=== PATIENT | male | born 1950 | race African-American/Black ===

== ENCOUNTER 2019-08-16 14:42 | Inpatient (IN) | payer OTHER ==
--- NOTE | 2019-08-16 14:55 | PDOC ---
History of Present Illness - General Stated Complaint: Syncope Time Seen by Provider: 08/16/19 14:55 History Source: Patient Exam Limitations: No Limitations - History of Present Illness Initial Comments: 08/18/19 23:35 HPI: 69M PMH HTN, CHF, s/p PPM, ?CKD, colon ca (active) BIBEMS after being found sitting up unresponsive at a restaurant. Daughter at bedside states she was shaking the pt and put ice on his face and he did not respond. Pt came to after EMS arrived. Pt states he has been struggling with insomnia and often sleeps during the day; states he felt sleepy before immediately before the episode. Endorses recent loose stool; currently on IV abx via PICC line at rehab (dc from [facility] for sepsis). Denies f/c, cp/palpitations/sob, n/v/ abdpain, dysuria/frequency. Pt is not linked into his medical hx; believes PPM is [employer]. No headstrike or fall - Not found on ground. Past History - Past Medical History Allergies/Adverse Reactions: Allergies Allergy/AdvReac Type Severity Reaction Status Date / Time LÁZARO Inhibitors Allergy Verified 08/16/19 15:32 Home Medications: Ambulatory Orders Aspirin [Adult Aspirin Regimen] 81 mg PO DAILY 08/16/19 Carvedilol [Coreg -] 25 mg PO BID 08/16/19 Clonidine HCl 0.2 mg PO [id number] 08/16/19 Clopidogrel Bisulfate [Plavix] 75 mg PO DAILY 08/16/19 Folic Acid 1 mg PO DAILY 08/16/19 Hydralazine HCl 25 mg PO TID 08/16/19 Isosorbide Mononitrate [Isosorbide Mononitrate ER] 60 mg PO DAILY 08/16/19 Nafcillin in Dextrose,Iso-Osm [Nafcillin 2 gm/ 100 ml Inj] 2 gm IV Q4H 08/16/19 Nifedipine ER [Procardia Xl -] 60 mg PO BID 08/16/19 Spironolactone 25 mg PO DAILY 08/16/19 Thiamine HCl [B-1] 100 mg PO DAILY 08/16/19 metroNIDAZOLE [Flagyl -] 500 mg PO TID 08/16/19 Review of Systems - Review of Systems Able to Perform ROS?: Yes Comments:: 08/18/19 23:35 ROS: CONSTITUTIONAL: Denies F / C HEENT: Denies headache, lightheadedness, dizziness. RESP: Denies SOB CARD: Denies chest pain, palpitations GI: Endorses diarrhea/loose stool. Denies N / V, abdominal pain, bloody stool, inability to tolerate PO : Denies dysuria, frequency SKIN: Denies rashes NEURO: Denies numbness, tingling, weakness Is the patient limited [place] proficient: No *Physical Exam - Physical Exam Comments: 08/18/19 23:35 PE: GEN: Well appearing, NAD, comfortable. AAOx3 HEENT: NC/AT, EOMI, PERRLA. No facial asymmetry. Moist mucous membranes. Normal voice. Supple neck w/ FROM. CV: S1/S2, RRR, no m/r/g LUNG: CTAB, no wheezes, crackles, rales, rhonchi. GI: soft, ndnt, +BS, no guarding, no rebound. No masses. EXTREMITIES: None/trace LE edema. No obvious deformities of all extremities. SKIN: warm, dry, normal turgor PSYCH: normal mood and affect NEURO: Moving all extremities well. ED Treatment Course - LABORATORY CBC & Chemistry Diagram: 08/17/19 06:00 08/17/19 06:00 Medical Decision Making - Medical Decision Making 08/16/19 15:45 MDM: 69M BIBEMS for unresponsive vs syncopal episode. DDx - dysrhythmia, dehydration, vasovagal, infection - cbc, cmp, cardiac, bnp - cxr - ekg 08/16/19 16:32 admit labs reviewed //ADMITTED Discharge - Discharge Information Problems reviewed: Yes Clinical Impression/Diagnosis: Loss of consciousness - Admission Yes - Follow up/Referral - Patient Discharge Instructions - Post Discharge Activity
[2019-08-16 16:01] LABS: BASO % 0.9 % (0-2.0); EOS % 12.6 % (0-4.5); HEMATOCRIT 21.9 % (35.4-49); HEMOGLOBIN 7.2 GM/dL (11.7-16.9); LYMPH % 11.4 % (8-40); MCH 29.2 pg (25.7-33.7); MCHC 32.7 g/dl (32.0-35.9); MEAN CELL VOLUME 89.4 fl (80-96); MEAN PLT VOLUME 6.5 fl (7.5-11.1); MONO % 7.2 % (3.8-10.2); NEUT % 67.9 % (42.8-82.8); PLATELET COUNT 458 K/MM3 (134-434); RBC 2.45 M/mm3 (4.00-5.60); RDW 16.9 % (11.9-15.9); WHITE BLOOD COUNT 7.9 K/mm3 (4.0-10.0)
[2019-08-16 16:13] LABS: INR 1.32 (0.83-1.09); PROTHROMBIN TIME (PATIENT) 15.6 SEC (9.7-13.0)
[2019-08-16 16:28] LABS: ALBUMIN 1.3 g/dl (3.4-5.0); ALK PHOS 57 U/L (45-117); ANION GAP 11 MMOL/L (8-16); BILIRUBIN,TOTAL 0.6 mg/dL (0.2-1); BLOOD UREA NITROGEN 39.7 mg/dL (7-18); CALCIUM 7.1 mg/dL (8.5-10.1); CHLORIDE 114 mmol/L (98-107); CO2 20 mmol/L (21-32); CREATININE 5.4 mg/dL (0.55-1.3); GLUCOSE,RANDOM 144 mg/dL (74-106); POTASSIUM 3.6 mmol/L (3.5-5.1); SGOT/AST 7 U/L (15-37); SGPT/ALT < 6 U/L (13-61); SODIUM 144 mmol/L (136-145); TOT PROT 4.6 g/dl (6.4-8.2)
[2019-08-16 16:29] LABS: N-TERMINAL BNP 1939.1 pg/ml (5-125)
--- NOTE | 2019-08-16 16:34 | PDOC ---
Attending Attestation - Resident Resident Name: Josh Crane - ED Attending Attestation I have performed the following: I have examined & evaluated the patient, The case was reviewed & discussed with the resident, I agree w/resident's findings & plan, Exceptions are as noted - HPI HPI: 08/16/19 16:32 69 M with h/o HTN, CHF, CKD, PPM, presenting for syncopal episode. Pt was at a restaurant eating when he slumped over unresponsive. Daughter states that she was unable to wake him for several minutes. Pt was seated the whole time, did not fall or hit his head. Pt has no recollection of the episode. Denies CP/SOB/ palpitations. Denies any preceding lightheadedness. Pt states that he is currently being treated for "sepsis" via picc line. - Physicial Exam PE: 08/16/19 16:33 GENERAL: Awake, alert, and fully oriented, in no acute distress. HEAD: No signs of trauma EYES: PERRLA, EOMI, sclera anicteric, conjunctiva clear ENT: Auricles normal inspection, hearing grossly normal, nares patent, oropharynx clear without exudates. Moist mucosa NECK: Nontender, no stepoffs, Normal ROM, supple, no lymphadenopathy, JVD, or masses LUNGS: Breath sounds equal, clear to auscultation bilaterally. No wheezes, and no crackles HEART: Regular rate and rhythm, normal S1 and S2, no murmurs, rubs or gallops ABDOMEN: Soft, nontender, normoactive bowel sounds. No guarding, no rebound. No masses EXTREMITIES: Normal range of motion, no edema. No clubbing or cyanosis. No cords, erythema, or tenderness NEUROLOGICAL: Cranial nerves II through XII intact. 5/5 strength and sensation in all extremities, Normal speech, normal gait, normal cerebellar function SKIN: Warm, Dry, normal turgor, no rashes or lesions noted. - Medical Decision Making 08/16/19 16:33 69 M with syncopal episode. EKG paced rhythm. - Labs, cardiac enzymes - Interrogate pacer
--- NOTE | 2019-08-16 17:15 | HP ---
<KbheatherEvangelist - Last Filed: 08/18/19 12:28> UPDATE: Called [facility] who provided some further history: Pt was seen for MSSA staph bacteremia without described source. Previously was treated with Vancomycin during that stay. Pt was sent out with PICC line and Naficillin to be completed 08/17/19 with reculture on Monday 08/20 for clearance. Pt also was found to have cirrhosis with significant ascites and received therapeutic paracentesis at that time. Further history provided was edited in original note as below CHIEF COMPLAINT: Syncopal episodes PCP: None Water Manager: None Renal: None HISTORY OF PRESENT ILLNESS: 69M with h/o HTN, CKD IV?, recent sepsis with long-term IV ABX via picc, PPM insertion 11/03 to unknown underlying disease who presents today with suspected syncopal event. Pt and daughter at bedside state that patient was eating at [facility] when he suddenly became unresponsive. His daughter was unable to arouse him even with ice/cold water on his face. Pt remained sitting upright and finally regained consciousness once EMS arrive. Upon regaining consciousness pt was at baseline mentation and did not have any notable urinary or fecal incontinence. Pt only had a few bites of food and did not finish his meal. In addition, pt has been having frequent diarrhea episodes without blood or mucus for the past 3 days. He has had poor appetite and admits not drinking any more frequently. Otherwise pt notes he's had insomnia for the past week and has not been sleeping well. He denies any SOB, CP, palpitations, preceeding lightheadedness/ dizziness, constitutional symptoms. Pt endorses abdominal pain of the lower quadrants intermittently for the past week as well. His abdomen has been increasing in distention and he has previously had a paracentesis about 1-2 months prior. He denies any fevers/ chills at this time. Denies any night sweats, alcohol drinking, previous liver failure, jaundice, pruritius. Pt describes recently being at [facility] where he received a septic workup for bacteremia (does not know source) and was given PICC line and IV Naficillin with frequency. Denies any soft tissue or bone infections. He reports he was bacteremic, but does not know what the source was PAST MEDICAL HISTORY: HTN CKD III Systolic HF (EF 40% at [facility]) PVD Atrial sensed-ventricular paced PPM PAST SURGICAL HISTORY: PPM insertion Prior paracentesis Social History: Smoking: Denies Alcohol: Denies Drugs: Denies [place] the [address] and moving to [place] closer to daughter. Independent in ADLs. Poor follow-up without outpatient physicians. Allergies LÁZARO Inhibitors Allergy (Verified 08/16/19 15:32) HOME MEDICATIONS: Home Medications Medication Instructions Recorded Aspirin [Adult Aspirin Regimen] 81 mg PO DAILY 08/16/19 Carvedilol [Coreg -] 25 mg PO BID 08/16/19 Clonidine HCl 0.2 mg PO [id number] 08/16/19 Clopidogrel Bisulfate [Plavix] 75 mg PO DAILY 08/16/19 Folic Acid 1 mg PO DAILY 08/16/19 Hydralazine HCl 25 mg PO TID 08/16/19 Isosorbide Mononitrate [Isosorbide 60 mg PO DAILY 08/16/19 Mononitrate ER] Nafcillin in Dextrose,Iso-Osm 2 gm IV Q4H 08/16/19 [Nafcillin 2 gm/ 100 ml Inj] Nifedipine ER [Procardia Xl -] 60 mg PO BID 08/16/19 Spironolactone 25 mg PO DAILY 08/16/19 Thiamine HCl [B-1] 100 mg PO DAILY 08/16/19 metroNIDAZOLE [Flagyl -] 500 mg PO TID 08/16/19 REVIEW OF SYSTEMS As per HPI PHYSICAL EXAMINATION Vital Signs - 24 hr 08/16/19 08/16/19 14:57 14:58 Temperature 97.7 F Pulse Rate 62 Respiratory 18 17 Rate Blood Pressure 106/57 L O2 Sat by Pulse 97 97 Oximetry (%) GENERAL: NAD, Awake, alert, and fully oriented HEENT: NC/AT, ALIA, EOMI without nystagmus, sclera anicteric, no conjunctival pallor, MMM NECK: No JVD LUNGS: CTA bilaterally. No wheezes, and no crackles. No accessory muscle use. CHEST: No thoracotomy scars, PPM noted without any overlying erythema HEART: RRR, normal S1 and S2 without murmur ABDOMEN: Soft, tensely distendend, slight TTP in lower quadrants, distant bowel sounds but present, no guarding, no rebound, no caput medusa, no hepatomegaly. EXTREMITIES: PICC line noted in L upper extremity C/D/I, 2+ DP pulses, warm, well-perfused. No calf tenderness. No peripheral edema. NEUROLOGICAL: CN II-XII intact. Strength 5/5 throughout. Sensation intact throughout. Stands without difficulty and mobile. Normal speech. Gait not observed. PSYCHIATRIC: Cooperative. Good eye contact. Appropriate mood and affect. SKIN: Warm, dry, no rashes or lesions noted Laboratory Results - last 24 hr 08/16/19 08/16/19 08/16/19 15:46 15:46 15:47 WBC 7.9 RBC 2.45 L Hgb 7.2 L Hct 21.9 L MCV 89.4 MCH 29.2 MCHC 32.7 RDW 16.9 H Plt Count 458 H MPV 6.5 L Absolute Neuts (auto) 5.3 Neutrophils % 67.9 Lymphocytes % 11.4 Monocytes % 7.2 Eosinophils % 12.6 H Basophils % 0.9 Nucleated RBC % 0 PT with INR INR Sodium 144 Potassium 3.6 Chloride 114 H Carbon Dioxide 20 L Anion Gap 11 BUN 39.7 H Creatinine 5.4 H Est GFR (CKD-EPI)AfAm 11.45 Est GFR (CKD-EPI)NonAf 9.88 POC Glucometer Random Glucose 144 H Calcium 7.1 L Total Bilirubin 0.6 AST 7 L ALT < 6 L Alkaline Phosphatase 57 Creatine Kinase 166 Creatine Kinase Index 1.2 CK-MB (CK-2) 2.0 Troponin I 0.02 B-Natriuretic Peptide 1939.1 H Total Protein 4.6 L Albumin 1.3 L 08/16/19 08/16/19 15:47 15:48 WBC RBC Hgb Hct MCV MCH MCHC RDW Plt Count MPV Absolute Neuts (auto) Neutrophils % Lymphocytes % Monocytes % Eosinophils % Basophils % Nucleated RBC % PT with INR 15.60 H INR 1.32 H Sodium Potassium Chloride Carbon Dioxide Anion Gap BUN Creatinine Est GFR (CKD-EPI)AfAm Est GFR (CKD-EPI)NonAf POC Glucometer 132 Random Glucose Calcium Total Bilirubin AST ALT Alkaline Phosphatase Creatine Kinase Creatine Kinase Index CK-MB (CK-2) Troponin I B-Natriuretic Peptide Total Protein Albumin Active Medications Aspirin (Ecotrin -) 81 mg PO DAILY ERMIAS Last Admin: 08/18/19 09:41 Dose: 81 mg Carvedilol (Coreg -) 25 mg PO BID [facility] Last Admin: 08/18/19 09:41 Dose: 25 mg Clonidine (Catapres -) 0.2 mg PO BID [facility] Last Admin: 08/18/19 09:43 Dose: 0.2 mg Folic Acid (Folic Acid -) 1 mg PO DAILY [facility] Last Admin: 08/18/19 09:41 Dose: 1 mg Hydralazine HCl (Apresoline -) 25 mg PO TID [facility] Last Admin: 08/18/19 06:32 Dose: 25 mg Nafcillin Sodium 2 gm/ (Dextrose) 100 mls @ 200 mls/hr IVPB Q4H-IV [facility] Last Admin: 08/18/19 09:42 Dose: 200 mls/hr Isosorbide Mononitrate (Imdur -) 60 mg PO DAILY [facility] Last Admin: 08/18/19 09:41 Dose: 60 mg Metronidazole (Flagyl -) 500 mg PO TID [facility] Last Admin: 08/18/19 06:32 Dose: 500 mg Nifedipine (Procardia Xl -) 60 mg PO BID [facility] Last Admin: 08/18/19 09:41 Dose: 60 mg Spironolactone (Aldactone -) 25 mg PO DAILY [facility] Last Admin: 08/18/19 09:41 Dose: 25 mg Thiamine HCl (Vitamin B1 -) 100 mg PO DAILY [facility] Last Admin: 08/18/19 09:42 Dose: 100 mg ASSESSMENT/PLAN: Syncopal Event Normocytic anemia Renal failure (CKD III?) Systolic heart failure Cirrhosis with ascites HTN --Syncopal event while sitting down possibly vasovagal from eating, however suspicious for other activity --Interrogate PPM; pt states it is [place], no paperwork available --Echocardiogram if unable to obtain records --Cardiac monitoring --Check orthostatics; if + can hydrate --Monitor for further episodes --Normocytic anemia likely from chronic disease, however pt is unsure of baseline --Ordered reticulocyte count, LDH, iron studies and b-vitamin studies for AM --Would avoid transfusion for now and repeat CBC --No active signs of bleeding; monitor --Pt with known CKD III clinically volume overloaded --No electrolyte abnormalities or any shortness of breath currently; no emergent dialysis need --Consulted nephrology --Pt has refused HD in the past per him; however it was discussed with him on 2 separate occasions --Renal/bladder U/S ordered; urine studies ordered --Will call for past medical history and records from [facility] as pt unsure of what agent and why he was receiving ABX through picc line --Will reconcile medications as well and continue home dose meds for HTN and Heart failure as hemodynamics allow FEN: Fluids: Avoid; fluid overloaded Electrolyte abnormalities: None Nutrition: Renal diet PPX: DVT - SCDs for now as unsure if blood loss is contributing to anemia GI - Not indicated right now Dispo: Admit to telemetry for complex medical problems and syncopal episode Evangelist Mckeon, DO - IM PGY-3 Visit type - Emergency Visit Emergency Visit: Yes ED Registration Date: 08/16/19 Care time: The patient presented to the Emergency Department on the above date and was hospitalized for further evaluation of their emergent condition. - New Patient This patient is new to me today: Yes Date on this admission: 08/16/19 - Critical Care Critical Care patient: No ATTENDING PHYSICIAN STATEMENT I saw and evaluated the patient. I reviewed the resident's note and discussed the case with the resident. I agree with the resident's findings and plan as documented. SUBJECTIVE: OBJECTIVE: ASSESSMENT AND PLAN: <Raji Purvis - Last Filed: 09/02/19 02:08> Seen and examined; please see resident note for further discussion. Agree with findings as documented above aside from as I have supplemented below. Independently verified all PE findings and omalley historical information. Reviewed all imaging, labs, and vitals. Discussed at length with subspecialty consults and resident team. No further complaints VS, labs, imaging reviewed NAD, AAO, resting in bed NC AT EOMI PERRLA Lungs without focal findings, w/ sym exp NT ND +BS CN2-12 wnl, no fnd HOME MEDICATIONS: Home Medications Medication Instructions Recorded Aspirin [Adult Aspirin Regimen] 81 mg PO DAILY 08/16/19 Carvedilol [Coreg -] 25 mg PO BID 08/16/19 Clonidine HCl 0.2 mg PO [id number] 08/16/19 Clopidogrel Bisulfate [Plavix] 75 mg PO DAILY 08/16/19 Folic Acid 1 mg PO DAILY 08/16/19 Hydralazine HCl 25 mg PO TID 08/16/19 Isosorbide Mononitrate [Isosorbide 60 mg PO DAILY 08/16/19 Mononitrate ER] Nafcillin in Dextrose,Iso-Osm 2 gm IV Q4H 08/16/19 [Nafcillin 2 gm/ 100 ml Inj] Nifedipine ER [Procardia Xl -] 60 mg PO BID 08/16/19 Spironolactone 25 mg PO DAILY 08/16/19 Thiamine HCl [B-1] 100 mg PO DAILY 08/16/19 metroNIDAZOLE [Flagyl -] 500 mg PO TID 08/16/19 10 sys ROS done and negative aside from HPI PHYSICAL EXAMINATION Vital Signs - 24 hr 08/16/19 08/16/19 08/16/19 14:57 14:58 17:28 Temperature 97.7 F 98.7 F Pulse Rate 62 Pulse Rate [ 69 Apical] Respiratory 18 17 18 Rate Blood Pressure 106/57 L Blood Pressure 105/65 [Left Arm] O2 Sat by Pulse 97 97 99 Oximetry (%) 08/16/19 08/16/19 08/16/19 18:16 18:30 21:00 Temperature 97.3 F L Pulse Rate 65 Pulse Rate [ Apical] Respiratory 20 20 Rate Blood Pressure 117/70 Blood Pressure [Left Arm] O2 Sat by Pulse 98 98 98 Oximetry (%) 08/16/19 08/17/19 08/17/19 22:00 02:00 06:00 Temperature 98.4 F 97.8 F 98.4 F Pulse Rate 64 68 73 Pulse Rate [ Apical] Respiratory 20 20 20 Rate Blood Pressure 125/77 133/88 138/80 Blood Pressure [Left Arm] O2 Sat by Pulse Oximetry (%) Laboratory Results - last 24 hr 08/16/19 08/16/19 08/16/19 15:46 15:46 15:47 WBC 7.9 RBC 2.45 L Hgb 7.2 L Hct 21.9 L MCV 89.4 MCH 29.2 MCHC 32.7 RDW 16.9 H Plt Count 458 H MPV 6.5 L Absolute Neuts (auto) 5.3 Neutrophils % 67.9 Lymphocytes % 11.4 Monocytes % 7.2 Eosinophils % 12.6 H Basophils % 0.9 Nucleated RBC % 0 ESR PT with INR INR Sodium 144 Potassium 3.6 Chloride 114 H Carbon Dioxide 20 L Anion Gap 11 BUN 39.7 H Creatinine 5.4 H Est GFR (CKD-EPI)AfAm 11.45 Est GFR (CKD-EPI)NonAf 9.88 POC Glucometer Random Glucose 144 H Calcium 7.1 L Total Bilirubin 0.6 AST 7 L ALT < 6 L Alkaline Phosphatase 57 Creatine Kinase 166 Creatine Kinase Index 1.2 CK-MB (CK-2) 2.0 Troponin I 0.02 C-Reactive Protein 2.3 H B-Natriuretic Peptide 1939.1 H Total Protein 4.6 L Albumin 1.3 L 08/16/19 08/16/19 08/16/19 15:47 15:48 17:45 WBC RBC Hgb Hct MCV MCH MCHC RDW Plt Count MPV Absolute Neuts (auto) Neutrophils % Lymphocytes % Monocytes % Eosinophils % Basophils % Nucleated RBC % ESR 53 H PT with INR 15.60 H INR 1.32 H Sodium Potassium Chloride Carbon Dioxide Anion Gap BUN Creatinine Est GFR (CKD-EPI)AfAm Est GFR (CKD-EPI)NonAf POC Glucometer 132 Random Glucose Calcium Total Bilirubin AST ALT Alkaline Phosphatase Creatine Kinase Creatine Kinase Index CK-MB (CK-2) Troponin I C-Reactive Protein B-Natriuretic Peptide Total Protein Albumin ASSESSMENT/PLAN: Agree with problem list and plan Need to Discuss overall goals of care and HD ATTENDING PHYSICIAN STATEMENT I saw and evaluated the patient. I reviewed the resident's note and discussed the case with the resident. I agree with the resident's findings and plan as documented. SUBJECTIVE: OBJECTIVE: ASSESSMENT AND PLAN:
[2019-08-16 18:29] VITALS: BMI 25.8
[2019-08-16] MEDS ORDERED: NAFCILLIN IN DEXTROSE ISO OSM IV SCH (18:30)
[2019-08-16] MEDS ORDERED: [UNRECOGNIZED DRUG - OTHER] IV SCH (18:30)
--- NOTE | 2019-08-16 18:35 | CONSULT ---
Consult Consult Specialty:: Nephrology Reason for Consultation:: CKD - History of Present Illness Chief Complaint: syncope History of Present Illness: Pt is a 69 year old male with pmhx of htn, chf, ckd, ppm, and ascites who presented to the ER after a syncopal episode. He does not remember what happened. He is a very poor historian. He says he does have kidney disease but does not know why. He denies nsaid use. He says that he does not follow with a primary as an outpt. He says that he is being treated for bacteria in the blood via a right arm picc line. He does have ascites on exam and he says that he had a paracentesis a few days ago. He denies dysuria or hematuria. He denies shortness of breath. - History Source History Provided By: Patient, Medical Record - Past Medical History Cardio/Vascular: Yes: CHF, HTN Renal/: Yes: Renal Inusuff Heme/Onc: Yes: Anemia - Alcohol/Substance Use Hx Alcohol Use: No - Smoking History Smoking history: Unknown if ever smoked Have you smoked in the past 12 months: No Home Medications - Allergies Allergies/Adverse Reactions: Allergies Allergy/AdvReac Type Severity Reaction Status Date / Time LÁZARO Inhibitors Allergy Verified 08/16/19 15:32 - Home Medications Home Medications: Ambulatory Orders Aspirin [Adult Aspirin Regimen] 81 mg PO DAILY 08/16/19 Carvedilol [Coreg -] 25 mg PO BID 08/16/19 Clonidine HCl 0.2 mg PO [id number] 08/16/19 Clopidogrel Bisulfate [Plavix] 75 mg PO DAILY 08/16/19 Folic Acid 1 mg PO DAILY 08/16/19 Hydralazine HCl 25 mg PO TID 08/16/19 Isosorbide Mononitrate [Isosorbide Mononitrate ER] 60 mg PO DAILY 08/16/19 Nafcillin in Dextrose,Iso-Osm [Nafcillin 2 gm/ 100 ml Inj] 2 gm IV Q4H 08/16/19 Nifedipine ER [Procardia Xl -] 60 mg PO BID 08/16/19 Spironolactone 25 mg PO DAILY 08/16/19 Thiamine HCl [B-1] 100 mg PO DAILY 08/16/19 metroNIDAZOLE [Flagyl -] 500 mg PO TID 08/16/19 Family Medical History Family History: Denies Review of Systems - Review of Systems Constitutional: reports: Malaise Eyes: reports: No Symptoms HENT: reports: No Symptoms Neck: reports: No Symptoms Cardiovascular: reports: No Symptoms Respiratory: reports: No Symptoms Gastrointestinal: reports: No Symptoms Genitourinary: reports: No Symptoms Musculoskeletal: reports: No Symptoms Neurological: reports: Syncope Endocrine: reports: No Symptoms Hematology/Lymphatic: reports: No Symptoms Psychiatric: reports: No Symptoms Physical Exam Vital Signs: Vital Signs Temperature 98.7 F 08/16/19 17:28 Pulse Rate 69 08/16/19 17:28 Respiratory Rate 18 08/16/19 17:28 Blood Pressure 105/65 08/16/19 17:28 O2 Sat by Pulse Oximetry (%) 99 08/16/19 17:28 Constitutional: Yes: Calm Eyes: Yes: Conjunctiva Clear HENT: Yes: Atraumatic Neck: Yes: Supple Cardiovascular: Yes: S1, S2 Respiratory: Yes: CTA Bilaterally Gastrointestinal: Yes: Ascites Renal/: Yes: WNL Edema: Yes Edema: LLE: 2+, RLE: 2+ Integumentary: Yes: WNL Neurological: Yes: Oriented Psychiatric: Yes: Oriented Labs: CBC, BMP 08/16/19 15:47 08/16/19 15:46 Laboratory Tests 08/16/19 08/16/19 08/16/19 15:46 15:46 15:47 WBC 7.9 Hgb 7.2 L Plt Count 458 H Sodium 144 Potassium 3.6 BUN 39.7 H Creatinine 5.4 H B-Natriuretic Peptide 1939.1 H Imaging - Results Chest X-ray: Report Reviewed Assessment/Plan Current Medications Generic Name Dose Route Start Last Admin Trade Name Freq PRN Reason Stop Dose Admin Aspirin 81 mg 08/17/19 10:00 Ecotrin - PO DAILY [facility] Clopidogrel Bisulfate 75 mg 08/17/19 10:00 Plavix - PO DAILY [facility] Non-Formulary Medication 2 gm 08/16/19 18:30 Nafcillin In Dextrose,Iso-Osm [Nafcillin 2 Gm/ 100 Ml Inj] IV Q4H [facility] Spironolactone 25 mg 08/17/19 10:00 Aldactone - PO DAILY [facility] Thiamine HCl 100 mg 08/17/19 10:00 Vitamin B1 - PO DAILY [facility] Impression 1. CKD 2. CHF 3. ascites 4. bactermia 5. htn Plan - check renal ultrasound - check ua and lytes - repeat labs in am - cont diuretics - avoid nsaids - renal diet
[2019-08-16] MEDS: NAFCILLIN - 2 GM in DEXTROSE 5%-WATER 100 ML IVPB SCH ×2 (20:45→22:38)
[2019-08-17] MEDS: NAFCILLIN - 2 GM in DEXTROSE 5%-WATER 100 ML IVPB SCH ×6 (01:01→22:26)
[2019-08-17 07:38] LABS: EOS % 13.7 % (0-4.5); HEMATOCRIT 23.9 % (35.4-49); LYMPH % 15.5 % (8-40); MCH 29.8 pg (25.7-33.7); MCHC 33.4 g/dl (32.0-35.9); MEAN CELL VOLUME 89.1 fl (80-96); NEUT % 61.8 % (42.8-82.8); PLATELET COUNT 500 K/MM3 (134-434); RBC 2.68 M/mm3 (4.00-5.60); WHITE BLOOD COUNT 6.8 K/mm3 (4.0-10.0)
[2019-08-17 08:29] LABS: BLOOD UREA NITROGEN 40.9 mg/dL (7-18); CALCIUM 7.3 mg/dL (8.5-10.1); CREATININE 5.3 mg/dL (0.55-1.3); POTASSIUM 3.8 mmol/L (3.5-5.1)
[2019-08-17] MEDS ORDERED: PATIENT'S OWN MEDICATION (NON-FORMULARY) (Clonidine Hcl [Clonidine Hcl] 0.2 MG) PO SCH (09:00)
--- NOTE | 2019-08-17 09:02 | PN ---
Physical Exam: SUBJECTIVE: Patient seen and examined patient is c/o swelling in his abd and has no pains he ate well no distress no fever or chills He came out of halfway with daughter due to have lunch with her and he passed out he doent remember what happened. no sob his tele is normal sinus rythem OBJECTIVE: Vital Signs Period Temp Pulse Resp BP Sys/Ibanez Pulse Ox Last 24 Hr 97.3 F-98.7 F 62-73 17-20 105-138/57-88 97-99 GENERAL: The patient is awake, alert, and fully oriented, in no acute distress. HEAD: Normal with no signs of trauma. EYES:paller positive ENT: Ears normal, nares patent, oropharynx clear without exudates, moist mucous membranes. NECK: Trachea midline, full range of motion, supple. LUNGS:henna dull in bases HEART: Regular rate and rhythm, S1, S2 without murmur, rub or gallop. ABDOMEN: distended and has ascites present EXTREMITIES: 2+ pulses, warm, well-perfused, no edema. NEUROLOGICAL: Cranial nerves II through XII grossly intact. Normal speech, gait not observed. Laboratory Results - last 24 hr 08/16/19 08/16/19 08/16/19 15:46 15:46 15:47 WBC 7.9 RBC 2.45 L Hgb 7.2 L Hct 21.9 L MCV 89.4 MCH 29.2 MCHC 32.7 RDW 16.9 H Plt Count 458 H MPV 6.5 L Absolute Neuts (auto) 5.3 Neutrophils % 67.9 Lymphocytes % 11.4 Monocytes % 7.2 Eosinophils % 12.6 H Basophils % 0.9 Nucleated RBC % 0 ESR Retic Count PT with INR INR Sodium 144 Potassium 3.6 Chloride 114 H Carbon Dioxide 20 L Anion Gap 11 BUN 39.7 H Creatinine 5.4 H Est GFR (CKD-EPI)AfAm 11.45 Est GFR (CKD-EPI)NonAf 9.88 POC Glucometer Random Glucose 144 H Calcium 7.1 L Iron TIBC Iron Saturation Unsaturated IBC Ferritin Total Bilirubin 0.6 AST 7 L ALT < 6 L Alkaline Phosphatase 57 LD Total Creatine Kinase 166 Creatine Kinase Index 1.2 CK-MB (CK-2) 2.0 Troponin I 0.02 C-Reactive Protein 2.3 H B-Natriuretic Peptide 1939.1 H Total Protein 4.6 L Albumin 1.3 L Vitamin B12 Serum Folate 08/16/19 08/16/19 08/16/19 15:47 15:48 17:45 WBC RBC Hgb Hct MCV MCH MCHC RDW Plt Count MPV Absolute Neuts (auto) Neutrophils % Lymphocytes % Monocytes % Eosinophils % Basophils % Nucleated RBC % ESR 53 H Retic Count PT with INR 15.60 H INR 1.32 H Sodium Potassium Chloride Carbon Dioxide Anion Gap BUN Creatinine Est GFR (CKD-EPI)AfAm Est GFR (CKD-EPI)NonAf POC Glucometer 132 Random Glucose Calcium Iron TIBC Iron Saturation Unsaturated IBC Ferritin Total Bilirubin AST ALT Alkaline Phosphatase LD Total Creatine Kinase Creatine Kinase Index CK-MB (CK-2) Troponin I C-Reactive Protein B-Natriuretic Peptide Total Protein Albumin Vitamin B12 Serum Folate 08/17/19 08/17/19 08/17/19 06:00 06:00 06:00 WBC 6.8 RBC 2.68 L Hgb 8.0 L Hct 23.9 L MCV 89.1 MCH 29.8 MCHC 33.4 RDW 17.0 H Plt Count 500 H MPV 7.0 L Absolute Neuts (auto) 4.2 Neutrophils % 61.8 Lymphocytes % 15.5 D Monocytes % 8.0 Eosinophils % 13.7 H Basophils % 1.0 Nucleated RBC % 0 ESR Retic Count 1.15 PT with INR INR Sodium 142 Potassium 3.8 Chloride 113 H Carbon Dioxide 21 Anion Gap 8 BUN 40.9 H Creatinine 5.3 H Est GFR (CKD-EPI)AfAm 11.72 Est GFR (CKD-EPI)NonAf 10.11 POC Glucometer Random Glucose 84 Calcium 7.3 L Iron 49 L TIBC 132 L Iron Saturation 37 Unsaturated IBC 83 L Ferritin 231.2 Total Bilirubin AST ALT Alkaline Phosphatase LD Total 110 Creatine Kinase Creatine Kinase Index CK-MB (CK-2) Troponin I C-Reactive Protein B-Natriuretic Peptide Total Protein Albumin Vitamin B12 1022 H Serum Folate 24 H Active Medications Generic Name Dose Route Start Last Admin Trade Name Freq PRN Reason Stop Dose Admin Aspirin 81 mg 08/17/19 10:00 Ecotrin - PO DAILY ERMIAS Carvedilol 25 mg 08/17/19 10:00 Coreg - PO BID ERMIAS Clopidogrel Bisulfate 75 mg 08/17/19 10:00 Plavix - PO DAILY ERMIAS Folic Acid 1 mg 08/17/19 10:00 Folic Acid - PO DAILY ERMIAS Hydralazine HCl 25 mg 08/17/19 14:00 Apresoline - PO TID ERMIAS Nafcillin Sodium 2 gm/ 100 mls @ 200 mls/hr 08/16/19 20:45 08/17/19 06:09 Dextrose IVPB 200 mls/hr Q4H-IV ERMIAS Administration Isosorbide Mononitrate 60 mg 08/17/19 10:00 Imdur - PO DAILY ERMIAS Metronidazole 500 mg 08/17/19 14:00 Flagyl - PO TID ERMIAS Nifedipine 60 mg 08/17/19 10:00 Procardia Xl - PO BID ERMIAS Non-Formulary Medication 0.2 mg 08/17/19 09:00 Clonidine Hcl [Clonidine Hcl] PO [id number] ERMIAS Spironolactone 25 mg 08/17/19 10:00 Aldactone - PO DAILY ERMIAS Thiamine HCl 100 mg 08/17/19 10:00 Vitamin B1 - PO DAILY ERMIAS ASSESSMENT/PLAN: Syncope r/o cause will do serial w/u cardio consult and serial cardiac enzymes Htn jinny start on medications and will watch sepsis He has pic line and spoke to halfway and it was suppose to be removed on Monday pt is taking the iv neficilin and called ID consult Anemia due to anemia fo ch disease will try to get labs form halfway and compare LIver cirhosis with ascites continue diuretics and gi consult awaiting ct scan of abd Visit type - Emergency Visit Emergency Visit: Yes ED Registration Date: 08/16/19 Care time: The patient presented to the Emergency Department on the above date and was hospitalized for further evaluation of their emergent condition. - New Patient This patient is new to me today: Yes Date on this admission: 08/17/19 - Critical Care Critical Care patient: No - Discharge Referral Referred to [facility] Med P.C.: No
--- NOTE | 2019-08-17 09:15 | CON.CARD ---
Consult Consult Specialty:: Cardiology Referred by:: Medicine Reason for Consultation:: Syncope - History of Present Illness Chief Complaint: Syncope History of Present Illness: 69 yo AA male known CKD, HTN and underlying liver disease Current assisted living facility Has known PPM placed 1.5 years ago at [facility] (thinks its medtronic) unclear reasons or indication per patient Has had decreased PO in take Now with witnessed syncopal event while eating yesterday Does not recall events leading up to syncope but denies any recent CV symptoms of dizziness, chest pain/pressure/tightness He does endorse exertional dyspnea Cannot identify longitudinal cardiac care but has had his PPM interrogated at home - History Source History Provided By: Patient Limitations to Obtaining History: Poor Historian - Past Medical History Cardio/Vascular: Yes: CHF, HTN Renal/: Yes: Renal Inusuff - Alcohol/Substance Use Hx Alcohol Use: No - Smoking History Smoking history: Unknown if ever smoked Have you smoked in the past 12 months: No Home Medications - Allergies Allergies/Adverse Reactions: Allergies Allergy/AdvReac Type Severity Reaction Status Date / Time LÁZARO Inhibitors Allergy Verified 08/16/19 15:32 - Home Medications Home Medications: Ambulatory Orders Aspirin [Adult Aspirin Regimen] 81 mg PO DAILY 08/16/19 Carvedilol [Coreg -] 25 mg PO BID 08/16/19 Clonidine HCl 0.2 mg PO [id number] 08/16/19 Clopidogrel Bisulfate [Plavix] 75 mg PO DAILY 08/16/19 Folic Acid 1 mg PO DAILY 08/16/19 Hydralazine HCl 25 mg PO TID 08/16/19 Isosorbide Mononitrate [Isosorbide Mononitrate ER] 60 mg PO DAILY 08/16/19 Nafcillin in Dextrose,Iso-Osm [Nafcillin 2 gm/ 100 ml Inj] 2 gm IV Q4H 08/16/19 Nifedipine ER [Procardia Xl -] 60 mg PO BID 08/16/19 Spironolactone 25 mg PO DAILY 08/16/19 Thiamine HCl [B-1] 100 mg PO DAILY 08/16/19 metroNIDAZOLE [Flagyl -] 500 mg PO TID 08/16/19 Family Medical History Family History: Denies, Unremarkable Review of Systems - Review of Systems Constitutional: reports: Loss of Appetite Respiratory: reports: SOB Vital Signs: Vital Signs Temperature 98.4 F 08/17/19 06:00 Pulse Rate 68 11/16/19 08:55 Respiratory Rate 20 08/17/19 08:55 Blood Pressure 165/97 08/17/19 08:55 O2 Sat by Pulse Oximetry (%) 98 08/17/19 08:55 Constitutional: Yes: No Distress Eyes: Yes: WNL Neck: Yes: WNL Respiratory: Yes: Rales Gastrointestinal: Yes: Distention Cardiovascular: Yes: Regular Rate and Rhythm JVD: Yes Edema: LLE: 1+, RLE: 1+ - Other Data Labs, Other Data: CBC, BMP 08/17/19 06:00 08/17/19 06:00 INR, PTT INR 1.32 (0.83-1.09) H 08/16/19 15:47 Troponin, BNP 08/16/19 08/16/19 15:46 15:46 Troponin I 0.02 B-Natriuretic Peptide 1939.1 H Troponin, BNP 08/16/19 08/16/19 15:46 15:46 Troponin I 0.02 B-Natriuretic Peptide 1939.1 H Imaging - Results Chest X-ray: Image Reviewed (Poor inspiration but no active pulmonary disease) Assessment/Plan 69 yo AA male with CKD, HTN underlying liver disease, known PPM now s/p syncope 1) Syncope -Unlcear etiology -Occurred while sitting down -Non-orthostatic here -Tele shows A-V pacing so far -Will interrogate his Medtronic device to assess for arrythmogenic causes 2) Elevated BNP -Clinically with volume overload on exam -Would obtain echo for LV function assessment. None on record here) -Has advanced CKD and has been informed in the past about possible HD, however he has refused this according to him -Will be very challenging to effectively remove fluid with lasix at this stage, would recommend readdressing possible HD if clinically appropriate. 3) HTN -Would resume outpatient antihypertensive regimen
[2019-08-17 09:59] LABS: EPI CELLS 6.6 /HPF (0-5/HPF); HYALINE CASTS 50 /lpf (0-8); URINE APPEARANCE TURBID; URINE BACTERIA 1.7 /hpf (NEGATIVE); URINE BILIRUBIN NEGATIVE (NEGATIVE); URINE COLOR DK YELLOW; URINE GLUCOSE (UA) NEGATIVE (NEGATIVE); URINE KETONE TRACE (NEGATIVE); URINE LEUK ESTERASE 1+ (NEGATIVE); URINE NITRITE NEGATIVE (NEGATIVE); URINE PROTEIN 3+ (NEGATIVE); URINE RBC 211 /hpf (0-4); URINE UROBILINOGEN 0.2 mg/dL (0.2-1.0); URINE WBC 53 /hpf (0-5)
[2019-08-17] MEDS ORDERED: CLOPIDOGREL BISULFATE 75 MG TABLET (FP) PO SCH (10:00)
[2019-08-17] MEDS: ASPIRIN COATED 81 MG TABLET.EC PO SCH (10:08)
[2019-08-17] MEDS: ISOSORBIDE MONONITRATE 60 MG TAB.SR.24H (FP) PO SCH (10:09)
[2019-08-17] MEDS: SPIRONOLACTONE 25 MG TABLET (FP) PO SCH (10:09)
[2019-08-17] MEDS: CARVEDILOL 25 MG TABLET (FP) PO SCH ×2 (10:09→22:24)
[2019-08-17] MEDS: FOLIC ACID 1 MG TABLET (FP) PO SCH (10:09)
[2019-08-17] MEDS: NIFEdipine E.R 60 MG TABLET (UD) PO SCH ×2 (10:09→22:24)
[2019-08-17] MEDS: THIAMINE HCL 100 MG TABLET (FP) PO SCH (10:10)
--- NOTE | 2019-08-17 10:10 | CON.GI ---
Consult Consult Specialty:: GI Referred by:: Dr Lucia Reason for Consultation:: ascites, h/o cirrhosis - History of Present Illness Chief Complaint: Pt admitted with syncope occurring while in restaurant. No residual neurologic signs. He states he was told of cirrhosis in the past but does not know of any other history of liver disease. He has had paracentesis in the past. His main GI complaints now are a distended abdomen and diarrhea for several weeks. He states he had a colonoscopy last year. He says he also has been told of anemia. As mentioned by others he has been being treated for septicemia. - History Source History Provided By: Patient Limitations to Obtaining History: Poor Historian - Past Medical History Cardio/Vascular: Yes: CHF, HTN, Other (pacemaker) Gastrointestinal: Yes: Ascites Hepatobiliary: Yes: Cirrhosis Renal/: Yes: Renal Inusuff Heme/Onc: Yes: Anemia - Past Surgical History Past Surgical History: Yes: Permanent Pacemaker - Alcohol/Substance Use Hx Alcohol Use: No - Smoking History Smoking history: Unknown if ever smoked Have you smoked in the past 12 months: No - Social History Usual Living Arrangement: Assisted Living Home Medications - Allergies Allergies/Adverse Reactions: Allergies Allergy/AdvReac Type Severity Reaction Status Date / Time LÁZARO Inhibitors Allergy Verified 08/16/19 15:32 - Home Medications Home Medications: Ambulatory Orders Aspirin [Adult Aspirin Regimen] 81 mg PO DAILY 08/16/19 Carvedilol [Coreg -] 25 mg PO BID 08/16/19 Clonidine HCl 0.2 mg PO [id number] 08/16/19 Clopidogrel Bisulfate [Plavix] 75 mg PO DAILY 08/16/19 Folic Acid 1 mg PO DAILY 08/16/19 Hydralazine HCl 25 mg PO TID 08/16/19 Isosorbide Mononitrate [Isosorbide Mononitrate ER] 60 mg PO DAILY 08/16/19 Nafcillin in Dextrose,Iso-Osm [Nafcillin 2 gm/ 100 ml Inj] 2 gm IV Q4H 08/16/19 Nifedipine ER [Procardia Xl -] 60 mg PO BID 08/16/19 Spironolactone 25 mg PO DAILY 08/16/19 Thiamine HCl [B-1] 100 mg PO DAILY 08/16/19 metroNIDAZOLE [Flagyl -] 500 mg PO TID 08/16/19 Physical Exam-GI Vital Signs: Vital Signs Temperature 98.8 F 08/17/19 09:02 Pulse Rate 72 08/17/19 09:02 Respiratory Rate 20 08/17/19 09:02 Blood Pressure 165/97 08/17/19 09:02 O2 Sat by Pulse Oximetry (%) 98 08/17/19 08:55 Gastrointestinal Inspection: Yes: Ascites (Tense ascites extending to scrotum.) , Distention ...Palpate: Yes: Firm/Rigid Labs: CBC, BMP 08/17/19 06:00 08/17/19 06:00 INR, PTT INR 1.32 (0.83-1.09) H 08/16/19 15:47 CMP Sodium 142 mmol/L (136-145) 08/17/19 06:00 Potassium 3.8 mmol/L (3.5-5.1) 08/17/19 06:00 Chloride 113 mmol/L (98-107) H 08/17/19 06:00 Carbon Dioxide 21 mmol/L (21-32) 08/17/19 06:00 Anion Gap 8 MMOL/L (8-16) 08/17/19 06:00 BUN 40.9 mg/dL (7-18) H 08/17/19 06:00 Creatinine 5.3 mg/dL (0.55-1.3) H 08/17/19 06:00 Est GFR (CKD-EPI)AfAm 11.72 08/17/19 06:00 Est GFR (CKD-EPI)NonAf 10.11 08/17/19 06:00 POC Glucometer 132 UNITS (80-120) 08/16/19 15:48 Random Glucose 84 mg/dL (74-106) 08/17/19 06:00 Hemoglobin A1c % < 4.2 % (4.2-6.3) L 08/17/19 06:00 Calcium 7.3 mg/dL (8.5-10.1) L 08/17/19 06:00 Iron 49 ug/dL (50-175) L 08/17/19 06:00 TIBC 132 ug/dL (250-450) L 08/17/19 06:00 Iron Saturation 37 % (17.5-39) 08/17/19 06:00 Unsaturated IBC 83 ug/dL (200-275) L 08/17/19 06:00 Ferritin 231.2 ng/ml (8-388) 08/17/19 06:00 Total Bilirubin 0.6 mg/dL (0.2-1) 08/16/19 15:46 AST 7 U/L (15-37) L 08/16/19 15:46 ALT < 6 U/L (13-61) L 08/16/19 15:46 Alkaline Phosphatase 57 U/L (45-117) 08/16/19 15:46 LD Total 110 U/L (87-246) 08/17/19 06:00 Creatine Kinase 166 U/L (26-308) 08/16/19 15:46 Creatine Kinase Index 1.2 % (0.0-5.0) 08/16/19 15:46 CK-MB (CK-2) 2.0 ng/mL (0.5-3.6) 08/16/19 15:46 Troponin I 0.02 ng/ml (0.00-0.05) 08/16/19 15:46 C-Reactive Protein 2.3 MG/DL (0.00-0.3) H 08/16/19 15:46 B-Natriuretic Peptide 1939.1 pg/ml (5-125) H 08/16/19 15:46 Total Protein 4.6 g/dl (6.4-8.2) L 08/16/19 15:46 Albumin 1.3 g/dl (3.4-5.0) L 08/16/19 15:46 Vitamin B12 1022 pg/ml (193-986) H 08/17/19 06:00 Serum Folate 24 ng/mL (3.1-17.5) H 08/17/19 06:00 Imaging - Results Chest X-ray: Report Reviewed Problem List - Problems (1) Ascites Assessment/Plan: I question whether he has cirrhosis. His platelet count is over 400K, which would be unusual in someone whose liver is bad enough to lead to this degree of ascites. He is severely hypoalbuminenic with 3+ proteinuria. Does he have nephrotic syndrome as the cause of his hypoalbuminemia and ascites? Note that his aminotransferases are not only not elevated, they are low. I also stopped his clopidogrel so it will be possible in a few days to tap his ascites. . Code(s): R18.8 - OTHER ASCITES (2) Diarrhea Assessment/Plan: As some receiving antibiotics for some weeks, the most likely diagnosis is C. difficile. I ordered a C. difficile toxin. Code(s): R19.7 - DIARRHEA, UNSPECIFIED
[2019-08-17] MEDS: cloNIDine HCL 0.1 MG TABLET PO SCH ×2 (10:20→22:25)
--- NOTE | 2019-08-17 12:19 | PN ---
Progress Note (short form) - Note Progress Note: ID consult dictated per history and physical he is finishing nafcillin (alf) this weekend for MSSA bacteremia- no other details known- he has a picc line admitted for syncope no fevers or chills no further details available per dr Mckeon's note his nafcillin should be discontinued in am no need for isolation denies diarrhea to me -one loose stool a day having a workup for ascites and syncope now would repeat blood cultures off antiibotics as he has a PPM antibotics to be completed today -will d/w Primary service on Monday Problem List - Problems (1) Bacteremia Code(s): R78.81 - BACTEREMIA
[2019-08-17] MEDS: metroNIDAZOLE 500 MG TABLET PO SCH ×2 (13:55→22:25)
[2019-08-17] MEDS: hydrALAZINE HCL 25 MG TABLET (FP) PO SCH ×2 (13:55→22:24)
[2019-08-17] MEDS ORDERED: FUROSEMIDE 40 MG/4 ML INJECTABLE VIAL IVPUSH ONE (16:36)
--- NOTE | 2019-08-17 16:36 | PN ---
Progress Note, Physician History of Present Illness: Pt seen and examined at bedside. He is awake and alert. He denies shortness of breath. He complains of discomfort from the ascites. - Current Medication List Current Medications: Active Medications Aspirin (Ecotrin -) 81 mg PO DAILY [facility] Last Admin: 08/17/19 10:08 Dose: 81 mg Carvedilol (Coreg -) 25 mg PO BID [facility] Last Admin: 08/17/19 10:09 Dose: 25 mg Clonidine (Catapres -) 0.2 mg PO BID [facility] Last Admin: 08/17/19 10:20 Dose: 0.2 mg Folic Acid (Folic Acid -) 1 mg PO DAILY [facility] Last Admin: 08/17/19 10:09 Dose: 1 mg Hydralazine HCl (Apresoline -) 25 mg PO TID [facility] Last Admin: 08/17/19 13:55 Dose: 25 mg Nafcillin Sodium 2 gm/ (Dextrose) 100 mls @ 200 mls/hr IVPB Q4H-IV [facility] Last Admin: 08/17/19 13:55 Dose: 200 mls/hr Isosorbide Mononitrate (Imdur -) 60 mg PO DAILY [facility] Last Admin: 08/17/19 10:09 Dose: 60 mg Metronidazole (Flagyl -) 500 mg PO TID [facility] Last Admin: 08/17/19 13:55 Dose: 500 mg Nifedipine (Procardia Xl -) 60 mg PO BID [facility] Last Admin: 08/17/19 10:09 Dose: 60 mg Spironolactone (Aldactone -) 25 mg PO DAILY [facility] Last Admin: 08/17/19 10:09 Dose: 25 mg Thiamine HCl (Vitamin B1 -) 100 mg PO DAILY [facility] Last Admin: 08/17/19 10:10 Dose: 100 mg - Objective Vital Signs: Vital Signs Temperature 97.7 F 08/17/19 14:00 Pulse Rate 64 08/17/19 14:00 Respiratory Rate 20 08/17/19 14:00 Blood Pressure 131/73 08/17/19 14:00 O2 Sat by Pulse Oximetry (%) 98 08/17/19 08:55 Constitutional: Yes: Calm Eyes: Yes: Conjunctiva Clear HENT: Yes: Atraumatic Neck: Yes: Supple Cardiovascular: Yes: S1, S2 Respiratory: Yes: CTA Bilaterally Gastrointestinal: Yes: Ascites Genitourinary: Yes: WNL Edema: Yes Edema: LLE: 1+, RLE: 1+ Neurological: Yes: Oriented Psychiatric: Yes: Oriented Labs: CBC, BMP 08/17/19 06:00 08/17/19 06:00 INR, PTT INR 1.32 (0.83-1.09) H 08/16/19 15:47 Assessment/Plan Current Medications Generic Name Dose Route Start Last Admin Trade Name Renan PRN Reason Stop Dose Admin Aspirin 81 mg 08/17/19 10:00 08/17/19 10:08 Ecotrin - PO 81 mg DAILY ERMIAS Administration Carvedilol 25 mg 08/17/19 10:00 08/17/19 10:09 Coreg - PO 25 mg BID ERMIAS Administration Clonidine 0.2 mg 08/17/19 10:00 08/17/19 10:20 Catapres - PO 0.2 mg BID ERMIAS Administration Folic Acid 1 mg 08/17/19 10:00 08/17/19 10:09 Folic Acid - PO 1 mg DAILY ERMIAS Administration Hydralazine HCl 25 mg 08/17/19 14:00 08/17/19 13:55 Apresoline - PO 25 mg TID ERMIAS Administration Nafcillin Sodium 2 gm/ 100 mls @ 200 mls/hr 08/16/19 20:45 08/17/19 13:55 Dextrose IVPB 200 mls/hr Q4H-IV ERMIAS Administration Isosorbide Mononitrate 60 mg 08/17/19 10:00 08/17/19 10:09 Imdur - PO 60 mg DAILY ERMIAS Administration Metronidazole 500 mg 08/17/19 14:00 08/17/19 13:55 Flagyl - PO 500 mg TID ERMIAS Administration Nifedipine 60 mg 08/17/19 10:00 08/17/19 10:09 Procardia Xl - PO 60 mg BID ERMIAS Administration Spironolactone 25 mg 08/17/19 10:00 08/17/19 10:09 Aldactone - PO 25 mg DAILY ERMIAS Administration Thiamine HCl 100 mg 08/17/19 10:00 08/17/19 10:10 Vitamin B1 - PO 100 mg DAILY ERMIAS Administration Impression 1. CKD 2. CHF 3. ascites 4. bactermia 5. htn Plan - start lasix - GI for paracentesis - monitor lytes - urine studies reviewed - cont diuretics - avoid nsaids - renal diet
--- NOTE | 2019-08-17 16:51 | CONS ---
INFECTIOUS DISEASE CONSULTATION DATE OF CONSULTATION: DATE OF DICTATION: 08/17/2019 This is a 69-year-old man who was transferred to the hospital after he apparently had a suspected syncopal event. He apparently was eating when he suddenly became unresponsive. He finally regained consciousness when EMS arrived, and he was at his baseline. He is currently residing at the halfway where he is getting long -term IV antibiotics with nafcillin for apparently an MSSA staphylococcal infection. Details of which are today is Monday were obtained yesterday via the admitting doctor who called the hospital, was able to speak with somebody. Per his H&P, the patient is to complete his nafcillin on the with re-culture in 72 hours for clearance. When he was hospitalized for his staphylococcal infection, apparently, there was no source found and he was found to have cirrhosis with ascites and had received a therapeutic paracentesis. The patient reports again that his abdomen has gotten larger. He denies any history of alcohol use or hepatitis in the past. He denies any fevers and chills and otherwise feels well. PAST MEDICAL HISTORY: Notable for hypertension, CKD, heart failure, PVD, and he has a pacemaker for unclear reasons and this recent staphylococcal infection. SOCIAL HISTORY: He lives in the [place]. 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 There is no history of cigarette, alcohol, or substance use. He has a daughter who lives in [place]. ALLERGIES: He is allergic to LÁZARO INHIBITORS. MEDICATIONS AN OUTPATIENT: Include aspirin, Coreg, clonidine, Plavix, folic acid, hydralazine, isosorbide, nafcillin, nifedipine, spironolactone, thiamine, and Flagyl. It is unclear why he is on the Flagyl. REVIEW OF SYSTEMS: He denies nausea, vomiting. He denies diarrhea. He reports 1 loose bowel movement a day. As stated before, there is no history of HIV, hepatitis in the past. PHYSICAL EXAMINATION: Vital Signs: Temperature is 97.7, pulse of 64, blood pressure 131/73, respiratory rate is 20. He is saturating 98% on room air. HEENT: He is normocephalic. His eyes are anicteric. Neck: Supple. Skin: PICC line site is without any erythema. His pacemaker site is without any erythema. Lungs: Diminished breath sounds at the bases. Abdomen: Soft and he has ascites. Extremities: Without edema. LABORATORY DATA: White count is 6.8, hemoglobin is 8, platelets are 500,000. Sedimentation rate is 53. His reticulocyte count is normal. His BUN is 40 and creatinine 5.3. His urinalysis has 1+ leukocyte esterase with 53 white cells, and his hepatitis serology is pending. In summary, this is a 69-year-old man completing a course of nafcillin for methicillin-sensitive Staphylococcus aureus bacteremia diagnosed at another facility. Per the history and physical by Dr. Mckeon, his nafcillin should be discontinued in the morning. There is no need for isolation. He is having a workup for his ascites and syncope. Would repeat blood cultures off antibiotics as he has a permanent pacemaker and would get records from [facility] if needed. It is unclear why he is on the metronidazole; so, we will have to speak to the halfway. Further recommendations to follow. Thuy [id number] [email or web address]
[2019-08-17] MEDS ORDERED: PT OWN MED DRAWER 7, Y5N ONE ×2 (16:54→21:52)
[2019-08-18] MEDS: NAFCILLIN - 2 GM in DEXTROSE 5%-WATER 100 ML IVPB SCH ×6 (02:00→21:42)
[2019-08-18] MEDS: metroNIDAZOLE 500 MG TABLET PO SCH ×3 (06:32→21:37)
[2019-08-18] MEDS: hydrALAZINE HCL 25 MG TABLET (FP) PO SCH ×3 (06:32→21:37)
[2019-08-18] MEDS: FOLIC ACID 1 MG TABLET (FP) PO SCH (09:41)
[2019-08-18] MEDS: SPIRONOLACTONE 25 MG TABLET (FP) PO SCH (09:41)
[2019-08-18] MEDS: ISOSORBIDE MONONITRATE 60 MG TAB.SR.24H (FP) PO SCH (09:41)
[2019-08-18] MEDS: NIFEdipine E.R 60 MG TABLET (UD) PO SCH ×2 (09:41→21:37)
[2019-08-18] MEDS: ASPIRIN COATED 81 MG TABLET.EC PO SCH (09:41)
[2019-08-18] MEDS: CARVEDILOL 25 MG TABLET (FP) PO SCH ×2 (09:41→21:37)
[2019-08-18] MEDS: THIAMINE HCL 100 MG TABLET (FP) PO SCH (09:42)
[2019-08-18] MEDS: cloNIDine HCL 0.1 MG TABLET PO SCH ×2 (09:43→21:37)
--- NOTE | 2019-08-18 09:43 | PN ---
Progress Note, Physician History of Present Illness: No CV complaints No further syncope Still with nausea - Current Medication List Current Medications: Active Medications Aspirin (Ecotrin -) 81 mg PO DAILY [facility] Last Admin: 08/17/19 10:08 Dose: 81 mg Carvedilol (Coreg -) 25 mg PO BID [facility] Last Admin: 08/17/19 22:24 Dose: 25 mg Clonidine (Catapres -) 0.2 mg PO BID [facility] Last Admin: 08/17/19 22:25 Dose: 0.2 mg Folic Acid (Folic Acid -) 1 mg PO DAILY [facility] Last Admin: 08/17/19 10:09 Dose: 1 mg Hydralazine HCl (Apresoline -) 25 mg PO TID [facility] Last Admin: 08/18/19 06:32 Dose: 25 mg Nafcillin Sodium 2 gm/ (Dextrose) 100 mls @ 200 mls/hr IVPB Q4H-IV [facility] Last Admin: 08/18/19 06:33 Dose: 200 mls/hr Isosorbide Mononitrate (Imdur -) 60 mg PO DAILY [facility] Last Admin: 08/17/19 10:09 Dose: 60 mg Metronidazole (Flagyl -) 500 mg PO TID [facility] Last Admin: 08/18/19 06:32 Dose: 500 mg Nifedipine (Procardia Xl -) 60 mg PO BID [facility] Last Admin: 08/17/19 22:24 Dose: 60 mg Spironolactone (Aldactone -) 25 mg PO DAILY [facility] Last Admin: 08/17/19 10:09 Dose: 25 mg Thiamine HCl (Vitamin B1 -) 100 mg PO DAILY [facility] Last Admin: 08/17/19 10:10 Dose: 100 mg - Objective Vital Signs: Vital Signs Temperature 97.7 F 08/17/19 16:51 Pulse Rate 71 08/18/19 06:00 Respiratory Rate 20 08/18/19 08:32 Blood Pressure 123/80 08/18/19 06:00 O2 Sat by Pulse Oximetry (%) 98 08/18/19 08:32 Constitutional: Yes: No Distress Cardiovascular: Yes: Regular Rate and Rhythm Respiratory: Yes: Rales Edema: Yes Labs: CBC, BMP 08/17/19 06:00 08/17/19 06:00 INR, PTT INR 1.32 (0.83-1.09) H 08/16/19 15:47 Assessment/Plan 69 yo AA male with CKD, HTN underlying liver disease, known PPM now s/p syncope 1) Syncope -Unclear etiology -Occurred while sitting down -Non-orthostatic here -Tele continues to show A-V pacing so far -Despite calling 4 device brands ([employer], [employer], [employer] and [employer]) none of these device brands have him registered. Patient believes it was a Medtronic but has no documentation. Looking at the CXR it looks like a Medtronic dual camber PPM. Will have [facility] contacted and medical records pulled. 2) Elevated BNP -Clinically with volume overload on exam -Would obtain echo for LV function assessment. None on record here -Has advanced CKD and has been informed in the past about possible HD, however he has refused this according to him -Will be very challenging to effectively remove fluid with lasix at this stage, would recommend readdressing possible HD if clinically appropriate. 3) HTN -Would resume outpatient antihypertensive regimen
--- NOTE | 2019-08-18 11:20 | PN ---
Progress Note (short form) - Note Progress Note: Patient is comfortable has no new symptoms except he is still complaining of distention of the abdomen but no pain no fever no chills no nausea vomiting he ate well. I spoke to senior livingarea director of home health sales yesterday and found out to be he has been on nafcillin for some kind of sepsis and today's pulse was last day and is catheter was both come out on Monday. Patient already seen by infectious disease in the hospital he has no sign of any infection blood cultures are negative. He is also seen by molded rubber goods cutter in the hospital by Dr. Ubaldo velazquez and recommended to do the paracentesis. Patient is on Plavix which has been held due to paracentesis anticipation on Monday. Vital Signs Period Temp Pulse Resp BP Sys/Ibanez Pulse Ox Last 24 Hr 97.7 F-98.5 F 64-71 20-20 118-134/57-80 98-98 Physical examination HEENT pallor positive neck supple negative JVD. Lungs bilateral symmetrical Heart S1-S2 positive no arrhythmia noted Abdomen soft and distended ascites present. Neurological he is alert awake oriented and nonfocal and ambulatory CBC, BMP 08/17/19 06:00 08/17/19 06:00 ASSESSMENT/PLAN: Syncope r/o cause will do serial w/u cardio consult and serial cardiac enzymes He still have no arrhythmia on telemetry Htn jinny start on medications and will watch sepsis He has pic line and spoke to senior living and it was suppose to be removed on Monday Patient is seen by infectious disease and recommended to stop antibiotics. Anemia due to anemia fo ch disease CBC is stable LIver cirhosis with ascites continue diuretics, patient is going to be needing paracentesis tomorrow. He is off Plavix due to preop for paracentesis Awaiting abdominal sonogram. Chronic kidney disease Patient has been recommended many time to go on dialysis by outpatient culinary manager but he refuses in the hospital he is seeing Dr. contreras and they are going to arrange for his further renal disease management. Visit type - Emergency Visit Emergency Visit: Yes ED Registration Date: 08/16/19 Care time: The patient presented to the Emergency Department on the above date and was hospitalized for further evaluation of their emergent condition. - New Patient This patient is new to me today: No - Critical Care Critical Care patient: No - Discharge Referral Referred to [facility] No
--- NOTE | 2019-08-18 16:51 | EKG ---
Test Reason : Blood Pressure : / mmHG Vent. Rate : 066 BPM Atrial Rate : 066 BPM P-R Int : 204 ms QRS Dur : 214 ms QT Int : 522 ms P-R-T Axes : 048 -55 112 degrees QTc Int : 547 ms Atrial-sensed ventricular-paced rhythm ABNORMAL ECG WHEN COMPARED WITH ECG OF 17-AUG-2019 10:51, PREMATURE VENTRICULAR COMPLEXES ARE NO LONGER PRESENT Confirmed by ALEX MCNULTY, MATEO ([id number]) on 08/18/2019 4:51:40 PM Referred By: Mason ECHEVERRIA Confirmed By:MATEO JOHNSON MD
[2019-08-18] MEDS ORDERED: PT OWN MED DRAWER 7, Y5N ONE (17:22)
[2019-08-18] MEDS ORDERED: FUROSEMIDE 40 MG/4 ML INJECTABLE VIAL IVPUSH ONE (17:23)
--- NOTE | 2019-08-18 17:25 | PN ---
Progress Note, Physician History of Present Illness: Pt seen and examined at bedside. He is awake and alert. he complains of ascites. - Current Medication List Current Medications: Active Medications Aspirin (Ecotrin -) 81 mg PO DAILY [facility] Last Admin: 08/18/19 09:41 Dose: 81 mg Carvedilol (Coreg -) 25 mg PO BID [facility] Last Admin: 08/18/19 09:41 Dose: 25 mg Clonidine (Catapres -) 0.2 mg PO BID [facility] Last Admin: 08/18/19 09:43 Dose: 0.2 mg Folic Acid (Folic Acid -) 1 mg PO DAILY [facility] Last Admin: 08/18/19 09:41 Dose: 1 mg Furosemide (Lasix Injection -) 80 mg IVPUSH ONCE ONE Stop: 08/18/19 17:24 Hydralazine HCl (Apresoline -) 25 mg PO TID [facility] Last Admin: 08/18/19 15:03 Dose: 25 mg Nafcillin Sodium 2 gm/ (Dextrose) 100 mls @ 200 mls/hr IVPB Q4H-IV [facility] Last Admin: 08/18/19 15:04 Dose: 200 mls/hr Isosorbide Mononitrate (Imdur -) 60 mg PO DAILY [facility] Last Admin: 08/18/19 09:41 Dose: 60 mg Metronidazole (Flagyl -) 500 mg PO TID [facility] Last Admin: 08/18/19 15:03 Dose: 500 mg Nifedipine (Procardia Xl -) 60 mg PO BID [facility] Last Admin: 08/18/19 09:41 Dose: 60 mg Spironolactone (Aldactone -) 25 mg PO DAILY [facility] Last Admin: 08/18/19 09:41 Dose: 25 mg Thiamine HCl (Vitamin B1 -) 100 mg PO DAILY [facility] Last Admin: 08/18/19 09:42 Dose: 100 mg - Objective Vital Signs: Vital Signs Temperature 97.7 F 08/17/19 16:51 Pulse Rate 63 08/18/19 13:59 Respiratory Rate 18 08/18/19 13:59 Blood Pressure 139/85 08/18/19 13:59 O2 Sat by Pulse Oximetry (%) 98 08/18/19 08:32 Constitutional: Yes: Calm Eyes: Yes: Conjunctiva Clear HENT: Yes: Atraumatic Neck: Yes: Supple Cardiovascular: Yes: S1, S2 Respiratory: Yes: CTA Bilaterally Gastrointestinal: Yes: Ascites Genitourinary: Yes: WNL Edema: Yes Edema: LLE: 1+, RLE: 1+ Neurological: Yes: Oriented Psychiatric: Yes: Oriented Labs: CBC, BMP 08/17/19 06:00 08/17/19 06:00 INR, PTT INR 1.32 (0.83-1.09) H 08/16/19 15:47 Assessment/Plan Current Medications Generic Name Dose Route Start Last Admin Trade Name Renan PRN Reason Stop Dose Admin Aspirin 81 mg 08/17/19 10:00 08/18/19 09:41 Ecotrin - PO 81 mg DAILY [facility] Administration Carvedilol 25 mg 08/17/19 10:00 08/18/19 09:41 Coreg - PO 25 mg BID [facility] Administration Clonidine 0.2 mg 08/17/19 10:00 08/18/19 09:43 Catapres - PO 0.2 mg BID [facility] Administration Folic Acid 1 mg 08/17/19 10:00 08/18/19 09:41 Folic Acid - PO 1 mg DAILY [facility] Administration Hydralazine HCl 25 mg 08/17/19 14:00 08/18/19 15:03 Apresoline - PO 25 mg TID [facility] Administration Nafcillin Sodium 2 gm/ 100 mls @ 200 mls/hr 08/16/19 20:45 08/18/19 15:04 Dextrose IVPB 200 mls/hr Q4H-IV [facility] Administration Isosorbide Mononitrate 60 mg 08/17/19 10:00 08/18/19 09:41 Imdur - PO 60 mg DAILY [facility] Administration Metronidazole 500 mg 08/17/19 14:00 08/18/19 15:03 Flagyl - PO 500 mg TID [facility] Administration Nifedipine 60 mg 08/17/19 10:00 08/18/19 09:41 Procardia Xl - PO 60 mg BID [facility] Administration Spironolactone 25 mg 08/17/19 10:00 08/18/19 09:41 Aldactone - PO 25 mg DAILY [facility] Administration Thiamine HCl 100 mg 08/17/19 10:00 08/18/19 09:42 Vitamin B1 - PO 100 mg DAILY [facility] Administration Impression 1. CKD 2. CHF 3. ascites 4. bactermia 5. htn Plan - will give another dose of lasix - gi eval for paracentsis pending - cont aldactone - monitor lytes - avoid nsaids - renal diet
--- NOTE | 2019-08-18 20:04 | EKG ---
Test Reason : Blood Pressure : / mmHG Vent. Rate : 067 BPM Atrial Rate : 067 BPM P-R Int : 208 ms QRS Dur : 214 ms QT Int : 500 ms P-R-T Axes : 045 -62 110 degrees QTc Int : 528 ms Atrial-sensed ventricular-paced rhythm WITH OCCASIONAL PREMATURE VENTRICULAR COMPLEXES ABNORMAL ECG WHEN COMPARED WITH ECG OF 16-AUG-2019 14:54, PREMATURE VENTRICULAR COMPLEXES ARE NOW PRESENT VENT. RATE HAS INCREASED BY 7 BPM Confirmed by LISA CARNES MD ([id number]) on 08/18/2019 8:04:21 PM Referred By: Mason ECHEVERRIA Confirmed By:LISA CARNES MD
--- NOTE | 2019-08-18 20:22 | EKG ---
Test Reason : Blood Pressure : / mmHG Vent. Rate : 060 BPM Atrial Rate : 060 BPM P-R Int : 242 ms QRS Dur : 180 ms QT Int : 522 ms P-R-T Axes : 000 -56 119 degrees QTc Int : 522 ms AV dual-paced rhythm with prolonged AV conduction ABNORMAL ECG NO PREVIOUS ECGS AVAILABLE Confirmed by LISA CARNES MD ([id number]) on 08/18/2019 8:22:02 PM Referred By: Confirmed By:LISA CARNES MD
[2019-08-19] MEDS: NAFCILLIN - 2 GM in DEXTROSE 5%-WATER 100 ML IVPB SCH ×4 (01:25→14:20)
[2019-08-19] MEDS: hydrALAZINE HCL 25 MG TABLET (FP) PO SCH ×3 (05:33→23:16)
[2019-08-19] MEDS: metroNIDAZOLE 500 MG TABLET PO SCH ×2 (05:33→13:07)
[2019-08-19] MEDS ORDERED: PT OWN MED DRAWER 7, Y5N ONE ×4 (09:43→22:38)
--- NOTE | 2019-08-19 10:08 | PN ---
Progress Note, Physician Chief Complaint: syncope History of Present Illness: no more presync/LH/syncope no cp, sob, palpit - Current Medication List Current Medications: Active Medications Aspirin (Ecotrin -) 81 mg PO DAILY [facility] Last Admin: 08/18/19 09:41 Dose: 81 mg Carvedilol (Coreg -) 25 mg PO BID [facility] Last Admin: 08/18/19 21:37 Dose: 25 mg Clonidine (Catapres -) 0.2 mg PO BID [facility] Last Admin: 08/18/19 21:37 Dose: 0.2 mg Folic Acid (Folic Acid -) 1 mg PO DAILY [facility] Last Admin: 08/18/19 09:41 Dose: 1 mg Hydralazine HCl (Apresoline -) 25 mg PO TID [facility] Last Admin: 08/19/19 05:33 Dose: Not Given Nafcillin Sodium 2 gm/ (Dextrose) 100 mls @ 200 mls/hr IVPB Q4H-IV [facility] Last Admin: 08/19/19 06:28 Dose: 200 mls/hr Isosorbide Mononitrate (Imdur -) 60 mg PO DAILY [facility] Last Admin: 08/18/19 09:41 Dose: 60 mg Metronidazole (Flagyl -) 500 mg PO TID [facility] Last Admin: 08/19/19 05:33 Dose: Not Given Nifedipine (Procardia Xl -) 60 mg PO BID [facility] Last Admin: 08/18/19 21:37 Dose: 60 mg Spironolactone (Aldactone -) 25 mg PO DAILY [facility] Last Admin: 08/18/19 09:41 Dose: 25 mg Thiamine HCl (Vitamin B1 -) 100 mg PO DAILY [facility] Last Admin: 08/18/19 09:42 Dose: 100 mg - Objective Vital Signs: Vital Signs Temperature 97.8 F 08/19/19 09:00 Pulse Rate 64 08/19/19 09:00 Respiratory Rate 18 08/19/19 09:00 Blood Pressure 111/76 08/19/19 09:00 O2 Sat by Pulse Oximetry (%) 98 08/19/19 09:00 Constitutional: Yes: Well Nourished, No Distress, Calm Cardiovascular: Yes: Regular Rate and Rhythm, S1, S2. No: JVD, Gallop, Murmur Respiratory: Yes: Regular, CTA Bilaterally. No: Accessory Muscle Use, Rales, Wheezes Extremities: No: Cold Edema: No Neurological: Yes: Alert, Oriented Psychiatric: No: Agitated Labs: CBC, BMP 08/17/19 06:00 08/17/19 06:00 INR, PTT INR 1.32 (0.83-1.09) H 08/16/19 15:47 Assessment/Plan tele: NSR, V-p >> V-s; NSVT x 3b. no definite PM malfunction (? 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 Implanted at [employer] Acute HF, ? type; abd distenstion -Clinically with volume overload on exam, ++ distended abdomen--lasix per renal , ? paracentesis per GI -Will obtain echo for LV function assessment. None on record here -Has advanced CKD and has been informed in the past about possible HD, however he has refused this according to him -Will be very challenging to effectively remove fluid with lasix at this stage, would recommend readdressing possible HD if clinically appropriate. HTN -bp controlled -cont outpatient antihypertensive regimen
--- NOTE | 2019-08-19 10:18 | PN ---
Progress Note (short form) - Note Progress Note: Hospitalist Medicine Pt c/o abdominal discomfort 2/2 distension. Otherwise without complaint. Discussed w/ [facility]; pt was to have the abx d/c on 08/16. Then PICC can be removed. Blood cx ordered 72hrs after nafcillin d/c per ID recs. Vitals 08/19/19 09:00 Temperature 97.8 F Pulse Rate 64 Respiratory 18 Rate Blood Pressure 111/76 Physical Exam general: resting in bed. sitting up HEENT: NCAT, PERRLA neck: supple cardio: +paced rhythm appreciated. no r/m/g pulm: CTA b/l however limited 2/2 abd discomfort from distension. abdomen: obese, distended, fluid wave appreciated. no guarding LE: 2+ pulses. trace edema appreciated neuro: audit specialist 2-12 grossly intact. able to move UE, LE freely Laboratory Tests 08/17/19 08/17/19 08/17/19 06:00 06:00 06:00 WBC 6.8 Hgb 8.0 L Hct 23.9 L Plt Count 500 H Sodium 142 Potassium 3.8 Chloride 113 H Carbon Dioxide 21 BUN 40.9 H Creatinine 5.3 H Hep A IgM Ab Confirm Negative Hep Bs Antigen Negative Hep B Core IgM Ab Negative HCV Quantitation Pending Microbiology 08/18/19 16:00 Stool Clostridioides difficile Antigen - Final 08/18/19 16:00 Stool Clostridioides difficile Toxin Assay - Final Assessment/plan 69 y/o M with PMH HTN, CKD4, recent MSSA bacteremia on nafcillin, PPM, ascites, who presented for suspected syncopal event. Pt currently evaluated for syncopal event etiology as well as ascites mgmt. #Syncopal event -ECHO without acute abnormality; 60-65% EF, LA mild dilation, mild MR, TR mild-moderate , small pericardial effusion -PVCs noted on tele -cardio interrogating PPM -f/u carotid duplex #Ascites -plavix held 08/17 (3 days) will likely need at least 5 days off prior to paracentesis -will need to d/w IR when will occur -c/w aldactone, lasix 80mg x 1 today -f/u CTAP for further determination of extent -GI: Dr. Paula #Recent MSSA bacteremia w/ PICC line -nafcillin has been d/c -will repeat blood cx 72 hrs (08/22) if negative, will d/c PICC line by IR -ID: Dr. Panchal #Elevated BNP -ECHO done; result above -may need HD given CKD; may be difficult to remove fluid via lasix per cardio, pt has refused HD previously #HTN- controlled hx PPM -c/w hydralazine, clonidine -c/w imdur, coreg -c/w procardia -Cardio on board: Dr. Osorio #CKD4 -f/u renal, bladder sono #hx flagyl abx -has been d/c -d/w facility; was on d/t suspicion for c. diff however tested (-) x 2 (-) at our facility, will d/c #F/E/N not on ivf continue to follow lytes renal diet #ppx DVT: SCD's #Dispo cont'd monitoring on tele for arrhythmia needs paracentesis <Morenita Banuelos - Last Filed: 08/19/19 16:54> - Note Progress Note: Seen and examined; please see resident note for further discussion. Agree with their note including assessment and plan as outlined aside from as supplemented myself. Independently reviewed and verified all omalley historical and PE findings as well as labs and imaging. Discussed at length with resident and consulting services. Aside from above no overnight events indicated VS, labs, imaging reviewed NAD AAO resting in bed NC AT EOMI PERRLA RRR s1/2 Lungs CTAB, w/ sym exp NT ND +BS CN2-12 wnl, no fnd Normal mood, appropriate behavior No new rashes or skin breakdown noted Trachea midline without lymphadenopathy A/P: -Acute syncope, no further issues on telemetry, remains resolved. Aforementioned issue with interrogation. -Ascites-Confirm if cytology was sent with the recent para. If not can redo a diagnostic tap to obtain. SAAG, etc. to be calculated. -MSSA Bacteremia on naf -Acute on chronic diastolic heart failure; QD aldactone with PRN lasix per renal. Diuresis limited due to renal function. Optimum fluid removal would require HD at this point. -HTN; will c/w Coreg, Hydralazine, Clonidine, Aldactone, Procardia XL -Hx PPM (Per syncope) - Stage V CKD -Anemia (Stable, perameter to xf is 7) Full Code <Raji Purvis - Last Filed: 08/23/19 22:22>
[2019-08-19] MEDS: NIFEdipine E.R 60 MG TABLET (UD) PO SCH ×2 (13:06→23:16)
[2019-08-19] MEDS: CARVEDILOL 25 MG TABLET (FP) PO SCH ×2 (13:06→23:16)
[2019-08-19] MEDS: ASPIRIN COATED 81 MG TABLET.EC PO SCH (13:06)
[2019-08-19] MEDS: FOLIC ACID 1 MG TABLET (FP) PO SCH (13:06)
[2019-08-19] MEDS: ISOSORBIDE MONONITRATE 60 MG TAB.SR.24H (FP) PO SCH (13:06)
[2019-08-19] MEDS: SPIRONOLACTONE 25 MG TABLET (FP) PO SCH (13:06)
[2019-08-19] MEDS: cloNIDine HCL 0.1 MG TABLET PO SCH ×2 (13:06→23:16)
[2019-08-19] MEDS: THIAMINE HCL 100 MG TABLET (FP) PO SCH (13:07)
[2019-08-19] MEDS ORDERED: FUROSEMIDE 40 MG/4 ML INJECTABLE VIAL IVPUSH ONE (13:35)
--- NOTE | 2019-08-19 13:37 | PN ---
Progress Note, Physician History of Present Illness: Pt seen and examined at bedside. He is awake and alert. He complains of ascites. - Current Medication List Current Medications: Active Medications Aspirin (Ecotrin -) 81 mg PO DAILY [facility] Last Admin: 08/19/19 13:06 Dose: 81 mg Carvedilol (Coreg -) 25 mg PO BID [facility] Last Admin: 08/19/19 13:06 Dose: 25 mg Clonidine (Catapres -) 0.2 mg PO BID [facility] Last Admin: 08/19/19 13:06 Dose: 0.2 mg Folic Acid (Folic Acid -) 1 mg PO DAILY [facility] Last Admin: 08/19/19 13:06 Dose: 1 mg Hydralazine HCl (Apresoline -) 25 mg PO TID [facility] Last Admin: 08/19/19 05:33 Dose: Not Given Nafcillin Sodium 2 gm/ (Dextrose) 100 mls @ 200 mls/hr IVPB Q4H-IV [facility] Last Admin: 08/19/19 10:27 Dose: 200 mls/hr Isosorbide Mononitrate (Imdur -) 60 mg PO DAILY [facility] Last Admin: 08/19/19 13:06 Dose: 60 mg Metronidazole (Flagyl -) 500 mg PO TID [facility] Last Admin: 08/19/19 13:07 Dose: 500 mg Nifedipine (Procardia Xl -) 60 mg PO BID [facility] Last Admin: 08/19/19 13:06 Dose: 60 mg Spironolactone (Aldactone -) 25 mg PO DAILY [facility] Last Admin: 08/19/19 13:06 Dose: 25 mg Thiamine HCl (Vitamin B1 -) 100 mg PO DAILY [facility] Last Admin: 08/19/19 13:07 Dose: 100 mg - Objective Vital Signs: Vital Signs Temperature 97.8 F 08/19/19 09:00 Pulse Rate 62 08/19/19 13:04 Respiratory Rate 18 08/19/19 09:00 Blood Pressure 126/72 08/19/19 13:04 O2 Sat by Pulse Oximetry (%) 98 08/19/19 09:00 Constitutional: Yes: Calm Eyes: Yes: Conjunctiva Clear HENT: Yes: Atraumatic Cardiovascular: Yes: S1, S2 Respiratory: Yes: CTA Bilaterally Gastrointestinal: Yes: Ascites Genitourinary: Yes: WNL Musculoskeletal: Yes: WNL Edema: Yes Edema: LLE: 1+, RLE: 1+ Neurological: Yes: Oriented Psychiatric: Yes: Oriented Labs: CBC, BMP 08/17/19 06:00 08/17/19 06:00 INR, PTT INR 1.32 (0.83-1.09) H 08/16/19 15:47 Assessment/Plan Current Medications Generic Name Dose Route Start Last Admin Trade Name Renan PRN Reason Stop Dose Admin Aspirin 81 mg 08/17/19 10:00 08/19/19 13:06 Ecotrin - PO 81 mg DAILY [facility] Administration Carvedilol 25 mg 08/17/19 10:00 08/19/19 13:06 Coreg - PO 25 mg BID [facility] Administration Clonidine 0.2 mg 08/17/19 10:00 08/19/19 13:06 Catapres - PO 0.2 mg BID ERMIAS Administration Folic Acid 1 mg 08/17/19 10:00 08/19/19 13:06 Folic Acid - PO 1 mg DAILY [facility] Administration Furosemide 80 mg 08/19/19 13:35 Lasix Injection - IVPUSH 08/19/19 13:36 ONCE ONE Hydralazine HCl 25 mg 08/17/19 14:00 08/19/19 05:33 Apresoline - PO Not Given TID [facility] Nafcillin Sodium 2 gm/ 100 mls @ 200 mls/hr 08/16/19 20:45 08/19/19 10:27 Dextrose IVPB 200 mls/hr Q4H-IV [facility] Administration Isosorbide Mononitrate 60 mg 08/17/19 10:00 08/19/19 13:06 Imdur - PO 60 mg DAILY [facility] Administration Metronidazole 500 mg 08/17/19 14:00 08/19/19 13:07 Flagyl - PO 500 mg TID [facility] Administration Nifedipine 60 mg 08/17/19 10:00 08/19/19 13:06 Procardia Xl - PO 60 mg BID [facility] Administration Spironolactone 25 mg 08/17/19 10:00 08/19/19 13:06 Aldactone - PO 25 mg DAILY [facility] Administration Thiamine HCl 100 mg 08/17/19 10:00 08/19/19 13:07 Vitamin B1 - PO 100 mg DAILY [facility] Administration Impression 1. CKD 2. CHF 3. ascites 4. bactermia 5. htn Plan - check labs - cont lasix - gi eval for paracentsis - cont aldactone - monitor lytes - avoid nsaids - renal diet
--- NOTE | 2019-08-19 14:24 | PN ---
Progress Note (short form) - Note Progress Note: still on the nafcilliin Vital Signs Period Temp Pulse Resp BP Sys/Ibanez Pulse Ox Last 24 Hr 97.8 F 62-64 18-18 111-126/71-76 98-98 cor-rrr lungs clear abd distended +ascites ext no edema CBC, BMP 08/17/19 06:00 08/17/19 06:00 Microbiology 08/18/19 16:00 Stool Clostridioides difficile Antigen - Preliminary 08/18/19 16:00 Stool Clostridioides difficile Toxin Assay - Preliminary Current Medications Aspirin (Ecotrin -) 81 mg PO DAILY [facility] Last Admin: 08/19/19 13:06 Dose: 81 mg Carvedilol (Coreg -) 25 mg PO BID [facility] Last Admin: 08/19/19 13:06 Dose: 25 mg Clonidine (Catapres -) 0.2 mg PO BID [facility] Last Admin: 08/19/19 13:06 Dose: 0.2 mg Folic Acid (Folic Acid -) 1 mg PO DAILY [facility] Last Admin: 08/19/19 13:06 Dose: 1 mg Furosemide (Lasix Injection -) 80 mg IVPUSH ONCE ONE Stop: 08/19/19 13:36 Hydralazine HCl (Apresoline -) 25 mg PO TID [facility] Last Admin: 08/19/19 14:20 Dose: 25 mg Isosorbide Mononitrate (Imdur -) 60 mg PO DAILY [facility] Last Admin: 08/19/19 13:06 Dose: 60 mg Metronidazole (Flagyl -) 500 mg PO TID [facility] Last Admin: 08/19/19 13:07 Dose: 500 mg Nifedipine (Procardia Xl -) 60 mg PO BID [facility] Last Admin: 08/19/19 13:06 Dose: 60 mg Spironolactone (Aldactone -) 25 mg PO DAILY [facility] Last Admin: 08/19/19 13:06 Dose: 25 mg Thiamine HCl (Vitamin B1 -) 100 mg PO DAILY [facility] Last Admin: 08/19/19 13:07 Dose: 100 mg a/p per history and physical he is finishing nafcillin (mcfp) this weekend for MSSA bacteremia- no other details known- he has a picc line admitted for syncope no fevers or chills would d/c the nafcillin and repeat blood cultures in several days (72 hours after antibiotics are stopped) having a workup for ascites and syncope now d/w dr blanc why is patient on flagyl??
[2019-08-19 15:10] LABS: ALBUMIN 1.2 g/dl (3.4-5.0); ALK PHOS 57 U/L (45-117); ANION GAP 8 MMOL/L (8-16); BILIRUBIN,TOTAL 0.7 mg/dL (0.2-1); BLOOD UREA NITROGEN 40.5 mg/dL (7-18); CHLORIDE 113 mmol/L (98-107); CO2 22 mmol/L (21-32); CREATININE 5.1 mg/dL (0.55-1.3); GLUCOSE,RANDOM 124 mg/dL (74-106); POTASSIUM 3.3 mmol/L (3.5-5.1); SGOT/AST 9 U/L (15-37); SGPT/ALT < 6 U/L (13-61); SODIUM 142 mmol/L (136-145); TOT PROT 4.7 g/dl (6.4-8.2)
--- NOTE | 2019-08-19 15:11 | ECHO ---
Name: ALEKSANDRA WILKINSON Exam:Adult Echocardiogram Study Date: 08/19/2019 12:02 PM Age: 69 yrs Height: 73 in Weight: 195 lb BSA: 2.1 m2 MMode/2D Measurements & Calculations IVSd: 1.3 cm Ao root diam: 2.9 cm LVIDd: 4.2 cm LA dimension: 4.2 cm LVIDs: 2.9 cm LVPWd: 1.2 cm LVPWs: 1.8 cm EDV(Teich): 80.3 ml ESV(Teich): 32.3 ml LVOT diam: 2.1 cm LAV (MOD-bp): 56.0 ml RV S Anuj: 11.7 cm/sec Doppler Measurements & Calculations MV E max anuj: 31.1 cm/sec Ao V2 max: 142.7 cm/sec MV A max anuj: 69.6 cm/sec Ao max P.2 mmHg MV E/A: 0.45 AI P1/2t: 606.0 msec MV dec time: 0.13 sec WILLIAM(V,D): 2.5 cm2 AI max anuj: 354.2 cm/sec LV V1 max P.6 mmHg AI max P.2 mmHg LV V1 max: 107.6 cm/sec AI dec slope: 171.2 cm/sec2 PA V2 max: 106.6 cm/sec Med Peak E' Anuj: 4.1 cm/sec PA max P.5 mmHg Med E/e': 7.6 Lat Peak E' Anuj: 5.8 cm/sec Lat E/e': 5.3 Procedure A complete two-dimensional transthoracic echocardiogram was performed (2D, M-mode, Doppler and color flow Doppler). Left Ventricle The left ventricle is normal in size. There is mild concentric left ventricular hypertrophy. Left ysabel tricular systolic function is normal. Ejection Fraction = 60-65%. No regional wall motion abnormalities noted. Right Ventricle The right ventricle is normal size. There is a pacemaker lead in the right ventricle. The right ventr icular systolic function is normal. RV systolic TDI is 12 cm/s. Atria The left atrium is mildly dilated. Right atrial size is normal. Mitral Valve The mitral valve is normal in structure and function. There is mild mitral regurgitation. Tricuspid Valve The tricuspid valve is normal in structure and function. There is mild tricuspid regurgitation. Aortic Valve There is mild to moderate aortic sclerosis.;. Mild aortic regurgitation. Pulmonic Valve The pulmonic valve is not well visualized. Great Vessels The aortic root is normal size. Pericardium/Pleura Small pericardial effusion (<1cm). Interpretation Summary The left ventricle is normal in size. There is mild concentric left ventricular hypertrophy. Left ventricular systolic function is normal. No regional wall motion abnormalities noted. Ejection Fraction = 60-65%. There is a pacemaker lead in the right ventricle. The left atrium is mildly dilated. There is mild mitral regurgitation. There is mild tricuspid regurgitation. There is mild to moderate aortic sclerosis.; Mild aortic regurgitation. Small pericardial effusion (<1cm) Previous study is not available for comparison Allen Joe MD 08/19/2019 03:10 PM
[2019-08-19] MEDS ORDERED: POTASSIUM CHLORIDE TABS 20 MEQ TABLET.ER (FP) PO ONE (16:31)
[2019-08-20] MEDS: hydrALAZINE HCL 25 MG TABLET (FP) PO SCH ×3 (06:38→21:51)
--- NOTE | 2019-08-20 09:42 | PN ---
Teaching Attending Note Name of Resident: Morenita Banuelos ATTENDING PHYSICIAN STATEMENT I saw and evaluated the patient. I reviewed the resident's note and discussed the case with the resident. I agree with the resident's findings and plan as documented. SUBJECTIVE: Patient complains of abdominal pain and is asking when paracentesis will be done. OBJECTIVE: Vital Signs Period Temp Pulse Resp BP Sys/Ibanez Pulse Ox Last 24 Hr 98.1 F 60-67 18 101-126/65-78 95 HEART: S1S2, RRR LUNGS: Clear ABDOMEN: Distended, tense, diffusely tender, normal BS EXTREMITIES: Trace edema Laboratory Results - last 24 hr 08/19/19 14:26 Sodium 142 Potassium 3.3 L Chloride 113 H Carbon Dioxide 22 Anion Gap 8 BUN 40.5 H Creatinine 5.1 H Est GFR (CKD-EPI)AfAm 12.27 Est GFR (CKD-EPI)NonAf 10.59 Random Glucose 124 H Calcium 7.0 L Total Bilirubin 0.7 AST 9 L ALT < 6 L Alkaline Phosphatase 57 Total Protein 4.7 L Albumin 1.2 L Current Medications Generic Name Dose Route Start Last Admin Trade Name Freq PRN Reason Stop Dose Admin Aspirin 81 mg 08/17/19 10:00 08/19/19 13:06 Ecotrin - PO 81 mg DAILY ERMIAS Administration Carvedilol 25 mg 08/17/19 10:00 08/19/19 23:16 Coreg - PO 25 mg BID ERMIAS Administration Clonidine 0.2 mg 08/17/19 10:00 08/19/19 23:16 Catapres - PO 0.2 mg BID ERMIAS Administration Folic Acid 1 mg 08/17/19 10:00 08/19/19 13:06 Folic Acid - PO 1 mg DAILY ERMIAS Administration Hydralazine HCl 25 mg 08/17/19 14:00 08/20/19 06:38 Apresoline - PO Not Given TID ERMIAS Isosorbide Mononitrate 60 mg 08/17/19 10:00 08/19/19 13:06 Imdur - PO 60 mg DAILY ERMIAS Administration Nifedipine 60 mg 08/17/19 10:00 08/19/19 23:16 Procardia Xl - PO 60 mg BID ERMIAS Administration Pneumococcal 13-Valent Conj Vacc 0.5 ml 08/20/19 10:00 Prevnar 13 Syringe - IM 08/20/19 10:01 .ONCE ONE Spironolactone 25 mg 08/17/19 10:00 08/19/19 13:06 Aldactone - PO 25 mg DAILY ERMIAS Administration Thiamine HCl 100 mg 08/17/19 10:00 08/19/19 13:07 Vitamin B1 - PO 100 mg DAILY ERMIAS Administration ASSESSMENT AND PLAN: This is a 69 year old man with a history of HTN, stage 4 CKD, recent MSSA bacteremia treated with nafcillin, pacemaker who presented to the ED after passing out. 1. Syncope - No orthostatic hypotension - AV paced rhythm on telemetry - Plan for pacemaker interrogation 2. Ascites - Plan for paracentesis - Plavix held, hold aspirin 3. Recent MSSA bacteremia - Has PICC - Completed nafcillin - Repeat blood cultures 72 hours after discontinuing abx and if negative, can remove PICC 4. Acute diastolic heart failure - Continue Aldactone - Plan for paracentesis - Consider HD for fluid management 5. HTN - Continue Coreg, Hydralazine, Clonidine, Aldactone, Procardia XL 6. History of pacemaker 7. Stage 4 CKD - Creatinine stable 8. Anemia - Likely secondary to chronic illness/CKD - Hemoglobin stable
[2019-08-20] MEDS ORDERED: PNEUMOC 13-VAL CONJ-DIP CRM/PF 0.5 ML DISP.SYRIN IM ONE (10:00)
[2019-08-20] MEDS: ISOSORBIDE MONONITRATE 60 MG TAB.SR.24H (FP) PO SCH (10:17)
[2019-08-20] MEDS: FOLIC ACID 1 MG TABLET (FP) PO SCH (10:17)
[2019-08-20] MEDS: CARVEDILOL 25 MG TABLET (FP) PO SCH ×2 (10:17→21:51)
[2019-08-20] MEDS: SPIRONOLACTONE 25 MG TABLET (FP) PO SCH (10:17)
[2019-08-20] MEDS: ASPIRIN COATED 81 MG TABLET.EC PO SCH (10:17)
[2019-08-20] MEDS: THIAMINE HCL 100 MG TABLET (FP) PO SCH (10:18)
[2019-08-20] MEDS: NIFEdipine E.R 60 MG TABLET (UD) PO SCH ×2 (10:18→21:50)
[2019-08-20] MEDS ORDERED: PT OWN MED DRAWER 7, Y5N ONE ×2 (10:19→21:27)
[2019-08-20] MEDS: cloNIDine HCL 0.1 MG TABLET PO SCH ×2 (10:20→21:50)
--- NOTE | 2019-08-20 11:01 | PN ---
Progress Note (short form) - Note Progress Note: s: no chest pain, palps, dyspnea. complains of abd pain/swelling Current Medications Aspirin (Ecotrin -) 81 mg PO DAILY [facility] Last Admin: 08/20/19 10:17 Dose: 81 mg Carvedilol (Coreg -) 25 mg PO BID [facility] Last Admin: 08/20/19 10:17 Dose: 25 mg Clonidine (Catapres -) 0.2 mg PO BID [facility] Last Admin: 08/20/19 10:20 Dose: 0.2 mg Folic Acid (Folic Acid -) 1 mg PO DAILY [facility] Last Admin: 08/20/19 10:17 Dose: 1 mg Hydralazine HCl (Apresoline -) 25 mg PO TID [facility] Last Admin: 08/20/19 06:38 Dose: Not Given Isosorbide Mononitrate (Imdur -) 60 mg PO DAILY [facility] Last Admin: 08/20/19 10:17 Dose: 60 mg Nifedipine (Procardia Xl -) 60 mg PO BID [facility] Last Admin: 08/20/19 10:18 Dose: 60 mg Spironolactone (Aldactone -) 25 mg PO DAILY [facility] Last Admin: 08/20/19 10:17 Dose: 25 mg Thiamine HCl (Vitamin B1 -) 100 mg PO DAILY [facility] Last Admin: 08/20/19 10:18 Dose: 100 mg Vital Signs Period Temp Pulse Resp BP Sys/Ibanez Pulse Ox Last 24 Hr 98.1 F 60-67 18 101-126/65-78 95 Constitutional: Yes: Well Nourished, No Distress, Calm Cardiovascular: Yes: Regular Rate and Rhythm, S1, S2. No: JVD, Gallop, Murmur Respiratory: Yes: Regular, CTA Bilaterally. No: Accessory Muscle Use, Rales, Wheezes Extremities: No: Cold Edema: No Neurological: Yes: Alert, Oriented Psychiatric: No: Agitated no jaundice, diaphoresis Assessment/Plan echo 08/2019 nl LV/RV function, PPM lead RV, LA mildly dilated, mild MR, mild TR, mild to mod aortic sclerosis, mild AR, sm pericardial effusion tele: NSR, V-p >> V-s no definite PM malfunction (? under-sensing vs fusion beats) 69 yo AA male with CKD, HTN underlying liver disease, known PPM now s/p syncope Syncope -Unclear etiology, occurred while sitting down -Non-orthostatic here -Tele continues to show A-V pacing so far--cont tele monitoring -attempting to arrange for device interrogation, if can confirm the public administration teacher ([employer], [employer], [employer] were contacted and do not have him in their records). Implanted at [place] Acute diastolic HF; abd distention -Clinically with volume overload on exam, ++ distended abdomen--lasix per renal , ? paracentesis per GI -echo nl LV function -Has advanced CKD and has been informed in the past about possible HD, however he has refused this according to him -Will be very challenging to effectively remove fluid with lasix at this stage, would recommend readdressing possible HD if clinically appropriate HTN -bp controlled -cont outpatient antihypertensive regimen
--- NOTE | 2019-08-20 14:10 | PN ---
Progress Note, Physician History of Present Illness: Pt seen and examined at bedside. He is awake and alert. he denies shortness of breath. he complains of ascites. - Current Medication List Current Medications: Active Medications Aspirin (Ecotrin -) 81 mg PO DAILY [facility] Last Admin: 08/20/19 10:17 Dose: 81 mg Carvedilol (Coreg -) 25 mg PO BID [facility] Last Admin: 08/20/19 10:17 Dose: 25 mg Clonidine (Catapres -) 0.2 mg PO BID [facility] Last Admin: 08/20/19 10:20 Dose: 0.2 mg Folic Acid (Folic Acid -) 1 mg PO DAILY [facility] Last Admin: 08/20/19 10:17 Dose: 1 mg Hydralazine HCl (Apresoline -) 25 mg PO TID [facility] Last Admin: 08/20/19 06:38 Dose: Not Given Isosorbide Mononitrate (Imdur -) 60 mg PO DAILY [facility] Last Admin: 08/20/19 10:17 Dose: 60 mg Nifedipine (Procardia Xl -) 60 mg PO BID [facility] Last Admin: 08/20/19 10:18 Dose: 60 mg Spironolactone (Aldactone -) 25 mg PO DAILY [facility] Last Admin: 08/20/19 10:17 Dose: 25 mg Thiamine HCl (Vitamin B1 -) 100 mg PO DAILY [facility] Last Admin: 08/20/19 10:18 Dose: 100 mg - Objective Vital Signs: Vital Signs Temperature 98.9 F 08/20/19 10:00 Pulse Rate 72 08/20/19 13:49 Respiratory Rate 20 08/20/19 10:00 Blood Pressure 133/84 08/20/19 13:49 O2 Sat by Pulse Oximetry (%) 97 08/20/19 09:00 Constitutional: Yes: Calm Eyes: Yes: Conjunctiva Clear HENT: Yes: Atraumatic Cardiovascular: Yes: S1, S2 Respiratory: Yes: CTA Bilaterally Gastrointestinal: Yes: Ascites Genitourinary: Yes: WNL Musculoskeletal: Yes: WNL Edema: Yes Edema: LLE: 1+, RLE: 1+ Neurological: Yes: Oriented Psychiatric: Yes: Oriented Labs: CBC, BMP 08/17/19 06:00 08/19/19 14:26 INR, PTT INR 1.32 (0.83-1.09) H 08/16/19 15:47 Assessment/Plan Current Medications Generic Name Dose Route Start Last Admin Trade Name Renan PRN Reason Stop Dose Admin Aspirin 81 mg 08/17/19 10:00 08/20/19 10:17 Ecotrin - PO 81 mg DAILY ERMIAS Administration Carvedilol 25 mg 08/17/19 10:00 08/20/19 10:17 Coreg - PO 25 mg BID ERMIAS Administration Clonidine 0.2 mg 08/17/19 10:00 08/20/19 10:20 Catapres - PO 0.2 mg BID ERMIAS Administration Folic Acid 1 mg 08/17/19 10:00 08/20/19 10:17 Folic Acid - PO 1 mg DAILY ERMIAS Administration Hydralazine HCl 25 mg 08/17/19 14:00 08/20/19 06:38 Apresoline - PO Not Given TID ERMIAS Isosorbide Mononitrate 60 mg 08/17/19 10:00 08/20/19 10:17 Imdur - PO 60 mg DAILY ERMIAS Administration Nifedipine 60 mg 08/17/19 10:00 08/20/19 10:18 Procardia Xl - PO 60 mg BID ERMIAS Administration Spironolactone 25 mg 08/17/19 10:00 08/20/19 10:17 Aldactone - PO 25 mg DAILY ERMIAS Administration Thiamine HCl 100 mg 08/17/19 10:00 08/20/19 10:18 Vitamin B1 - PO 100 mg DAILY ERMIAS Administration Impression 1. CKD 2. CHF 3. ascites 4. bactermia 5. htn Plan - check labs - discussed HD with pt - pt asking for paracentesis - called GI, they recommend IR - plavix on hold - cont aldactone - monitor lytes - avoid nsaids - renal diet
[2019-08-20] MEDS ORDERED: FUROSEMIDE 40 MG/4 ML INJECTABLE VIAL IVPUSH ONE (14:12)
[2019-08-20] MEDS ORDERED: POTASSIUM CHLORIDE TABS 20 MEQ TABLET.ER (FP) PO ONE ×3 (15:00→18:04)
--- NOTE | 2019-08-20 15:02 | PN ---
Progress Note (short form) - Note Progress Note: Hospitalist Medicine Pt continues to c/o abdominal discomfort 2/2 distension. This AM, was refusing vitals, medications, monitoring. "I will do what I want when I want." Currently resting in bed and now compliant. Vitals 08/20/19 08/20/19 10:00 13:49 Temperature 98.9 F Pulse Rate 72 Respiratory 20 Rate Blood Pressure 133/84 Physical Exam general: resting in bed. HEENT: NCAT, PERRLA neck: supple cardio: +paced rhythm appreciated. no r/m/g pulm: CTA b/l however limited 2/2 abd discomfort from distension. abdomen: obese, distended, fluid wave appreciated. LE: 2+ pulses. trace edema appreciated neuro: getter operator 2-12 grossly intact. able to move UE, LE freely. sensation intact Laboratory Tests (none today as pt refused) Microbiology 08/18/19 16:00 Stool Clostridioides difficile Antigen - Final 08/18/19 16:00 Stool Clostridioides difficile Toxin Assay - Final Assessment/plan 69 y/o M with PMH HTN, CKD4, recent MSSA bacteremia on nafcillin, PPM, ascites, who presented for suspected syncopal event. Pt currently evaluated for syncopal event etiology as well as ascites mgmt. #Syncopal event -ECHO without acute abnormality; 60-65% EF, LA mild dilation, mild MR, TR mild-moderate , small pericardial effusion -PVCs noted on tele -cardio interrogating PPM -pt refused carotid duplex "I don't need it" #Ascites -plavix held 08/17 (4 days), asa is held -will go for paracentesis tomorrow with IR (08/21) -refused CTAP -GI: Dr. Paula #Recent MSSA bacteremia w/ PICC line -nafcillin has been d/c -will repeat blood cx 72 hrs (08/22) if negative, will d/c PICC line by IR -ID: Dr. Panchal #Elevated BNP -ECHO done; result above -may need HD given CKD; may be difficult to remove fluid via lasix per cardio, pt has refused HD previously -currently would prefer paracentesis -due for thoracentesis as well #HTN- controlled hx PPM -c/w hydralazine, clonidine -c/w imdur, coreg -c/w procardia -Cardio on board: Dr. Osorio #CKD4 -f/u renal, bladder sono #hx flagyl abx -has been d/c -d/w facility; was on d/t suspicion for c. diff however tested (-) x 2 (-) at our facility, will d/c #F/E/N not on ivf continue to follow lytes renal diet #ppx DVT: SCD's #Dispo for paracentesis and thoracentesis tomorrow will repeat blood cx 72 hrs (08/22) if negative, will d/c PICC line by IR
[2019-08-20 16:42] LABS: ALBUMIN 1.3 g/dl (3.4-5.0); ALK PHOS 62 U/L (45-117); ANION GAP 10 MMOL/L (8-16); BILIRUBIN,TOTAL 0.6 mg/dL (0.2-1); BLOOD UREA NITROGEN 40.6 mg/dL (7-18); CALCIUM 7.7 mg/dL (8.5-10.1); CHLORIDE 114 mmol/L (98-107); CO2 19 mmol/L (21-32); CREATININE 5.1 mg/dL (0.55-1.3); GLUCOSE,RANDOM 92 mg/dL (74-106); POTASSIUM 3.4 mmol/L (3.5-5.1); SGOT/AST 8 U/L (15-37); SGPT/ALT < 6 U/L (13-61); SODIUM 144 mmol/L (136-145); TOT PROT 4.9 g/dl (6.4-8.2)
--- NOTE | 2019-08-20 19:30 | PN.GI ---
GI Progress Note Subjective: patient has ascitis, s/p paracentsis at [facility],[place] alcohol use - Objective Vital Signs: Vital Signs Temperature 98.9 F 08/20/19 10:00 Pulse Rate 72 08/20/19 13:49 Respiratory Rate 20 08/20/19 10:00 Blood Pressure 133/84 08/20/19 13:49 O2 Sat by Pulse Oximetry (%) 97 08/20/19 09:00 Constitutional: No Distress Eyes: Yes: Conjunctiva Clear HENT: Yes: Atraumatic Neck: Yes: Supple Cardiovascular: Yes: Regular Rate and Rhythm Respiratory: Yes: CTA Bilaterally Gastrointestinal Inspection: Yes: Ascites, Distention ...Palpate: Yes: Soft. No: Firm/Rigid, Guarding, Hepatomegaly, Mass, Pulsatile Mass, Splenomegaly, Tenderness Labs: CBC, BMP 08/17/19 06:00 08/20/19 15:35 INR, PTT INR 1.32 (0.83-1.09) H 08/16/19 15:47 Hepatic Panel Total Bilirubin 0.6 mg/dL (0.2-1) 08/20/19 15:35 AST 8 U/L (15-37) L 08/20/19 15:35 ALT < 6 U/L (13-61) L 08/20/19 15:35 Alkaline Phosphatase 62 U/L (45-117) 08/20/19 15:35 Albumin 1.3 g/dl (3.4-5.0) L 08/20/19 15:35 Home Medications Medication Instructions Recorded Aspirin [Adult Aspirin Regimen] 81 mg PO DAILY 08/16/19 Carvedilol [Coreg -] 25 mg PO BID 08/16/19 Clonidine HCl 0.2 mg PO [id number] 08/16/19 Clopidogrel Bisulfate [Plavix] 75 mg PO DAILY 08/16/19 Folic Acid 1 mg PO DAILY 08/16/19 Hydralazine HCl 25 mg PO TID 08/16/19 Isosorbide Mononitrate [Isosorbide 60 mg PO DAILY 08/16/19 Mononitrate ER] Nafcillin in Dextrose,Iso-Osm 2 gm IV Q4H 08/16/19 [Nafcillin 2 gm/ 100 ml Inj] Nifedipine ER [Procardia Xl -] 60 mg PO BID 08/16/19 Spironolactone 25 mg PO DAILY 08/16/19 Thiamine HCl [B-1] 100 mg PO DAILY 08/16/19 metroNIDAZOLE [Flagyl -] 500 mg PO TID 08/16/19 Problem List - Problems (1) Ascites Assessment/Plan: r/o secondary to right sided heart failur , malignancy doubt liver cirrhosi R> for diagnostic and therapeutic paracentesis total protein,wbc count and diff s Code(s): R18.8 - OTHER ASCITES
[2019-08-21] MEDS: hydrALAZINE HCL 25 MG TABLET (FP) PO SCH ×3 (06:33→21:52)
[2019-08-21 09:27] LABS: BASO % 1.1 % (0-2.0); EOS % 9.6 % (0-4.5); HEMATOCRIT 25.9 % (35.4-49); HEMOGLOBIN 8.7 GM/dL (11.7-16.9); LYMPH % 15.2 % (8-40); MCH 29.9 pg (25.7-33.7); MCHC 33.8 g/dl (32.0-35.9); MEAN CELL VOLUME 88.5 fl (80-96); MEAN PLT VOLUME 6.8 fl (7.5-11.1); NEUT % 65.1 % (42.8-82.8); PLATELET COUNT 562 K/MM3 (134-434); RBC 2.93 M/mm3 (4.00-5.60); RDW 17.1 % (11.9-15.9); WHITE BLOOD COUNT 6.9 K/mm3 (4.0-10.0)
[2019-08-21 09:49] LABS: INR 1.3 (0.83-1.09); PROTHROMBIN TIME (PATIENT) 15.4 SEC (9.7-13.0)
[2019-08-21 09:51] LABS: ACTIVATED PTT 48.2 SECONDS (25.2-36.5)
[2019-08-21 10:07] LABS: ALBUMIN 1.4 g/dl (3.4-5.0); ALK PHOS 64 U/L (45-117); ANION GAP 9 MMOL/L (8-16); BILIRUBIN,TOTAL 0.7 mg/dL (0.2-1); BLOOD UREA NITROGEN 42.8 mg/dL (7-18); CALCIUM 7.7 mg/dL (8.5-10.1); CHLORIDE 114 mmol/L (98-107); CO2 19 mmol/L (21-32); CREATININE 4.9 mg/dL (0.55-1.3); GLUCOSE,RANDOM 86 mg/dL (74-106); POTASSIUM 3.4 mmol/L (3.5-5.1); SGOT/AST 7 U/L (15-37); SGPT/ALT < 6 U/L (13-61); SODIUM 142 mmol/L (136-145); TOT PROT 5.3 g/dl (6.4-8.2)
--- NOTE | 2019-08-21 11:40 | PN ---
Progress Note (short form) - Note Progress Note: s: complains of abd pain. no chest pain, palps, dyspnea. Current Medications Carvedilol (Coreg -) 25 mg PO BID [facility] Last Admin: 08/20/19 21:51 Dose: 25 mg Clonidine (Catapres -) 0.2 mg PO BID [facility] Last Admin: 08/20/19 21:50 Dose: 0.2 mg Folic Acid (Folic Acid -) 1 mg PO DAILY [facility] Last Admin: 08/20/19 10:17 Dose: 1 mg Hydralazine HCl (Apresoline -) 25 mg PO TID [facility] Last Admin: 08/21/19 06:33 Dose: 25 mg Isosorbide Mononitrate (Imdur -) 60 mg PO DAILY [facility] Last Admin: 08/20/19 10:17 Dose: 60 mg Nifedipine (Procardia Xl -) 60 mg PO BID [facility] Last Admin: 08/20/19 21:50 Dose: 60 mg Spironolactone (Aldactone -) 25 mg PO DAILY [facility] Last Admin: 08/20/19 10:17 Dose: 25 mg Thiamine HCl (Vitamin B1 -) 100 mg PO DAILY [facility] Last Admin: 08/20/19 10:18 Dose: 100 mg Vital Signs Period Temp Pulse Resp BP Sys/Ibanez Pulse Ox Last 24 Hr 98.5 F-98.8 F 70-81 20-20 122-141/74-91 96 Constitutional: Yes: Well Nourished, No Distress, Calm Cardiovascular: Yes: Regular Rate and Rhythm, S1, S2. No: JVD, Gallop, Murmur Respiratory: Yes: Regular, CTA Bilaterally. No: Accessory Muscle Use, Rales, Wheezes Extremities: No: Cold Edema: No Neurological: Yes: Alert, Oriented Psychiatric: No: Agitated no jaundice, diaphoresis Assessment/Plan echo 08/2019 nl LV/RV function, PPM lead RV, LA mildly dilated, mild MR, mild TR, mild to mod aortic sclerosis, mild AR, sm pericardial effusion tele: NSR, V-p >> V-s no definite PM malfunction (? under-sensing vs fusion beats) 69 yo AA male with CKD, HTN underlying liver disease, known PPM now s/p syncope Syncope -Unclear etiology, occurred while sitting down -Non-orthostatic here -Tele continues to show A-V pacing so far--cont tele monitoring -attempting to arrange for device interrogation, if can confirm the costumed character ([employer], [employer], [employer] and [employer] were contacted and do not have him in their records). Implanted at [place] - have been unable to obtain records Acute diastolic HF; abd distention -Clinically with volume overload on exam, ++ distended abdomen--lasix per renal - planned paracentesis per GI - plavix held - patient does not know why he is on plavix - denies hx of cardiac or peripheral stents -echo nl LV function -Has advanced CKD and has been informed in the past about possible HD, however he has refused this -Will be very challenging to effectively remove fluid with lasix at this stage, would recommend readdressing possible HD if clinically appropriate HTN -bp controlled -cont outpatient antihypertensive regimen
[2019-08-21] MEDS ORDERED: PT OWN MED DRAWER 7, Y5N ONE ×2 (11:45→21:49)
[2019-08-21] MEDS: FOLIC ACID 1 MG TABLET (FP) PO SCH (11:46)
[2019-08-21] MEDS: NIFEdipine E.R 60 MG TABLET (UD) PO SCH ×2 (11:47→21:53)
[2019-08-21] MEDS: SPIRONOLACTONE 25 MG TABLET (FP) PO SCH (11:47)
[2019-08-21] MEDS: CARVEDILOL 25 MG TABLET (FP) PO SCH ×2 (11:47→21:53)
[2019-08-21] MEDS: cloNIDine HCL 0.1 MG TABLET PO SCH ×2 (11:47→21:53)
[2019-08-21] MEDS: ISOSORBIDE MONONITRATE 60 MG TAB.SR.24H (FP) PO SCH (11:47)
[2019-08-21] MEDS: THIAMINE HCL 100 MG TABLET (FP) PO SCH (11:48)
[2019-08-21] MEDS ORDERED: POTASSIUM CHLORIDE TABS 20 MEQ TABLET.ER (FP) PO ONE (13:12)
[2019-08-21] MEDS ORDERED: FUROSEMIDE 40 MG/4 ML INJECTABLE VIAL IVPUSH ONE (13:15)
--- NOTE | 2019-08-21 13:15 | PN ---
Progress Note, Physician History of Present Illness: Pt seen and examined at bedside. He is awake and alert. He denies shortness of breath. - Current Medication List Current Medications: Active Medications Carvedilol (Coreg -) 25 mg PO BID [facility] Last Admin: 08/21/19 11:47 Dose: 25 mg Clonidine (Catapres -) 0.2 mg PO BID [facility] Last Admin: 08/21/19 11:47 Dose: 0.2 mg Folic Acid (Folic Acid -) 1 mg PO DAILY [facility] Last Admin: 08/21/19 11:46 Dose: 1 mg Hydralazine HCl (Apresoline -) 25 mg PO TID [facility] Last Admin: 08/21/19 06:33 Dose: 25 mg Isosorbide Mononitrate (Imdur -) 60 mg PO DAILY [facility] Last Admin: 08/21/19 11:47 Dose: 60 mg Nifedipine (Procardia Xl -) 60 mg PO BID [facility] Last Admin: 08/21/19 11:47 Dose: 60 mg Spironolactone (Aldactone -) 25 mg PO DAILY [facility] Last Admin: 08/21/19 11:47 Dose: 25 mg Thiamine HCl (Vitamin B1 -) 100 mg PO DAILY [facility] Last Admin: 08/21/19 11:48 Dose: 100 mg - Objective Vital Signs: Vital Signs Temperature 98.5 F 08/21/19 06:00 Pulse Rate 81 08/21/19 10:00 Respiratory Rate 20 08/21/19 10:00 Blood Pressure 140/91 08/21/19 10:00 O2 Sat by Pulse Oximetry (%) 96 08/20/19 21:00 Constitutional: Yes: Calm Eyes: Yes: Conjunctiva Clear HENT: Yes: Atraumatic Neck: Yes: Supple Cardiovascular: Yes: S1, S2 Respiratory: Yes: CTA Bilaterally Gastrointestinal: Yes: Ascites Genitourinary: Yes: WNL Musculoskeletal: Yes: WNL Edema: Yes Neurological: Yes: Oriented Psychiatric: Yes: Oriented Labs: CBC, BMP 08/21/19 09:10 08/21/19 09:10 INR, PTT INR 1.30 (0.83-1.09) H 08/21/19 09:10 Assessment/Plan Current Medications Generic Name Dose Route Start Last Admin Trade Name Freq PRN Reason Stop Dose Admin Carvedilol 25 mg 08/17/19 10:00 08/21/19 11:47 Coreg - PO 25 mg BID ERMIAS Administration Clonidine 0.2 mg 08/17/19 10:00 08/21/19 11:47 Catapres - PO 0.2 mg BID ERMIAS Administration Folic Acid 1 mg 08/17/19 10:00 08/21/19 11:46 Folic Acid - PO 1 mg DAILY ERMIAS Administration Hydralazine HCl 25 mg 08/17/19 14:00 08/21/19 06:33 Apresoline - PO 25 mg TID ERMIAS Administration Isosorbide Mononitrate 60 mg 08/17/19 10:00 08/21/19 11:47 Imdur - PO 60 mg DAILY ERMIAS Administration Nifedipine 60 mg 08/17/19 10:00 08/21/19 11:47 Procardia Xl - PO 60 mg BID ERMIAS Administration Potassium Chloride 40 meq 08/21/19 13:12 K-Dur - PO 08/21/19 13:13 ONCE ONE Spironolactone 25 mg 08/17/19 10:00 08/21/19 11:47 Aldactone - PO 25 mg DAILY ERMIAS Administration Thiamine HCl 100 mg 08/17/19 10:00 08/21/19 11:48 Vitamin B1 - PO 100 mg DAILY ERMIAS Administration Impression 1. CKD 2. CHF 3. ascites 4. bactermia 5. htn Plan - replace potassium - cont with lasix - paracentesis when possible - discussed with pts daughter, he will be moving to [place] in a few weeks. Pt has an appointment with a financial advocate down there. Pt and family are aware of kidney disease - plavix on hold - cont aldactone - monitor lytes - avoid nsaids - renal diet
--- NOTE | 2019-08-21 17:01 | PN ---
Progress Note (short form) - Note Progress Note: Hospitalist Medicine This AM, with c/o abdominal discomfort and distension. Currently s/p paracentesis. Vitals 08/21/19 14:00 Pulse Rate 86 Respiratory 20 Rate Blood Pressure 117/88 Physical Exam general: resting in bed. in NAD HEENT: NCAT, PERRLA neck: supple cardio: +paced rhythm appreciated. no r/m/g pulm: CTA b/l , limited 2/2 abdom distension this AM abdomen: obese, distended, fluid wave appreciated. LE: 2+ pt pulses. trace edema appreciated neuro: macadam raker 2-12 grossly intact. able to move UE, LE would not participate in full exam Laboratory Tests 08/21/19 08/21/19 08/21/19 09:10 09:10 09:10 WBC 6.9 Hgb 8.7 L Hct 25.9 L Plt Count 562 H PT with INR 15.40 H INR 1.30 H PTT (Actin FS) 48.2 H Potassium 3.4 L Chloride 114 H Carbon Dioxide 19 L Creatinine 4.9 H Fluid Source POC Fluid pH Fluid RBC Fluid Neutrophils Fluid Glucose Fluid Total Protein Fluid Albumin Body Fluid LDH Source Fluid Amylase Fluid Triglycerides 08/21/19 08/21/19 15:30 15:30 PTT (Actin FS) Carbon Dioxide Creatinine Fluid Source Abdominal fluid POC Fluid pH Pending Fluid RBC Pending Fluid Neutrophils Pending Fluid Glucose Pending Fluid Total Protein Pending Fluid Albumin Pending Body Fluid LDH Source Pending Fluid Amylase Pending Fluid Triglycerides Pending Microbiology 08/18/19 16:00 Stool Clostridioides difficile Antigen - Final 08/18/19 16:00 Stool Clostridioides difficile Toxin Assay - Final 08/19/19 11:05 Blood - Peripheral Venous Blood Culture - Preliminary NO GROWTH OBTAINED AFTER 48 HOURS, INCUBATION TO CONTINUE FOR 3 DAYS. 08/19/19 10:50 Blood - Peripheral Venous Blood Culture - Preliminary NO GROWTH OBTAINED AFTER 48 HOURS, INCUBATION TO CONTINUE FOR 3 DAYS. Assessment/plan 69 y/o M with PMH HTN, CKD4, recent MSSA bacteremia on nafcillin, PPM, ascites, who presented for suspected syncopal event. Pt currently evaluated for syncopal event etiology as well as ascites mgmt. #Syncopal event -ECHO without acute abnormality; 60-65% EF, LA mild dilation, mild MR, TR mild-moderate , small pericardial effusion -PVCs noted on tele -cardio interrogating PPM -pt refused carotid duplex "I don't need it" #Ascites -plavix held 08/17 (5 days), asa is held -s/p paracentesis with IR (08/21) -f/u para studies, culture -refused CTAP -GI: Dr. Kirby #Recent MSSA bacteremia w/ PICC line -nafcillin has been d/c -will repeat blood cx 72 hrs - tomorrow (08/22) if negative, will d/c PICC line by IR -ID: Dr. Panchal #Elevated BNP -ECHO done; result above -may need HD given CKD; may be difficult to remove fluid via lasix per cardio, pt has refused HD previously #HTN- controlled hx PPM -c/w hydralazine, clonidine -c/w imdur, coreg -c/w procardia -asa and plavix are still held -Cardio on board: Dr. Osorio #CKD4 -f/u renal, bladder sono #hx flagyl abx -has been d/c -d/w facility; was on d/t suspicion for c. diff however tested (-) x 2 (-) at our facility, will d/c #F/E/N not on ivf continue to follow lytes renal diet #ppx DVT: SCD's #Dispo s/p paracentesis today cont'd monitoring will repeat blood cx tomorrow (08/22) if negative, will d/c PICC line by IR
[2019-08-21 17:36] LABS: BF WBC & OTHER NUCLEATED CELLS 111 /mm3
[2019-08-21 17:56] LABS: BODY FLUID MACROPHAGES 67 %; BODY FLUID MONOCYTE 14 %
--- NOTE | 2019-08-21 18:13 | PN ---
Teaching Attending Note Name of Resident: Morenita Banuelos ATTENDING PHYSICIAN STATEMENT I saw and evaluated the patient. I reviewed the resident's note and discussed the case with the resident. I agree with the resident's findings and plan as documented. SUBJECTIVE: Patient feels less abdominal discomfort since paracentesis done. OBJECTIVE: Vital Signs Period Temp Pulse Resp BP Sys/Ibanez Pulse Ox Last 24 Hr 98.5 F-98.7 F 70-86 20-20 117-141/74-91 96-97 HEART: S1S2, RRR LUNGS: Clear ABDOMEN: Distended, soft, mild diffuse tenderness, normal BS EXTREMITIES: Trace edema Laboratory Results - last 24 hr 08/21/19 08/21/19 08/21/19 09:10 09:10 09:10 WBC 6.9 RBC 2.93 L Hgb 8.7 L Hct 25.9 L MCV 88.5 MCH 29.9 MCHC 33.8 RDW 17.1 H Plt Count 562 H MPV 6.8 L Absolute Neuts (auto) 4.5 Neutrophils % 65.1 Lymphocytes % 15.2 Monocytes % 9.0 Eosinophils % 9.6 H Basophils % 1.1 Nucleated RBC % 0 PT with INR 15.40 H INR 1.30 H PTT (Actin FS) 48.2 H Sodium 142 Potassium 3.4 L Chloride 114 H Carbon Dioxide 19 L Anion Gap 9 BUN 42.8 H Creatinine 4.9 H Est GFR (CKD-EPI)AfAm 12.88 Est GFR (CKD-EPI)NonAf 11.11 Random Glucose 86 Calcium 7.7 L Total Bilirubin 0.7 AST 7 L ALT < 6 L Alkaline Phosphatase 64 Total Protein 5.3 L Albumin 1.4 L Fluid Source Fluid WBC Fluid RBC Fluid Neutrophils Fluid Lymphocytes Pleural Monocytes Pleural Macrophages 08/21/19 15:30 WBC RBC Hgb Hct MCV MCH MCHC RDW Plt Count MPV Absolute Neuts (auto) Neutrophils % Lymphocytes % Monocytes % Eosinophils % Basophils % Nucleated RBC % PT with INR INR PTT (Actin FS) Sodium Potassium Chloride Carbon Dioxide Anion Gap BUN Creatinine Est GFR (CKD-EPI)AfAm Est GFR (CKD-EPI)NonAf Random Glucose Calcium Total Bilirubin AST ALT Alkaline Phosphatase Total Protein Albumin Fluid Source Abdominal fluid Fluid WBC 111 Fluid RBC 364 Fluid Neutrophils 8 Fluid Lymphocytes 11 Pleural Monocytes 14 Pleural Macrophages 67 Current Medications Generic Name Dose Route Start Last Admin Trade Name Freq PRN Reason Stop Dose Admin Carvedilol 25 mg 08/17/19 10:00 08/21/19 11:47 Coreg - PO 25 mg BID REMIAS Administration Clonidine 0.2 mg 08/17/19 10:00 08/21/19 11:47 Catapres - PO 0.2 mg BID ERMIAS Administration Folic Acid 1 mg 08/17/19 10:00 08/21/19 11:46 Folic Acid - PO 1 mg DAILY ERMIAS Administration Hydralazine HCl 25 mg 08/17/19 14:00 08/21/19 13:39 Apresoline - PO 25 mg TID ERMIAS Administration Isosorbide Mononitrate 60 mg 08/17/19 10:00 08/21/19 11:47 Imdur - PO 60 mg DAILY ERMIAS Administration Nifedipine 60 mg 08/17/19 10:00 08/21/19 11:47 Procardia Xl - PO 60 mg BID ERMIAS Administration Spironolactone 25 mg 08/17/19 10:00 08/21/19 11:47 Aldactone - PO 25 mg DAILY ERMIAS Administration Thiamine HCl 100 mg 08/17/19 10:00 08/21/19 11:48 Vitamin B1 - PO 100 mg DAILY ERMIAS Administration ASSESSMENT AND PLAN: This is a 69 year old man with a history of HTN, stage 4 CKD, recent MSSA bacteremia treated with nafcillin, pacemaker who presented to the ED after passing out. 1. Syncope - No orthostatic hypotension - AV paced rhythm on telemetry - Plan for pacemaker interrogation 2. Ascites - s/p paracentesis today - follow up fluid studies, culture, cytology 3. Recent MSSA bacteremia - Has PICC - Completed nafcillin - Repeat blood cultures 72 hours after discontinuing abx and if negative, can remove PICC 4. Acute diastolic heart failure - Continue Aldactone - Lasix as per renal 5. HTN - Continue Coreg, Hydralazine, Clonidine, Aldactone, Procardia XL 6. History of pacemaker 7. Stage 4 CKD - Creatinine stable 8. Anemia - Likely secondary to chronic illness/CKD - Hemoglobin stable
[2019-08-22] MEDS: hydrALAZINE HCL 25 MG TABLET (FP) PO SCH ×3 (06:38→21:49)
[2019-08-22] MEDS: cloNIDine HCL 0.1 MG TABLET PO SCH ×2 (10:48→21:49)
[2019-08-22] MEDS: ISOSORBIDE MONONITRATE 60 MG TAB.SR.24H (FP) PO SCH (10:49)
[2019-08-22] MEDS: SPIRONOLACTONE 25 MG TABLET (FP) PO SCH (10:49)
[2019-08-22] MEDS: THIAMINE HCL 100 MG TABLET (FP) PO SCH (10:49)
[2019-08-22] MEDS: CARVEDILOL 25 MG TABLET (FP) PO SCH ×2 (10:49→21:49)
[2019-08-22] MEDS: FOLIC ACID 1 MG TABLET (FP) PO SCH (10:49)
[2019-08-22] MEDS: NIFEdipine E.R 60 MG TABLET (UD) PO SCH ×2 (10:49→21:49)
--- NOTE | 2019-08-22 11:40 | PN ---
Progress Note (short form) - Note Progress Note: s: no chest pain, palps, dyspnea dizzy Current Medications Generic Name Dose Route Start Last Admin Trade Name Renan PRN Reason Stop Dose Admin Carvedilol 25 mg 08/17/19 10:00 08/22/19 10:49 Coreg - PO 25 mg BID ERMIAS Administration Clonidine 0.2 mg 08/17/19 10:00 08/22/19 10:48 Catapres - PO 0.2 mg BID ERMIAS Administration Folic Acid 1 mg 08/17/19 10:00 08/22/19 10:49 Folic Acid - PO 1 mg DAILY ERMIAS Administration Hydralazine HCl 25 mg 08/17/19 14:00 08/22/19 06:38 Apresoline - PO Not Given TID ERMIAS Isosorbide Mononitrate 60 mg 08/17/19 10:00 08/22/19 10:49 Imdur - PO 60 mg DAILY ERMIAS Administration Nifedipine 60 mg 08/17/19 10:00 08/22/19 10:49 Procardia Xl - PO 60 mg BID ERMIAS Administration Spironolactone 25 mg 08/17/19 10:00 08/22/19 10:49 Aldactone - PO 25 mg DAILY ERMIAS Administration Thiamine HCl 100 mg 08/17/19 10:00 08/22/19 10:49 Vitamin B1 - PO 100 mg DAILY ERMIAS Administration Vital Signs Period Temp Pulse Resp BP Sys/Ibanez Pulse Ox Last 24 Hr 98.0 F-98.6 F 66-86 18-20 117-134/67-88 96-97 Constitutional: Yes: Well Nourished, No Distress, Calm Cardiovascular: Yes: Regular Rate and Rhythm, S1, S2. No: JVD, Gallop, Murmur Respiratory: Yes: Regular, CTA Bilaterally. No: Accessory Muscle Use, Rales, Wheezes Extremities: No: Cold Edema: No Neurological: Yes: Alert, Oriented Psychiatric: No: Agitated no jaundice, diaphoresis CBC, BMP 08/21/19 09:10 08/21/19 09:10 Assessment/Plan echo 08/2019 nl LV/RV function, PPM lead RV, LA mildly dilated, mild MR, mild TR, mild to mod aortic sclerosis, mild AR, sm pericardial effusion tele: SR, svp/ap, as/svp 69 yo AA male with CKD, HTN underlying liver disease, known PPM now s/p syncope Syncope -Unclear etiology, occurred while sitting down -Non-orthostatic here -Tele continues to show nl pacer fcn -attempted to arrange for device interrogation, if can confirm 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 Implanted at [facility] - have been unable to obtain records Acute diastolic HF; abd distention -Clinically with volume overload on exam, ++ distended abdomen--lasix per renal - planned paracentesis per GI - plavix held - patient does not know why he is on plavix - denies hx of cardiac or peripheral stents -echo nl LV function -Has advanced CKD and has been informed in the past about possible HD, however he has refused this -Will be very challenging to effectively remove fluid with lasix at this stage, would recommend readdressing possible HD if clinically appropriate HTN -bp controlled -cont outpatient antihypertensive regimen
--- NOTE | 2019-08-22 11:41 | PN ---
Progress Note (short form) - Note Progress Note: Hospitalist Medicine Content this AM; s/p paracentesis yesterday. No longer distended. Still with RUE PICC line. Will f/u today's blood cx. If (-) will have IR d/c PICC. Vitals 08/22/19 09:00 Temperature 98.3 F Pulse Rate 66 Respiratory 18 Rate Blood Pressure 134/77 Physical Exam general: sitting up in bed. in NAD HEENT: NCAT, PERRLA neck: supple cardio: +paced rhythm appreciated. no r/m/g pulm: CTA b/l . no accessory m usage abdomen: obese, soft. non distended . no guarding, or rigidity LE: 2+ pt pulses. 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 would not participate in full neuro exam. gait not assessed. Last Laboratory Tests (refused labs today) 08/21/19 08/21/19 15:30 15:30 PTT (Actin FS) Carbon Dioxide Creatinine Fluid Source Abdominal fluid POC Fluid pH Pending Fluid RBC Pending Fluid Neutrophils Pending Fluid Glucose Pending Fluid Total Protein Pending Fluid Albumin Pending Body Fluid LDH Source Pending Fluid Amylase Pending Fluid Triglycerides Pending Microbiology 08/18/19 16:00 Stool Clostridioides difficile Antigen - Final 08/18/19 16:00 Stool Clostridioides difficile Toxin Assay - Final 08/21/19 15:30 Abdomen ELIER Preparation - Preliminary 08/21/19 15:30 Abdomen Fungal Culture - Preliminary 08/21/19 15:30 Abdomen AFB Smear Concentration - Preliminary 08/21/19 15:30 Abdomen Mycobacterial Culture - Preliminary 08/19/19 11:05 Blood - Peripheral Venous Blood Culture - Preliminary NO GROWTH OBTAINED AFTER 72 HOURS, INCUBATION TO CONTINUE FOR 2 DAYS. 08/19/19 10:50 Blood - Peripheral Venous Blood Culture - Preliminary NO GROWTH OBTAINED AFTER 72 HOURS, INCUBATION TO CONTINUE FOR 2 DAYS. Assessment/plan 69 y/o M with PMH HTN, CKD4, recent MSSA bacteremia on nafcillin, PPM, ascites, who presented for suspected syncopal event. Pt currently evaluated for syncopal event etiology as well as ascites mgmt. #Syncopal event -ECHO without acute abnormality; 60-65% EF, LA mild dilation, mild MR, TR mild-moderate , small pericardial effusion -PVCs noted on tele -cardio interrogating PPM -pt refused carotid duplex "I don't need it" #Ascites -plavix held since 08/17, asa is held. will d/w IR whether can restart -s/p dx and therapeutic paracentesis with IR (08/21) -f/u para studies, culture - pending -refused CTAP -GI: Dr. Kirby #Recent MSSA bacteremia w/ PICC line -nafcillin has been d/c -repeat blood cx 72 hrs - (08/22) if negative, will d/c PICC line -ID: Dr. Panchal #Elevated BNP -ECHO done; result above -may need HD given CKD; may be difficult to remove fluid via lasix per cardio, pt has refused HD previously #HTN- controlled hx PPM -c/w hydralazine, clonidine -c/w imdur, coreg -c/w procardia -asa and plavix are still held -Cardio on board: Dr. Osorio #CKD4 -f/u renal, bladder sono #hx flagyl abx -has been d/c -d/w facility; was on d/t suspicion for c. diff however tested (-) x 2 (-) at our facility, will d/c #F/E/N not on ivf continue to follow lytes renal diet #ppx DVT: SCD's #Dispo cont'd monitoring will f/u repeat blood cx if negative, will d/c PICC line by IR will follow GI plan once tap results returned <Morenita Banuelos - Last Filed: 08/22/19 11:45> - Note Progress Note: Seen and examined; agree with above aside from as supplemented. All omalley historical and PE information alongside labs, imaging, and diagnostics reviewed. Discussed at length with resident team and indicated consultants. Overall he remains averse to in depth conversation regarding his condition. 10 sys ROS done and negative aside from HPI VS labs imaging reviewed NAD, AAO, resting in bed HR wnl, s1/2+ NT ND +BS CN2-12 wnl, no fnd Terse mood, flat affect, retains cognition. A/P: Patient presents with fluid overload secondary to diastolic CHF and CKD-V that is likely going to require HD in the future if patient wants to continue to to maintain function as it stants. He is being diuresed with aldactone and QD evaluation for lasix admin by nephrology consult. Problems include: -Acute syncope, no further issues on telemetry, remains resolved. Aforementioned issue with interrogation. Further management per CV. Followup lytes. Discuss with HCP regarding prior medicals. -Ascites-Confirm if cytology was sent with the recent para. If not can redo a diagnostic tap to obtain. SAAG, etc. to be calculated. -MSSA Bacteremia, resolved. If no cx growth DC the PICC; he completed the naf. FU with ID. -Acute on chronic diastolic heart failure; QD aldactone with PRN lasix per renal. Diuresis limited due to renal function. Optimum fluid removal would require HD at this point. -HTN; will c/w Coreg, Hydralazine, Clonidine, Aldactone, Procardia XL -Hx PPM (Per syncope; AV paced) - Stage V CKD -Anemia (Stable, perameter to xf is 7) Full Code <Raji Purvis - Last Filed: 08/23/19 22:21>
[2019-08-22 11:48] LABS: EOS % 9.3 % (0-4.5); HEMATOCRIT 25.3 % (35.4-49); HEMOGLOBIN 8.3 GM/dL (11.7-16.9); LYMPH % 13.4 % (8-40); MCH 29.5 pg (25.7-33.7); MEAN CELL VOLUME 89.6 fl (80-96); MONO % 7.8 % (3.8-10.2); NEUT % 68.5 % (42.8-82.8); PLATELET COUNT 501 K/MM3 (134-434); RBC 2.82 M/mm3 (4.00-5.60); RDW 17.5 % (11.9-15.9); WHITE BLOOD COUNT 7.5 K/mm3 (4.0-10.0)
[2019-08-22 12:15] LABS: ALBUMIN 1.2 g/dl (3.4-5.0); ALK PHOS 56 U/L (45-117); ANION GAP 6 MMOL/L (8-16); BILIRUBIN,TOTAL 0.5 mg/dL (0.2-1); BLOOD UREA NITROGEN 43.8 mg/dL (7-18); CALCIUM 7.3 mg/dL (8.5-10.1); CHLORIDE 114 mmol/L (98-107); CO2 21 mmol/L (21-32); CREATININE 4.1 mg/dL (0.55-1.3); GLUCOSE,RANDOM 96 mg/dL (74-106); POTASSIUM 3.8 mmol/L (3.5-5.1); SGOT/AST 9 U/L (15-37); SGPT/ALT < 6 U/L (13-61); SODIUM 142 mmol/L (136-145); TOT PROT 4.6 g/dl (6.4-8.2)
--- NOTE | 2019-08-22 12:26 | PN ---
Progress Note, Physician History of Present Illness: Pt seen and examined at bedside. He is awake and alert. He had the paracentesis. - Current Medication List Current Medications: Active Medications Carvedilol (Coreg -) 25 mg PO BID [facility] Last Admin: 08/22/19 10:49 Dose: 25 mg Clonidine (Catapres -) 0.2 mg PO BID [facility] Last Admin: 08/22/19 10:48 Dose: 0.2 mg Folic Acid (Folic Acid -) 1 mg PO DAILY [facility] Last Admin: 08/22/19 10:49 Dose: 1 mg Hydralazine HCl (Apresoline -) 25 mg PO TID [facility] Last Admin: 08/22/19 06:38 Dose: Not Given Isosorbide Mononitrate (Imdur -) 60 mg PO DAILY [facility] Last Admin: 08/22/19 10:49 Dose: 60 mg Nifedipine (Procardia Xl -) 60 mg PO BID [facility] Last Admin: 08/22/19 10:49 Dose: 60 mg Spironolactone (Aldactone -) 25 mg PO DAILY [facility] Last Admin: 08/22/19 10:49 Dose: 25 mg Thiamine HCl (Vitamin B1 -) 100 mg PO DAILY [facility] Last Admin: 08/22/19 10:49 Dose: 100 mg - Objective Vital Signs: Vital Signs Temperature 98.3 F 08/22/19 09:00 Pulse Rate 66 08/22/19 09:00 Respiratory Rate 18 08/22/19 09:00 Blood Pressure 134/77 08/22/19 09:00 O2 Sat by Pulse Oximetry (%) 97 08/22/19 09:00 Constitutional: Yes: Calm Eyes: Yes: Conjunctiva Clear HENT: Yes: Atraumatic Neck: Yes: Supple Cardiovascular: Yes: S1, S2 Respiratory: Yes: CTA Bilaterally Gastrointestinal: Yes: Soft Genitourinary: Yes: WNL Musculoskeletal: Yes: WNL Edema: Yes Edema: LLE: Trace, RLE: Trace Neurological: Yes: Oriented Psychiatric: Yes: Oriented Labs: CBC, BMP 08/22/19 11:05 08/22/19 11:05 INR, PTT INR 1.30 (0.83-1.09) H 08/21/19 09:10 Assessment/Plan Current Medications Generic Name Dose Route Start Last Admin Trade Name Johnathanq PRN Reason Stop Dose Admin Carvedilol 25 mg 08/17/19 10:00 08/22/19 10:49 Coreg - PO 25 mg BID ERMIAS Administration Clonidine 0.2 mg 08/17/19 10:00 08/22/19 10:48 Catapres - PO 0.2 mg BID ERMIAS Administration Folic Acid 1 mg 08/17/19 10:00 08/22/19 10:49 Folic Acid - PO 1 mg DAILY ERMIAS Administration Hydralazine HCl 25 mg 08/17/19 14:00 08/22/19 06:38 Apresoline - PO Not Given TID ERMIAS Isosorbide Mononitrate 60 mg 08/17/19 10:00 08/22/19 10:49 Imdur - PO 60 mg DAILY ERMIAS Administration Nifedipine 60 mg 08/17/19 10:00 08/22/19 10:49 Procardia Xl - PO 60 mg BID ERMIAS Administration Spironolactone 25 mg 08/17/19 10:00 08/22/19 10:49 Aldactone - PO 25 mg DAILY ERMIAS Administration Thiamine HCl 100 mg 08/17/19 10:00 08/22/19 10:49 Vitamin B1 - PO 100 mg DAILY ERMIAS Administration Impression 1. CKD 2. CHF 3. ascites 4. bactermia 5. htn Plan - renal function is improving - cont diuretics - monitor volume status - called and spoke to his daughter Jacinda, [phone] - avoid nsaids - avoid nephrotoxins - cont aldactone - monitor lytes - renal diet
--- NOTE | 2019-08-22 17:25 | PN.GI ---
GI Progress Note Subjective: No abdominal pain S/P Paracentesis yesterday - Objective Vital Signs: Vital Signs Temperature 98.3 F 08/22/19 09:00 Pulse Rate 66 08/22/19 09:00 Respiratory Rate 18 08/22/19 09:00 Blood Pressure 122/72 08/22/19 15:22 O2 Sat by Pulse Oximetry (%) 97 08/22/19 09:00 Constitutional: Calm Eyes: No: Sclera Icterus Cardiovascular: Yes: Regular Rate and Rhythm Respiratory: Yes: CTA Bilaterally Gastrointestinal Inspection: Yes: Distention (softly) ...Auscultate: Yes: Normoactive Bowel Sounds ...Palpate: Yes: Soft. No: Hepatomegaly, Splenomegaly, Tenderness ...Percussion: No: Tympanitic Edema: No (No LE edema) Neurological: Yes: Alert Labs: CBC, BMP 08/22/19 11:05 08/22/19 11:05 INR, PTT INR 1.30 (0.83-1.09) H 08/21/19 09:10 Laboratory Tests 08/21/19 15:30 Fluid WBC 111 Fluid RBC 364 Fluid Neutrophils 8 Fluid Lymphocytes 11 Pleural Monocytes 14 Pleural Macrophages 67 Problem List - Problems (1) Ascites Assessment/Plan: Awaiting fluid analysis No evidence of SBP 3 + protain noted in UA. Suspect renal source of ascites. Will see what fluid shows. Code(s): R18.8 - OTHER ASCITES Qualifiers: Ascites type: other type Qualified Code(s): R18.8 - Other ascites
[2019-08-22] MEDS ORDERED: PT OWN MED DRAWER 7, Y5N ONE (21:30)
--- NOTE | 2019-08-23 09:32 | PN ---
Progress Note (short form) - Note Progress Note: Hospitalist Medicine Without complaint this AM. Repeat blood cx (-) thus removed PICC line this evening. Pt without complaint. Vitals (did not permit this AM) 08/22/19 09:00 Temperature 98.3 F Pulse Rate 66 Respiratory 18 Rate Blood Pressure 134/77 Physical Exam (did not permit this AM; "not interested") Last Laboratory Tests (refused labs this AM) 08/21/19 08/21/19 15:30 15:30 PTT (Actin FS) Carbon Dioxide Creatinine Fluid Source Abdominal fluid POC Fluid pH Pending Fluid RBC Pending Fluid Neutrophils Pending Fluid Glucose Pending Fluid Total Protein Pending Fluid Albumin Pending Body Fluid LDH Source Pending Fluid Amylase Pending Fluid Triglycerides Pending Microbiology 08/21/19 15:30 Abdomen Gram Stain - Final 08/18/19 16:00 Stool Clostridioides difficile Antigen - Final 08/18/19 16:00 Stool Clostridioides difficile Toxin Assay - Final 08/21/19 15:30 Abdomen ELIER Preparation - Preliminary 08/21/19 15:30 Abdomen Fungal Culture - Preliminary 08/21/19 15:30 Abdomen Body Fluid Culture - Preliminary NO AEROBIC GROWTH, 24 HRS 08/21/19 15:30 Abdomen AFB Smear Concentration - Preliminary 08/21/19 15:30 Abdomen Mycobacterial Culture - Preliminary 08/19/19 11:05 Blood - Peripheral Venous Blood Culture - Preliminary NO GROWTH OBTAINED AFTER 72 HOURS, INCUBATION TO CONTINUE FOR 2 DAYS. 08/19/19 10:50 Blood - Peripheral Venous Blood Culture - Preliminary NO GROWTH OBTAINED AFTER 72 HOURS, INCUBATION TO CONTINUE FOR 2 DAYS. Imaging 08/16/19: CXR: weak inspiration with atelectasis in R mid and lower lung field, prominent mediatinum , sclerotic knob and pacemaker. Soft tissues are intact. 08/21/19: carotid duplex: mild atherosclerotic dz with no evidence of hemodynamically sig stenoses. 08/21/19: renal and bladder sono: ascites, medical renal dz. no hydro or acute pathology. 08/22/19: CXR: since 08/16, atelectasis on R resolved. R line and L pacemaker persist. new ateletasis at L base. ECHO EF 60-65% PPM lead in RV LA mildly dilated mild MR mild to moderate mild AR small pericardial effusion < 1cm EKG: atrial-sensed ventricular rhythm, qtc 547ms - PACED Assessment/plan 69 y/o M with PMH HTN, CKD4, recent MSSA bacteremia on nafcillin, PPM, ascites, who presented for suspected syncopal event. Pt currently evaluated for syncopal event etiology as well as ascites mgmt. #Syncopal event -ECHO without acute abnormality; 60-65% EF, LA mild dilation, mild MR, TR mild-moderate , small pericardial effusion -PVCs noted on tele -cardio interrogating PPM -carotid duplex: w/o evidence of hem significant stenosis #Ascites -plavix held since 08/17, asa is held - restart when approved by GI -s/p dx and therapeutic paracentesis with IR (08/21) -f/u cultures, para labs, ?exudative P/S ratio 0.5, LDH pending. not consistent w/ liver. -c/w aldactone, started on lasix -refused CTAP -GI: Dr. Griselda Ramires #Recent MSSA bacteremia w/ PICC line -nafcillin has been d/c -repeat blood cx (-), PICC line removed (08/23) -ID: Dr. Panchal #Elevated BNP -ECHO done; result above -started on lasix -may need HD given CKD; may be difficult to remove fluid via lasix per cardio, pt has refused HD previously. still refusing #HTN- controlled hx PPM -c/w hydralazine, clonidine -c/w imdur, coreg -c/w procardia -asa and plavix are still held to be started when approved by GI -Cardio on board: Dr. Osorio #CKD4 -f/u renal, bladder sono #hx flagyl abx -has been d/c -d/w facility; was on d/t suspicion for c. diff however tested (-) x 2 (-) at our facility, will d/c #F/E/N not on ivf continue to follow lytes renal diet #ppx DVT: SCD's #Dispo cont'd monitoring PICC line removed will need further plan by GI <Morenita Banuelos - Last Filed: 08/23/19 16:27> - Note Progress Note: Seen and examined; agree with above aside from as supplemented. All omalley historical and PE information alongside labs, imaging, and diagnostics reviewed. Discussed at length with resident team and indicated consultants. Overall he remains averse to in depth conversation regarding his condition. He understands the concept of HD but is not in favor of continually pursuing it and will not discuss further. He is AAOx3, and though he refuses to discuss this he can discuss other subjects. There does appear to be capacity. Furthermore, he has no new symptoms today and states that he would like to go home when available. Will discuss regarding cytology-if none was sent will reorder and send per GI. Nephrology adding lasix dose today Will investigate the plavix use-will need to clear with GI to restart prior to discharging and there is no urgent indication to restart him on the medication given that he denies a history of peripheral or cardiac stenting. The presence of his pacemaker also remains a mystery. He states it was placed in [place]. Review of cardiac notes state that there have been no records from that hospital available for this patient, though. They have also reached out to [employer], [employer], etc. and have no companies with this patient's name on file. His refusal to participate in ongoing exam makes it difficult. 10 sys ROS done and negative aside from HPI VS labs imaging reviewed NAD, AAO, resting in bed HR wnl, s1/2+ NT ND +BS CN2-12 wnl, no fnd Terse mood, flat affect, retains cognition. *Refused labs this AM. A/P: Patient presents with fluid overload secondary to diastolic CHF and CKD-V that is likely going to require HD in the future if patient wants to continue to to maintain function as it stants. He is being diuresed with aldactone and QD evaluation for lasix admin by nephrology consult. Problems include: -Acute syncope, no further issues on telemetry, remains resolved. Aforementioned issue with interrogation. Further management per CV. Followup lytes. Discuss with HCP regarding prior medicals. -Ascites-Confirm if cytology was sent with the recent para. If not can redo a diagnostic tap to obtain. SAAG, etc. to be calculated. -MSSA Bacteremia, resolved. If no cx growth DC the PICC; he completed the naf. FU with ID. -Acute on chronic diastolic heart failure; QD aldactone with PRN lasix per renal. Diuresis limited due to renal function. Optimum fluid removal would require HD at this point. -HTN; will c/w Coreg, Hydralazine, Clonidine, Aldactone, Procardia XL -Hx PPM (Per syncope) - Stage V CKD -Anemia (Stable, perameter to xf is 7) Full Code <Raji Purvis - Last Filed: 08/23/19 22:20>
[2019-08-23] MEDS: cloNIDine HCL 0.1 MG TABLET PO SCH ×2 (10:28→21:44)
[2019-08-23] MEDS: NIFEdipine E.R 60 MG TABLET (UD) PO SCH ×2 (10:28→21:44)
[2019-08-23] MEDS: SPIRONOLACTONE 25 MG TABLET (FP) PO SCH (10:28)
[2019-08-23] MEDS: CARVEDILOL 25 MG TABLET (FP) PO SCH ×2 (10:29→21:45)
[2019-08-23] MEDS: THIAMINE HCL 100 MG TABLET (FP) PO SCH (10:29)
[2019-08-23] MEDS: FOLIC ACID 1 MG TABLET (FP) PO SCH (10:29)
[2019-08-23] MEDS: ISOSORBIDE MONONITRATE 60 MG TAB.SR.24H (FP) PO SCH (10:29)
--- NOTE | 2019-08-23 10:29 | PN ---
Progress Note, Physician Chief Complaint: no distress Denies CP, SOB, dizziness TELE: Paced. - Current Medication List Current Medications: Active Medications Carvedilol (Coreg -) 25 mg PO BID [facility] Last Admin: 08/22/19 21:49 Dose: 25 mg Clonidine (Catapres -) 0.2 mg PO BID [facility] Last Admin: 08/22/19 21:49 Dose: 0.2 mg Folic Acid (Folic Acid -) 1 mg PO DAILY [facility] Last Admin: 08/22/19 10:49 Dose: 1 mg Hydralazine HCl (Apresoline -) 25 mg PO TID [facility] Last Admin: 08/22/19 21:49 Dose: 25 mg Isosorbide Mononitrate (Imdur -) 60 mg PO DAILY [facility] Last Admin: 08/22/19 10:49 Dose: 60 mg Nifedipine (Procardia Xl -) 60 mg PO BID [facility] Last Admin: 08/22/19 21:49 Dose: 60 mg Spironolactone (Aldactone -) 25 mg PO DAILY [facility] Last Admin: 08/22/19 10:49 Dose: 25 mg Thiamine HCl (Vitamin B1 -) 100 mg PO DAILY [facility] Last Admin: 08/22/19 10:49 Dose: 100 mg - Objective Vital Signs: Vital Signs Temperature 98.2 F 08/22/19 21:00 Pulse Rate 70 08/22/19 21:00 Respiratory Rate 20 08/23/19 09:00 Blood Pressure 123/75 08/22/19 21:00 O2 Sat by Pulse Oximetry (%) 98 08/23/19 09:00 Constitutional: Yes: No Distress Cardiovascular: Yes: Regular Rate and Rhythm Respiratory: Yes: Other (slight decreased breath sounds at bases, o/w clear) Gastrointestinal: Yes: Soft Edema: Yes Edema: LLE: 1+, RLE: 1+ Neurological: Yes: Alert, Oriented Labs: CBC, BMP 08/22/19 11:05 08/22/19 11:05 INR, PTT INR 1.30 (0.83-1.09) H 08/21/19 09:10 - ....Imaging EKG: Image Reviewed Assessment/Plan Assessment/Plan echo 08/2019 nl LV/RV function, PPM lead RV, LA mildly dilated, mild MR, mild TR, mild to mod aortic sclerosis, mild AR, sm pericardial effusion tele: SR, vp patient/ap, as/vp patient 69 yo AA male with CKD, HTN underlying liver disease, known PPM now s/p syncope Syncope: -Unclear etiology, occurred while sitting down -Non-orthostatic here -Tele continues to show nl pacer fxn -attempted to arrange for device interrogation, if can confirm the cat scan technologist ([employer], [employer], [employer] and [employer] were contacted and do not have him in their records). Implanted at [place] - have been unable to obtain records Acute diastolic HF: improved -Clinically with volume overload on exam, ++ distended abdomen--lasix per renal - awaiting fluid analysis from paracentesis; to resume plavix when ok w/ GI - patient does not know why he is on plavix - denies hx of cardiac or peripheral stents -echo nl LV function -Has advanced CKD and has been informed in the past about possible HD, however he has refused this HTN: -bp controlled -cont outpatient antihypertensive regimen
[2019-08-23] MEDS: hydrALAZINE HCL 25 MG TABLET (FP) PO SCH ×3 (10:30→21:44)
--- NOTE | 2019-08-23 12:48 | PN ---
Progress Note (short form) - Note Progress Note: Fluid analysis: SAAG 0.2 with relatively total low protein of 2.3 No C/W liver disease ? if related to neprhotic syndrome If cytology not sent, should be retaooed and sent Renal follow-up Problem List - Problems (1) Ascites Code(s): R18.8 - OTHER ASCITES Qualifiers: Ascites type: other type Qualified Code(s): R18.8 - Other ascites
[2019-08-23] MEDS ORDERED: POTASSIUM CHLORIDE TABS 20 MEQ TABLET.ER (FP) PO ONE (12:51)
--- NOTE | 2019-08-23 12:51 | PN ---
Progress Note, Physician History of Present Illness: Pt seen and examined at bedside. he is awake and alert. he denies shortness of breath. - Current Medication List Current Medications: Active Medications Carvedilol (Coreg -) 25 mg PO BID [facility] Last Admin: 08/23/19 10:29 Dose: 25 mg Clonidine (Catapres -) 0.2 mg PO BID [facility] Last Admin: 08/23/19 10:28 Dose: 0.2 mg Folic Acid (Folic Acid -) 1 mg PO DAILY [facility] Last Admin: 08/23/19 10:29 Dose: 1 mg Hydralazine HCl (Apresoline -) 25 mg PO TID [facility] Last Admin: 08/23/19 10:32 Dose: Not Given Isosorbide Mononitrate (Imdur -) 60 mg PO DAILY [facility] Last Admin: 08/23/19 10:29 Dose: 60 mg Nifedipine (Procardia Xl -) 60 mg PO BID [facility] Last Admin: 08/23/19 10:28 Dose: 60 mg Spironolactone (Aldactone -) 25 mg PO DAILY [facility] Last Admin: 08/23/19 10:28 Dose: 25 mg Thiamine HCl (Vitamin B1 -) 100 mg PO DAILY [facility] Last Admin: 08/23/19 10:29 Dose: 100 mg - Objective Vital Signs: Vital Signs Temperature 98.2 F 08/22/19 21:00 Pulse Rate 70 08/22/19 21:00 Respiratory Rate 20 08/23/19 09:00 Blood Pressure 123/75 08/22/19 21:00 O2 Sat by Pulse Oximetry (%) 98 08/23/19 09:00 Constitutional: Yes: Calm Eyes: Yes: Conjunctiva Clear HENT: Yes: Atraumatic Neck: Yes: Supple Cardiovascular: Yes: S1, S2 Respiratory: Yes: CTA Bilaterally Gastrointestinal: Yes: Soft, Ascites Genitourinary: Yes: WNL Musculoskeletal: Yes: WNL Edema: Yes Edema: LLE: Trace, RLE: Trace Neurological: Yes: Oriented Psychiatric: Yes: Oriented Labs: CBC, BMP 08/22/19 11:05 08/22/19 11:05 INR, PTT INR 1.30 (0.83-1.09) H 08/21/19 09:10 Assessment/Plan Current Medications Generic Name Dose Route Start Last Admin Trade Name Freq PRN Reason Stop Dose Admin Carvedilol 25 mg 08/17/19 10:00 08/23/19 10:29 Coreg - PO 25 mg BID [facility] Administration Clonidine 0.2 mg 08/17/19 10:00 08/23/19 10:28 Catapres - PO 0.2 mg BID [facility] Administration Folic Acid 1 mg 08/17/19 10:00 08/23/19 10:29 Folic Acid - PO 1 mg DAILY [facility] Administration Hydralazine HCl 25 mg 08/17/19 14:00 08/23/19 10:32 Apresoline - PO Not Given TID ERMIAS Isosorbide Mononitrate 60 mg 08/17/19 10:00 08/23/19 10:29 Imdur - PO 60 mg DAILY [facility] Administration Nifedipine 60 mg 08/17/19 10:00 08/23/19 10:28 Procardia Xl - PO 60 mg BID [facility] Administration Spironolactone 25 mg 08/17/19 10:00 08/23/19 10:28 Aldactone - PO 25 mg DAILY [facility] Administration Thiamine HCl 100 mg 08/17/19 10:00 08/23/19 10:29 Vitamin B1 - PO 100 mg DAILY [facility] Administration Impression 1. CKD 2. CHF 3. ascites 4. bactermia 5. htn Plan - add lasix - cot aldacone - monitor lytes - repeat labs in am - daughter Jacinda, [phone] - avoid nsaids - avoid nephrotoxins - renal diet
[2019-08-23] MEDS: FUROSEMIDE 40 MG TABLET (FP) PO SCH (13:47)
[2019-08-24] MEDS: hydrALAZINE HCL 25 MG TABLET (FP) PO SCH ×3 (07:57→21:53)
--- NOTE | 2019-08-24 09:49 | PN ---
Progress Note, Physician History of Present Illness: Patient seen and examined at bedside. Endorses feeling well and wants to go home. Denies nausea vomiting fever chills chest pain or SOB. Eating and drinking well. Patient refusing PT evaluation today. States he is able to walk and walked to the bathroom this morning. Discussed the benefits of doing PT and risks of not doing so and patient just smiled and looked away. States his abdomen feels much better since being tapped yesterday. SAAG score from not consistent with portal hypertension as cause. All systems reviewed and negative except as per above - Current Medication List Current Medications: Active Medications Carvedilol (Coreg -) 25 mg PO BID [facility] Last Admin: 08/23/19 21:45 Dose: 25 mg Clonidine (Catapres -) 0.2 mg PO BID [facility] Last Admin: 08/23/19 21:44 Dose: 0.2 mg Folic Acid (Folic Acid -) 1 mg PO DAILY [facility] Last Admin: 08/23/19 10:29 Dose: 1 mg Furosemide (Lasix -) 40 mg PO DAILY [facility] Last Admin: 08/23/19 13:47 Dose: 40 mg Hydralazine HCl (Apresoline -) 25 mg PO TID [facility] Last Admin: 08/24/19 07:57 Dose: Not Given Isosorbide Mononitrate (Imdur -) 60 mg PO DAILY [facility] Last Admin: 08/23/19 10:29 Dose: 60 mg Nifedipine (Procardia Xl -) 60 mg PO BID [facility] Last Admin: 08/23/19 21:44 Dose: 60 mg Spironolactone (Aldactone -) 50 mg PO DAILY [facility] Thiamine HCl (Vitamin B1 -) 100 mg PO DAILY [facility] Last Admin: 08/23/19 10:29 Dose: 100 mg - Objective Vital Signs: Vital Signs Temperature 98.2 F 08/24/19 09:45 Pulse Rate 62 08/24/19 09:45 Respiratory Rate 20 08/24/19 09:45 Blood Pressure 107/70 08/24/19 09:45 O2 Sat by Pulse Oximetry (%) 99 08/24/19 09:00 Constitutional: Yes: No Distress, Calm Eyes: Yes: EOM Intact Neck: Yes: Supple Cardiovascular: Yes: Regular Rate and Rhythm Respiratory: Yes: Other (bilateral crackles) Gastrointestinal: Yes: Soft, Distention, Other (ascites present) Genitourinary: No: CVA Tenderness - Left, CVA Tenderness - Right Edema: No Neurological: Yes: Alert, Oriented Labs: CBC, BMP 08/22/19 11:05 08/22/19 11:05 INR, PTT INR 1.30 (0.83-1.09) H 08/21/19 09:10 Impression/Plan Impression/Plan: 69M with history of HTN CKD pacemaker placement for unknown cause presented to the hospital with possible syncopal event, ascites, and volume overload found to have worsened renal function. 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 SAAG not consistent with portal HTN as cause. f/u cytology if not done then tap again f/u GI continue lasix patient refusing dialysis HTN-well controlled Continue coreg hydralazine clonidine spironolactone and procardia restart ASA/Plavix when cleared by GI (unknown why patient is on it) CKD: will likely need dialysis in future patient refusing for now continue lasix per nephrology f/u nephrology consult Anemia:Hb stable at 8.3 Bacteremia:off ABx and repeat Cx negative so far Patient presents with fluid overload secondary to diastolic CHF and CKD-V that is likely going to require HD in the future if patient wants to continue to to maintain function as it stants. He is being diuresed with aldactone and QD evaluation for lasix admin by nephrology consult. SCDs for DVT PPx Visit type - Emergency Visit Emergency Visit: Yes ED Registration Date: 08/16/19 Care time: The patient presented to the Emergency Department on the above date and was hospitalized for further evaluation of their emergent condition. - New Patient This patient is new to me today: Yes Date on this admission: 08/24/19 - Critical Care Critical Care patient: No
[2019-08-24] MEDS ORDERED: CLOPIDOGREL BISULFATE 75 MG TABLET (FP) PO SCH (10:00)
[2019-08-24] MEDS ORDERED: ASPIRIN 81 MG CHEWABLE TABLETS PO SCH (10:00)
[2019-08-24] MEDS: cloNIDine HCL 0.1 MG TABLET PO SCH ×2 (10:24→21:53)
[2019-08-24] MEDS: FOLIC ACID 1 MG TABLET (FP) PO SCH (10:25)
[2019-08-24] MEDS: CARVEDILOL 25 MG TABLET (FP) PO SCH ×2 (10:25→21:53)
[2019-08-24] MEDS: SPIRONOLACTONE 25 MG TABLET (FP) PO SCH (10:25)
[2019-08-24] MEDS: ISOSORBIDE MONONITRATE 60 MG TAB.SR.24H (FP) PO SCH (10:25)
[2019-08-24] MEDS: FUROSEMIDE 40 MG TABLET (FP) PO SCH (10:25)
[2019-08-24] MEDS: NIFEdipine E.R 60 MG TABLET (UD) PO SCH ×2 (10:26→21:53)
[2019-08-24] MEDS: THIAMINE HCL 100 MG TABLET (FP) PO SCH (10:26)
--- NOTE | 2019-08-24 13:15 | PN ---
Progress Note (short form) - Note Progress Note: s: no chest pain, palps, dizziness, dyspnea Current Medications Carvedilol (Coreg -) 25 mg PO BID [facility] Last Admin: 08/24/19 10:25 Dose: 25 mg Clonidine (Catapres -) 0.2 mg PO BID [facility] Last Admin: 08/24/19 10:24 Dose: 0.2 mg Folic Acid (Folic Acid -) 1 mg PO DAILY [facility] Last Admin: 08/24/19 10:25 Dose: 1 mg Furosemide (Lasix -) 40 mg PO DAILY [facility] Last Admin: 08/24/19 10:25 Dose: 40 mg Hydralazine HCl (Apresoline -) 25 mg PO TID [facility] Last Admin: 08/24/19 07:57 Dose: Not Given Isosorbide Mononitrate (Imdur -) 60 mg PO DAILY [facility] Last Admin: 08/24/19 10:25 Dose: 60 mg Nifedipine (Procardia Xl -) 60 mg PO BID [facility] Last Admin: 08/24/19 10:26 Dose: 60 mg Spironolactone (Aldactone -) 50 mg PO DAILY [facility] Last Admin: 08/24/19 10:25 Dose: 50 mg Thiamine HCl (Vitamin B1 -) 100 mg PO DAILY [facility] Last Admin: 08/24/19 10:26 Dose: 100 mg Vital Signs Period Temp Pulse Resp BP Sys/Ibanez Pulse Ox Last 24 Hr 97.8 F-98.2 F 60-63 20-20 101-122/63-71 97-99 Constitutional: Yes: No Distress Cardiovascular: Yes: Regular Rate and Rhythm Respiratory: Yes: Other (slight decreased breath sounds at bases, o/w clear) Gastrointestinal: Yes: Soft Edema: Yes Edema: LLE: 1+, RLE: 1+ Neurological: Yes: Alert, Oriented no jaundice, diaphoresis not agitated Assessment/Plan echo 08/2019 nl LV/RV function, PPM lead RV, LA mildly dilated, mild MR, mild TR, mild to mod aortic sclerosis, mild AR, sm pericardial effusion tele: SR, svp research and strategic analysis/ap, as/svp research and strategic analysis 69 yo AA male with CKD, HTN underlying liver disease, known PPM now s/p syncope Syncope: -Unclear etiology, occurred while sitting down -Non-orthostatic here -Tele continues to show nl pacer fxn -attempted to arrange for device interrogation, if can confirm the body piercer ([employer], [employer], [employer] and [employer] were contacted and do not have him in their records). Implanted at [place] - have been unable to obtain records Acute diastolic HF: improved -Clinically with volume overload on exam, ++ distended abdomen--lasix per renal - awaiting fluid analysis from paracentesis; to resume plavix when ok w/ GI - patient does not know why he is on plavix - denies hx of cardiac or peripheral stents -echo nl LV function -Has advanced CKD and has been informed in the past about possible HD, however he has refused this HTN: -bp controlled -cont outpatient antihypertensive regimen
--- NOTE | 2019-08-24 15:47 | PN ---
Progress Note (short form) - Note Progress Note: 1. CKD 2. CHF 3. ascites 4. bactermia 5. htn Active Medications Carvedilol (Coreg -) 25 mg PO BID [facility] Last Admin: 08/24/19 10:25 Dose: 25 mg Clonidine (Catapres -) 0.2 mg PO BID [facility] Last Admin: 08/24/19 10:24 Dose: 0.2 mg Folic Acid (Folic Acid -) 1 mg PO DAILY [facility] Last Admin: 08/24/19 10:25 Dose: 1 mg Furosemide (Lasix -) 40 mg PO DAILY [facility] Last Admin: 08/24/19 10:25 Dose: 40 mg Hydralazine HCl (Apresoline -) 25 mg PO TID [facility] Last Admin: 08/24/19 14:09 Dose: 25 mg Isosorbide Mononitrate (Imdur -) 60 mg PO DAILY [facility] Last Admin: 08/24/19 10:25 Dose: 60 mg Nifedipine (Procardia Xl -) 60 mg PO BID [facility] Last Admin: 08/24/19 10:26 Dose: 60 mg Spironolactone (Aldactone -) 50 mg PO DAILY [facility] Last Admin: 08/24/19 10:25 Dose: 50 mg Thiamine HCl (Vitamin B1 -) 100 mg PO DAILY [facility] Last Admin: 08/24/19 10:26 Dose: 100 mg Last Vital Signs Temp Pulse Resp BP Pulse Ox 98.2 F 62 20 107/70 99 08/24/19 09:45 08/24/19 09:45 08/24/19 09:45 08/24/19 09:45 08/24/19 09:00 CBC, BMP 08/22/19 11:05 08/22/19 11:05 IMP- ckd ascites on lasix and aldactone edith on ckd - renal function improving Plan - add lasix - cot aldacone - monitor lytes - repeat labs in am - daughter Jacinda, [id number] - avoid nsaids - avoid nephrotoxins - renal diet
[2019-08-25] MEDS: hydrALAZINE HCL 25 MG TABLET (FP) PO SCH ×3 (06:52→22:12)
--- NOTE | 2019-08-25 08:56 | PN ---
Progress Note, Physician History of Present Illness: Patient seen and examined at bedside. Endorses feeling well and wants to go home. Denies nausea vomiting fever chills chest pain or SOB. Eating and drinking well. Refused labs today. States he is making good urine output with lasix. Discussed with patient about the very likely possibility for dialysis in the near future and discussed with him that if his renal function continues to worsen there likely will not be other options. All systems reviewed and negative except as per above - Current Medication List Current Medications: Active Medications Carvedilol (Coreg -) 25 mg PO BID [facility] Last Admin: 08/24/19 21:53 Dose: 25 mg Clonidine (Catapres -) 0.2 mg PO BID [facility] Last Admin: 08/24/19 21:53 Dose: 0.2 mg Folic Acid (Folic Acid -) 1 mg PO DAILY [facility] Last Admin: 08/24/19 10:25 Dose: 1 mg Furosemide (Lasix -) 40 mg PO DAILY [facility] Last Admin: 08/24/19 10:25 Dose: 40 mg Hydralazine HCl (Apresoline -) 25 mg PO TID [facility] Last Admin: 08/25/19 06:52 Dose: Not Given Isosorbide Mononitrate (Imdur -) 60 mg PO DAILY [facility] Last Admin: 08/24/19 10:25 Dose: 60 mg Nifedipine (Procardia Xl -) 60 mg PO BID [facility] Last Admin: 08/24/19 21:53 Dose: 60 mg Spironolactone (Aldactone -) 50 mg PO DAILY [facility] Last Admin: 08/24/19 10:25 Dose: 50 mg Thiamine HCl (Vitamin B1 -) 100 mg PO DAILY [facility] Last Admin: 08/24/19 10:26 Dose: 100 mg - Objective Vital Signs: Vital Signs Temperature 98.4 F 08/24/19 22:00 Pulse Rate 61 08/24/19 22:00 Respiratory Rate 20 08/24/19 22:00 Blood Pressure 110/65 08/24/19 22:00 O2 Sat by Pulse Oximetry (%) 94 L 08/24/19 21:00 Constitutional: Yes: No Distress, Calm Eyes: Yes: EOM Intact Neck: Yes: Supple Cardiovascular: Yes: Regular Rate and Rhythm Respiratory: Yes: Other (bilateral crackles) Gastrointestinal: Yes: Soft, Distention, Other (ascites present) Genitourinary: No: CVA Tenderness - Left, CVA Tenderness - Right Edema: No Neurological: Yes: Alert, Oriented Labs: CBC, BMP 08/22/19 11:05 08/22/19 11:05 INR, PTT INR 1.30 (0.83-1.09) H 08/21/19 09:10 Impression/Plan Impression/Plan: 69M with history of HTN CKD pacemaker placement for unknown cause presented to the hospital with possible syncopal event, ascites, and volume overload found to have worsened renal function. Syncope work up noted so far Interrogation of PPM difficult due to not knowing digital marketing coordinator and the team/ consultants that have been taking care of him have been unsuccessful at getting records from [facility]. Patient does not know why he has a PPM. Ascites-improved after tap . SAAG not consistent with portal HTN as cause. f/u cytology if not done then tap again f/u GI continue lasix patient refusing dialysis-discussed this with him again today. I told him there may come a time in the near future where dialysis is going to be definitely needed. He verbalized understanding of this. HTN-well controlled Continue coreg hydralazine clonidine spironolactone and procardia restart ASA/Plavix when cleared by GI (unknown why patient is on it) CKD: will likely need dialysis in future patient refusing for now continue lasix per nephrology f/u nephrology consult Refused labs today Anemia:Hb stable at 8.3 from 3 days ago and he is refusing labs today Bacteremia:off ABx and repeat Cx negative so far SCDs for DVT PPx Visit type - Emergency Visit Emergency Visit: Yes ED Registration Date: 08/16/19 Care time: The patient presented to the Emergency Department on the above date and was hospitalized for further evaluation of their emergent condition. - New Patient This patient is new to me today: No - Critical Care Critical Care patient: No
[2019-08-25] MEDS: cloNIDine HCL 0.1 MG TABLET PO SCH ×2 (11:35→22:12)
[2019-08-25] MEDS: FOLIC ACID 1 MG TABLET (FP) PO SCH (11:35)
[2019-08-25] MEDS: CARVEDILOL 25 MG TABLET (FP) PO SCH ×2 (11:35→22:12)
[2019-08-25] MEDS: ISOSORBIDE MONONITRATE 60 MG TAB.SR.24H (FP) PO SCH (11:35)
[2019-08-25] MEDS: NIFEdipine E.R 60 MG TABLET (UD) PO SCH ×2 (11:35→22:12)
[2019-08-25] MEDS: SPIRONOLACTONE 25 MG TABLET (FP) PO SCH (11:36)
[2019-08-25] MEDS: THIAMINE HCL 100 MG TABLET (FP) PO SCH (11:36)
[2019-08-25] MEDS: FUROSEMIDE 40 MG TABLET (FP) PO SCH (11:36)
--- NOTE | 2019-08-25 12:01 | PN ---
Progress Note (short form) - Note Progress Note: s: no chest pain, palps, dizziness, dyspnea. refusing labs. Current Medications Carvedilol (Coreg -) 25 mg PO BID [facility] Last Admin: 08/25/19 11:35 Dose: 25 mg Clonidine (Catapres -) 0.2 mg PO BID [facility] Last Admin: 08/25/19 11:35 Dose: 0.2 mg Folic Acid (Folic Acid -) 1 mg PO DAILY [facility] Last Admin: 08/25/19 11:35 Dose: 1 mg Furosemide (Lasix -) 40 mg PO DAILY [facility] Last Admin: 08/25/19 11:36 Dose: 40 mg Hydralazine HCl (Apresoline -) 25 mg PO TID [facility] Last Admin: 08/25/19 06:52 Dose: Not Given Isosorbide Mononitrate (Imdur -) 60 mg PO DAILY [facility] Last Admin: 08/25/19 11:35 Dose: 60 mg Nifedipine (Procardia Xl -) 60 mg PO BID [facility] Last Admin: 08/25/19 11:35 Dose: 60 mg Spironolactone (Aldactone -) 50 mg PO DAILY [facility] Last Admin: 08/25/19 11:36 Dose: 50 mg Thiamine HCl (Vitamin B1 -) 100 mg PO DAILY [facility] Last Admin: 08/25/19 11:36 Dose: 100 mg Vital Signs Period Temp Pulse Resp BP Sys/Ibanez Pulse Ox Last 24 Hr 98.4 F 61 20-20 110/65 94 Constitutional: Yes: No Distress Cardiovascular: Yes: Regular Rate and Rhythm Respiratory: Yes: Other (slight decreased breath sounds at bases, o/w clear) Gastrointestinal: Yes: Soft Edema: Yes Edema: LLE: 1+, RLE: 1+ Neurological: Yes: Alert, Oriented no jaundice, diaphoresis not agitated Assessment/Plan echo 08/2019 nl LV/RV function, PPM lead RV, LA mildly dilated, mild MR, mild TR, mild to mod aortic sclerosis, mild AR, sm pericardial effusion tele: SR, vp respiratory/ap, as/vp respiratory 69 yo AA male with CKD, HTN underlying liver disease, known PPM now s/p syncope Syncope: -Unclear etiology, occurred while sitting down -Non-orthostatic here -Tele continues to show nl pacer fxn -attempted to arrange for device interrogation, if can confirm the pier master assistant ([employer], [employer], [employer] and [employer] were contacted and do not have him in their records). Implanted at [place] - have been unable to obtain records - dc tele Acute diastolic HF: improved -s/p paracentesis, resume plavix when ok w/ GI - cont lasix per renal - patient does not know why he is on plavix - denies hx of cardiac or peripheral stents -echo nl LV function -Has advanced CKD and has been informed in the past about possible HD, however he has refused this HTN: -bp controlled -cont outpatient antihypertensive regimen
[2019-08-25 16:09] LABS: MCH 29.5 pg (25.7-33.7); MCHC 32.4 g/dl (32.0-35.9); MEAN PLT VOLUME 7.3 fl (7.5-11.1); PLATELET COUNT 441 K/MM3 (134-434); RBC 2.31 M/mm3 (4.00-5.60); WHITE BLOOD COUNT 6.9 K/mm3 (4.0-10.0)
[2019-08-25 16:36] LABS: HEMOGLOBIN 6.8 GM/dL (11.7-16.9)
[2019-08-25 16:45] LABS: ALBUMIN 1.1 g/dl (3.4-5.0); ALK PHOS 52 U/L (45-117); ANION GAP 6 MMOL/L (8-16); BILIRUBIN,TOTAL 0.3 mg/dL (0.2-1); BLOOD UREA NITROGEN 35.8 mg/dL (7-18); CHLORIDE 112 mmol/L (98-107); CO2 22 mmol/L (21-32); CREATININE 3.1 mg/dL (0.55-1.3); GLUCOSE,RANDOM 124 mg/dL (74-106); POTASSIUM 4.1 mmol/L (3.5-5.1); SGOT/AST 7 U/L (15-37); SGPT/ALT < 6 U/L (13-61); SODIUM 140 mmol/L (136-145); TOT PROT 4.2 g/dl (6.4-8.2)
--- NOTE | 2019-08-25 20:59 | PN ---
Progress Note (short form) - Note Progress Note: 1. CKD 2. CHF 3. ascites 4. bactermia 5. htn Current Medications Carvedilol (Coreg -) 25 mg PO BID [facility] Last Admin: 08/25/19 11:35 Dose: 25 mg Clonidine (Catapres -) 0.2 mg PO BID [facility] Last Admin: 08/25/19 11:35 Dose: 0.2 mg Folic Acid (Folic Acid -) 1 mg PO DAILY [facility] Last Admin: 08/25/19 11:35 Dose: 1 mg Furosemide (Lasix -) 40 mg PO DAILY [facility] Last Admin: 08/25/19 11:36 Dose: 40 mg Hydralazine HCl (Apresoline -) 25 mg PO TID [facility] Last Admin: 08/25/19 15:30 Dose: Not Given Isosorbide Mononitrate (Imdur -) 60 mg PO DAILY [facility] Last Admin: 08/25/19 11:35 Dose: 60 mg Nifedipine (Procardia Xl -) 60 mg PO BID [facility] Last Admin: 08/25/19 11:35 Dose: 60 mg Spironolactone (Aldactone -) 50 mg PO DAILY [facility] Last Admin: 08/25/19 11:36 Dose: 50 mg Thiamine HCl (Vitamin B1 -) 100 mg PO DAILY [facility] Last Admin: 08/25/19 11:36 Dose: 100 mg Last Vital Signs Temp Pulse Resp BP Pulse Ox 97.4 F L 60 20 101/64 99 08/25/19 10:00 08/25/19 18:00 08/25/19 18:00 08/25/19 18:00 08/25/19 10:00 lungs clear heart reg abd soft CBC, BMP 08/25/19 14:58 08/25/19 14:58 CBC, BMP 08/22/19 11:05 08/22/19 11:05 IMP- ckd ascites on lasix and aldactone edith on ckd - renal function improving Plan - f/u labs
[2019-08-26] MEDS: hydrALAZINE HCL 25 MG TABLET (FP) PO SCH ×3 (06:42→23:18)
--- NOTE | 2019-08-26 09:50 | PN ---
Progress Note, Physician Chief Complaint: syncope History of Present Illness: states he has felt fine, with no dizzy/LH, syncope, cp, sob, palp states he is going to live with dtr in [place] at least temporarily, and she has made appt for outpt eval with sales activity manager there i advised him to make sure that the cardio he sees gets records of the PM implant from [place] (done approx 1.5 yrs ago per pt) and arranges PM interrogation, and he verbalized understanding of plan - Current Medication List Current Medications: Active Medications Carvedilol (Coreg -) 25 mg PO BID [facility] Last Admin: 08/25/19 22:12 Dose: 25 mg Clonidine (Catapres -) 0.2 mg PO BID [facility] Last Admin: 08/25/19 22:12 Dose: 0.2 mg Folic Acid (Folic Acid -) 1 mg PO DAILY [facility] Last Admin: 08/25/19 11:35 Dose: 1 mg Furosemide (Lasix -) 40 mg PO DAILY [facility] Last Admin: 08/25/19 11:36 Dose: 40 mg Hydralazine HCl (Apresoline -) 25 mg PO TID [facility] Last Admin: 08/26/19 06:42 Dose: Not Given Isosorbide Mononitrate (Imdur -) 60 mg PO DAILY [facility] Last Admin: 08/25/19 11:35 Dose: 60 mg Nifedipine (Procardia Xl -) 60 mg PO BID [facility] Last Admin: 08/25/19 22:12 Dose: 60 mg Spironolactone (Aldactone -) 50 mg PO DAILY [facility] Last Admin: 08/25/19 11:36 Dose: 50 mg Thiamine HCl (Vitamin B1 -) 100 mg PO DAILY [facility] Last Admin: 08/25/19 11:36 Dose: 100 mg - Objective Vital Signs: Vital Signs Temperature 98.1 F 08/26/19 09:45 Pulse Rate 59 L 08/26/19 09:45 Respiratory Rate 20 08/26/19 09:45 Blood Pressure 123/72 08/26/19 09:45 O2 Sat by Pulse Oximetry (%) 99 08/25/19 21:00 Constitutional: Yes: Well Nourished, No Distress, Calm Neck: Yes: Thyromegaly Cardiovascular: Yes: Regular Rate and Rhythm, S1, S2. No: Gallop, Murmur Respiratory: Yes: Regular, CTA Bilaterally. No: Accessory Muscle Use, Rales, Wheezes Extremities: No: Cold Edema: No Neurological: Yes: Alert, Oriented Psychiatric: No: Agitated Labs: CBC, BMP 08/25/19 14:58 08/25/19 14:58 INR, PTT INR 1.30 (0.83-1.09) H 08/21/19 09:10 Assessment/Plan echo 08/2019 nl LV/RV function, PPM lead RV, LA mildly dilated, mild MR, mild TR , mild to mod aortic sclerosis, mild AR, sm pericardial effusion tele: 69 yo AA male with CKD, HTN underlying liver disease, known PPM now s/p syncope Syncope: -Unclear etiology, occurred while sitting down -Non-orthostatic here -Tele continues to show nl pacer fxn throughout -attempted to arrange for device interrogation, however when pt demographics were provided to all manufacturers ([employer], [employer], [employer], [employer], [employer]), all denied having record of his device. -Implanted at [place] (2016 or 2017 per pt) -requires outpt cardio f/u to obtain records from [place] and arrange device check. given normal tele for 7 days now, this can be done as outpatient and is already arranged by dtr, per pt (see HPI) Acute diastolic HF: improved - s/p paracentesis, resume plavix when ok w/GI - cont lasix per renal - patient does not know why he is on plavix - denies hx of cardiac or peripheral stents - echo nl LV function - has advanced CKD and has been informed in the past about possible HD, however he has refused this HTN: -bp controlled -cont outpatient antihypertensive regimen ok for d/c from cv pov
--- NOTE | 2019-08-26 10:47 | PN ---
Progress Note (short form) - Note Progress Note: Hospitalist Medicine States that he feels well today and wants to go home. Is from [employer]. Received 1U PRBC yesterday as Hb<7. Awaiting AM labs, as pt refused this AM. Discussed importance with pt, of need to check Hb. expressed verbal understanding. Vitals 08/26/19 09:45 Temperature 98.1 F Pulse Rate 59 L Respiratory 20 Rate Blood Pressure 123/72 Physical Exam general: well-appearing , in NAD HEENT: NCAT, PERRLA neck: supple cardio: S1, S2 RRR. no r/m/g pulm: CTA B/l abdomen: +mild diffuse tenderness. otherwise no guarding, or rigidity LE: 2+ pulses. no edema neuro: nuclear medicine pet ct technologist 2-12 grossly intact Last Laboratory Tests (refused labs this AM) 08/25/19 08/25/19 14:58 14:58 WBC 6.9 RBC 2.31 L Hct 21.0 L D Plt Count 441 H Sodium 140 Potassium 4.1 Chloride 112 H BUN 35.8 H Creatinine 3.1 H Calcium 7.0 L ALT < 6 L Total Protein 4.2 L Albumin 1.1 L Microbiology 08/21/19 15:30 Abdomen Gram Stain - Final 08/18/19 16:00 Stool Clostridioides difficile Antigen - Final 08/18/19 16:00 Stool Clostridioides difficile Toxin Assay - Final 08/21/19 15:30 Abdomen ELIER Preparation - Preliminary 08/21/19 15:30 Abdomen Fungal Culture - Preliminary 08/21/19 15:30 Abdomen Body Fluid Culture - Preliminary NO AEROBIC GROWTH, 24 HRS 08/21/19 15:30 Abdomen AFB Smear Concentration - Preliminary 08/21/19 15:30 Abdomen Mycobacterial Culture - Preliminary 08/19/19 11:05 Blood - Peripheral Venous Blood Culture - Preliminary NO GROWTH OBTAINED AFTER 72 HOURS, INCUBATION TO CONTINUE FOR 2 DAYS. 08/19/19 10:50 Blood - Peripheral Venous Blood Culture - Preliminary NO GROWTH OBTAINED AFTER 72 HOURS, INCUBATION TO CONTINUE FOR 2 DAYS. Imaging 08/16/19: CXR: weak inspiration with atelectasis in R mid and lower lung field, prominent mediatinum , sclerotic knob and pacemaker. Soft tissues are intact. 08/21/19: carotid duplex: mild atherosclerotic dz with no evidence of hemodynamically sig stenoses. 08/21/19: renal and bladder sono: ascites, medical renal dz. no hydro or acute pathology. 08/22/19: CXR: since 08/16, atelectasis on R resolved. R line and L pacemaker persist. new ateletasis at L base. ECHO EF 60-65% PPM lead in RV LA mildly dilated mild MR mild to moderate mild AR small pericardial effusion < 1cm EKG: atrial-sensed ventricular rhythm, qtc 547ms - PACED Assessment/plan 69 y/o M with PMH HTN, CKD4, recent MSSA bacteremia on nafcillin, PPM, ascites, who presented for suspected syncopal event. Pt currently evaluated for syncopal event etiology as well as ascites mgmt. #Syncopal event -ECHO without acute abnormality; 60-65% EF, LA mild dilation, mild MR, TR mild-moderate , small pericardial effusion -PVCs noted on tele -cardio interrogating PPM -carotid duplex: w/o evidence of hem significant stenosis #Ascites -plavix held since 08/17, asa is held - restart when approved by GI -s/p dx and therapeutic paracentesis with IR (08/21) -f/u cultures, para labs, ?exudative P/S ratio 0.5, LDH pending. not consistent w/ liver. -c/w aldactone, started on lasix -refused CTAP -GI: Dr. Griselda Ramires #Anemia/blood loss -unclear source; Hb 6.8 however w / adequate rise -per GI: for EGD tomorrow -NPO after MN -call placed to [place] medical records; awaiting call back- claims clerk sent request form #Recent MSSA bacteremia w/ PICC line -nafcillin has been d/c -repeat blood cx (-), PICC line removed (08/23) -ID: Dr. Panchal #Elevated BNP -ECHO done; result above -started on lasix -may need HD given CKD; may be difficult to remove fluid via lasix per cardio, pt has refused HD previously. still refusing #HTN- controlled hx PPM -c/w hydralazine, clonidine -c/w imdur, coreg -c/w procardia -asa and plavix are still held to be started when approved by GI -Cardio on board: Dr. Osorio #CKD4 -f/u renal, bladder sono #hx flagyl abx -has been d/c -d/w facility; was on d/t suspicion for c. diff however tested (-) x 2 (-) at our facility, will d/c #F/E/N not on ivf continue to follow lytes renal diet, NPO after MN for scope #ppx DVT: SCD's #Dispo cont'd monitoring PICC line removed per GI; for EGD tomorrow . NPO after MN from [facility] <Morenita Banuelos - Last Filed: 08/26/19 19:00> - Note Progress Note: Seen and examined; please see resident note for further information. Agree with above as documented aside from as supplemented by myself. Personally verified all omalley historical details, PE findings, as well as all labs, imaging, and diagnostics. Discussed at length with resident and indicated consultants. No further subjective findings. Discussed case and discharge plan with cardiology. He plans to followup with a provider in [place] and to go home with his daughter which is reasonable but needs to be confirmed given his risk factors. Will ensure family meeting is had between myself, patient, resident, and daughter tomorrow before DC considered. No CP, SOB noted. Somewhat resistent to questioning. I deferred discussing dialysis possibilities given prior interaction regarding the subject. Will continue with DC planning with CM /SW. 10 sys ROS done and negative aside from HPI NAD, AAO, resting in bed NC AT EOMI PERRLA HR wnl, s1/2+ Lungs CTAB, w/ sym exp NT ND +BS CN2-12 wnl, no fnd Normal mood, appropriate behavior, average insight Trachea midline, no JVD Prior labs, weekend documentation reviewed. A/P: Patient presents with worsening CKD and fluid overload secondary to this with underlying HFpEF and is resistent to discussing treatment with HD in the future. Hemodynamics stable. Diuretic status noted. Nephro and CV continue to follow. Agree with problem list as documented above. 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 Portal HTN, etc. considered. Resending a sample for cytology per GI recs) -Pending EGD (may resume antiplatelets when clear with GI) Full Code <Raji Purvis - Last Filed: 08/27/19 02:18>
[2019-08-26] MEDS: FOLIC ACID 1 MG TABLET (FP) PO SCH (11:18)
[2019-08-26] MEDS: ISOSORBIDE MONONITRATE 60 MG TAB.SR.24H (FP) PO SCH (11:18)
[2019-08-26] MEDS: SPIRONOLACTONE 25 MG TABLET (FP) PO SCH (11:18)
[2019-08-26] MEDS: FUROSEMIDE 40 MG TABLET (FP) PO SCH (11:18)
[2019-08-26] MEDS: CARVEDILOL 25 MG TABLET (FP) PO SCH ×2 (11:19→23:18)
[2019-08-26] MEDS: cloNIDine HCL 0.1 MG TABLET PO SCH ×2 (11:19→23:18)
[2019-08-26] MEDS: THIAMINE HCL 100 MG TABLET (FP) PO SCH (11:19)
[2019-08-26] MEDS: NIFEdipine E.R 60 MG TABLET (UD) PO SCH ×2 (11:19→23:18)
[2019-08-26 12:38] LABS: BASO % 0.7 % (0-2.0); EOS % 9.4 % (0-4.5); HEMATOCRIT 25.8 % (35.4-49); HEMOGLOBIN 8.6 GM/dL (11.7-16.9); LYMPH % 10.4 % (8-40); MCHC 33.4 g/dl (32.0-35.9); MEAN CELL VOLUME 89.8 fl (80-96); MEAN PLT VOLUME 7.1 fl (7.5-11.1); MONO % 7.1 % (3.8-10.2); NEUT % 72.4 % (42.8-82.8); PLATELET COUNT 424 K/MM3 (134-434); RBC 2.87 M/mm3 (4.00-5.60); RDW 17.3 % (11.9-15.9); WHITE BLOOD COUNT 8.8 K/mm3 (4.0-10.0)
--- NOTE | 2019-08-26 12:47 | PN ---
Progress Note, Physician History of Present Illness: Pt seen and examined at bedside. He is asking to go home. He denies shortness of breath. - Current Medication List Current Medications: Active Medications Carvedilol (Coreg -) 25 mg PO BID [facility] Last Admin: 08/26/19 11:19 Dose: 25 mg Clonidine (Catapres -) 0.2 mg PO BID [facility] Last Admin: 08/26/19 11:19 Dose: 0.2 mg Folic Acid (Folic Acid -) 1 mg PO DAILY [facility] Last Admin: 08/26/19 11:18 Dose: 1 mg Furosemide (Lasix -) 40 mg PO DAILY [facility] Last Admin: 08/26/19 11:18 Dose: 40 mg Hydralazine HCl (Apresoline -) 25 mg PO TID [facility] Last Admin: 08/26/19 06:42 Dose: Not Given Isosorbide Mononitrate (Imdur -) 60 mg PO DAILY [facility] Last Admin: 08/26/19 11:18 Dose: 60 mg Nifedipine (Procardia Xl -) 60 mg PO BID [facility] Last Admin: 08/26/19 11:19 Dose: 60 mg Spironolactone (Aldactone -) 50 mg PO DAILY [facility] Last Admin: 08/26/19 11:18 Dose: 50 mg Thiamine HCl (Vitamin B1 -) 100 mg PO DAILY [facility] Last Admin: 08/26/19 11:19 Dose: 100 mg - Objective Vital Signs: Vital Signs Temperature 98.1 F 08/26/19 09:45 Pulse Rate 59 L 08/26/19 09:45 Respiratory Rate 20 08/26/19 09:45 Blood Pressure 123/72 08/26/19 09:45 O2 Sat by Pulse Oximetry (%) 95 08/26/19 09:00 Constitutional: Yes: Calm Eyes: Yes: Conjunctiva Clear HENT: Yes: Atraumatic Neck: Yes: Supple Cardiovascular: Yes: S1, S2 Respiratory: Yes: CTA Bilaterally Gastrointestinal: Yes: Soft, Ascites Musculoskeletal: Yes: WNL Edema: LLE: 1+, RLE: 1+ Neurological: Yes: Oriented Psychiatric: Yes: Oriented Labs: CBC, BMP 08/25/19 14:58 INR, PTT INR 1.30 (0.83-1.09) H 08/21/19 09:10 Assessment/Plan Current Medications Generic Name Dose Route Start Last Admin Trade Name Freq PRN Reason Stop Dose Admin Carvedilol 25 mg 08/17/19 10:00 08/26/19 11:19 Coreg - PO 25 mg BID [facility] Administration Clonidine 0.2 mg 08/17/19 10:00 08/26/19 11:19 Catapres - PO 0.2 mg BID [facility] Administration Folic Acid 1 mg 08/17/19 10:00 08/26/19 11:18 Folic Acid - PO 1 mg DAILY [facility] Administration Furosemide 40 mg 08/23/19 13:00 08/26/19 11:18 Lasix - PO 40 mg DAILY [facility] Administration Hydralazine HCl 25 mg 08/17/19 14:00 08/26/19 06:42 Apresoline - PO Not Given TID [facility] Isosorbide Mononitrate 60 mg 08/17/19 10:00 08/26/19 11:18 Imdur - PO 60 mg DAILY [facility] Administration Nifedipine 60 mg 08/17/19 10:00 08/26/19 11:19 Procardia Xl - PO 60 mg BID [facility] Administration Spironolactone 50 mg 08/23/19 12:52 08/26/19 11:18 Aldactone - PO 50 mg DAILY [facility] Administration Thiamine HCl 100 mg 08/17/19 10:00 08/26/19 11:19 Vitamin B1 - PO 100 mg DAILY [facility] Administration Impression 1. CKD 2. CHF 3. ascites 4. bactermia 5. htn Plan - cont lasix and aldactone - renal function is improving - pt says he will follow with his legal researcher in [facility] on the - avoid nsaids - avoid nephrotoxins - renal diet
--- NOTE | 2019-08-26 15:12 | PN.GI ---
GI Progress Note Subjective: Pt seen/examined at bedside, asked by primary team to re-evaluate prior to dc planning and resuming plavix. Had drop in yesterday, responding to 1uprbc. Pts daughter at bedside. Pt feeling better, anxious to go home, denies abdominal pain, n/v. Tolerating po. Moving bowels, denies blood. State he had colonoscopy 1 year ago at [place], told he had ?polyps and advised GI follow up at that time, pts daughter states he has appt at [facility] on 09/12/19. - Objective Vital Signs: Vital Signs Temperature 98.1 F 08/26/19 09:45 Pulse Rate 59 L 08/26/19 09:45 Respiratory Rate 20 08/26/19 09:45 Blood Pressure 123/72 08/26/19 09:45 O2 Sat by Pulse Oximetry (%) 95 08/26/19 09:00 Constitutional: Well Nourished, No Distress, Calm Cardiovascular: Yes: WNL, Regular Rate and Rhythm Respiratory: Yes: WNL, Regular, CTA Bilaterally ...Palpate: Yes: Other (Abd soft, nt, nd) ...Rectal Exam: Yes: Other (Refused rectal exam) Labs: CBC, BMP 08/26/19 12:00 08/25/19 14:58 INR, PTT INR 1.30 (0.83-1.09) H 08/21/19 09:10 Problem List - Problems (1) Ascites Assessment/Plan: 69yo male h/o HTN, CHF, pacemaker, CKD presenting with ?syncopal episode with ascites s/p paracentesis with results not consistent with portal HTN/liver disease. No known prior h/o liver disease and LFTs are not elevated. Appears most likely secondary to underlying renal disease. -Diuretic regimen/further recommendations per renal -Would obtain peritoneal fluid cytology to further evaluate as previously noted Code(s): R18.8 - OTHER ASCITES Qualifiers: Ascites type: other type Qualified Code(s): R18.8 - Other ascites (2) Anemia Assessment/Plan: Normocytic anemia, iron studies appearing more consistent with AOCD. Asked to evaluate prior to resuming plavix with decline in Hb noted responding to prbc transfusion with no overt bleeding. Colonoscopy reported in 2018, no report available. Denies prior EGD. -Would first clarify indications for plavix from cardiac standpoint -If pt is to resume antiplatelets would recommend diagnostic EGD r/o underlying pathology that may place pt at increased risk of bleeding. Can tentatively plan for EGD tomorrow if optimized/cleared from cardiology. -Keep NPOpMN -Request primary team please obtain prior colonoscopy report from 2018 at [place] to determine findings/follow up intervals Discussed with medicine team Code(s): D64.9 - ANEMIA, UNSPECIFIED
[2019-08-27] MEDS: hydrALAZINE HCL 25 MG TABLET (FP) PO SCH ×4 (06:59→22:39)
[2019-08-27] MEDS: CARVEDILOL 25 MG TABLET (FP) PO SCH ×3 (10:07→22:39)
[2019-08-27] MEDS: SPIRONOLACTONE 25 MG TABLET (FP) PO SCH ×2 (10:07→10:13)
[2019-08-27] MEDS: cloNIDine HCL 0.1 MG TABLET PO SCH ×2 (10:11→22:39)
[2019-08-27] MEDS: FUROSEMIDE 40 MG TABLET (FP) PO SCH (10:11)
[2019-08-27] MEDS: ISOSORBIDE MONONITRATE 60 MG TAB.SR.24H (FP) PO SCH (10:11)
[2019-08-27] MEDS: FOLIC ACID 1 MG TABLET (FP) PO SCH (10:11)
[2019-08-27] MEDS: NIFEdipine E.R 60 MG TABLET (UD) PO SCH ×2 (10:12→22:39)
[2019-08-27] MEDS: THIAMINE HCL 100 MG TABLET (FP) PO SCH (10:12)
--- NOTE | 2019-08-27 11:53 | PN ---
Progress Note (short form) - Note Progress Note: Hospitalist Medicine Without complaint this AM. For paracentesis w/ cytology, and EGD today. Vitals 08/27/19 09:20 Temperature 98.4 F Pulse Rate 72 Respiratory 20 Rate Blood Pressure 111/79 Physical Exam general: well-appearing , resting. in NAD HEENT: NCAT, PERRLA neck: supple cardio: S1, S2 RRR. no r/m/g pulm: CTA B/l abdomen: soft, nontender, no guarding, or rigidity LE: 2+ pulses. no edema neuro: bale coverer 2-12 grossly intact Last Laboratory Tests (refused labs this AM) 08/26/19 12:00 WBC 8.8 Hgb 8.6 L Hct 25.8 L D Plt Count 424 Microbiology 08/22/19 11:12 Blood - Peripheral Venous Blood Culture - Final NO GROWTH AFTER 5 DAYS INCUBATION 08/22/19 11:05 Blood - Peripheral Venous Blood Culture - Final NO GROWTH AFTER 5 DAYS INCUBATION 08/21/19 15:30 Abdomen Gram Stain - Final 08/21/19 15:30 Abdomen Anaerobic Culture - Final NO GROWTH OF AEROBIC ORGANISMS AFTER 48 HOURS INCUBATION NO ANAEROBES WERE ISOLATED 08/21/19 15:30 Abdomen AFB Smear Concentration - Final 08/19/19 11:05 Blood - Peripheral Venous Blood Culture - Final NO GROWTH AFTER 5 DAYS INCUBATION 08/19/19 10:50 Blood - Peripheral Venous Blood Culture - Final NO GROWTH AFTER 5 DAYS INCUBATION 08/18/19 16:00 Stool Clostridioides difficile Antigen - Final 08/18/19 16:00 Stool Clostridioides difficile Toxin Assay - Final 08/21/19 15:30 Abdomen Mycobacterial Culture - Preliminary 08/21/19 15:30 Abdomen ELIER Preparation - Preliminary 08/21/19 15:30 Abdomen Fungal Culture - Preliminary Imaging 08/16/19: CXR: weak inspiration with atelectasis in R mid and lower lung field, prominent mediatinum , sclerotic knob and pacemaker. Soft tissues are intact. 08/21/19: carotid duplex: mild atherosclerotic dz with no evidence of hemodynamically sig stenoses. 08/21/19: renal and bladder sono: ascites, medical renal dz. no hydro or acute pathology. 08/22/19: CXR: since 08/16, atelectasis on R resolved. R line and L pacemaker persist. new ateletasis at L base. ECHO EF 60-65% PPM lead in RV LA mildly dilated mild MR mild to moderate mild AR small pericardial effusion < 1cm EKG: atrial-sensed ventricular rhythm, qtc 547ms - PACED Assessment/plan 69 y/o M with PMH HTN, CKD4, recent MSSA bacteremia on nafcillin, PPM, ascites, who presented for suspected syncopal event. Pt currently evaluated for syncopal event etiology as well as ascites mgmt. #Syncopal event -ECHO without acute abnormality; 60-65% EF, LA mild dilation, mild MR, TR mild-moderate , small pericardial effusion -cardio interrogating PPM -carotid duplex: w/o evidence of hem significant stenosis #Ascites -plavix held since 08/17, asa is held - restart when approved by GI -s/p dx and therapeutic paracentesis with IR (08/21) -para results not consistent w/ liver etiology. ?May be renal -repeat para (08/27), f/u cytology -c/w aldactone, started on lasix -refused CTAP -GI: Dr. Strong #Anemia/blood loss -unclear source; Hb 6.8 however w / adequate rise -per GI: for EGD tomorrow -call placed to [facility] records; procurement clerk sent request form awaiting fax for colonoscopy report 2018 #Recent MSSA bacteremia w/ PICC line -nafcillin has been d/c -repeat blood cx (-), PICC line removed (08/23) -ID: Dr. Panchal #Elevated BNP -ECHO done; result above -started on lasix -may need HD given CKD; may be difficult to remove fluid via lasix per cardio, pt has refused HD previously. still refusing #HTN- controlled hx PPM -c/w hydralazine, clonidine -c/w imdur, coreg -c/w procardia -asa and plavix are still held to be started when approved by GI -Cardio on board: Dr. Osorio #CKD4 -f/u renal, bladder sono #hx flagyl abx -has been d/c -d/w facility; was on d/t suspicion for c. diff however tested (-) x 2 (-) at our facility, will d/c #F/E/N not on ivf continue to follow suresh NPO for scope, advance after #ppx DVT: SCD's #Dispo cont'd monitoring PICC line removed repeat para with cytology done 08/27 for EGD tomorrow from [facility] <Morenita aBnuelos - Last Filed: 08/27/19 18:17> - Note Progress Note: Seen and examined; please see resident note for further information. Agree with above as documented aside from as supplemented by myself. Personally verified all omalley historical details, PE findings, as well as all labs, imaging, and diagnostics. Discussed at length with resident and indicated consultants. No further subjective findings. Scope tomorrow 10 sys ROS done and negative aside from HPI NAD, AAO, resting in bed NC AT EOMI PERRLA HR wnl, s1/2+ Lungs CTAB, w/ sym exp NT ND +BS CN2-12 wnl, no fnd Normal mood, appropriate behavior, average insight Trachea midline, no JVD Prior labs, weekend documentation reviewed. A/P: Patient presents with worsening CKD and fluid overload secondary to this with underlying HFpEF and is resistent to discussing treatment with HD in the future. Hemodynamics stable. Diuretic status noted. Nephro and CV continue to follow. Agree with problem list as documented above. Scope tomorrow. 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 Portal HTN, etc. considered. Resending a sample for cytology per GI recs) -Pending EGD (may resume antiplatelets when clear with GI) Full Code <Raji Purvis - Last Filed: 08/29/19 08:21>
--- NOTE | 2019-08-27 13:00 | PN ---
Progress Note (short form) - Note Progress Note: s: no chest pain, palps, dizziness, dyspnea. Feels nauseated. Current Medications Carvedilol (Coreg -) 25 mg PO BID [facility] Last Admin: 08/27/19 10:11 Dose: Not Given Clonidine (Catapres -) 0.2 mg PO BID [facility] Last Admin: 08/27/19 10:11 Dose: Not Given Folic Acid (Folic Acid -) 1 mg PO DAILY [facility] Last Admin: 08/27/19 10:11 Dose: Not Given Furosemide (Lasix -) 40 mg PO DAILY [facility] Last Admin: 08/27/19 10:11 Dose: Not Given Hydralazine HCl (Apresoline -) 25 mg PO TID [facility] Last Admin: 08/27/19 06:59 Dose: Not Given Isosorbide Mononitrate (Imdur -) 60 mg PO DAILY [facility] Last Admin: 08/27/19 10:11 Dose: Not Given Nifedipine (Procardia Xl -) 60 mg PO BID [facility] Last Admin: 08/27/19 10:12 Dose: Not Given Spironolactone (Aldactone -) 50 mg PO DAILY [facility] Last Admin: 08/27/19 10:13 Dose: Not Given Thiamine HCl (Vitamin B1 -) 100 mg PO DAILY [facility] Last Admin: 08/27/19 10:12 Dose: Not Given Vital Signs Period Temp Pulse Resp BP Sys/Ibanez Pulse Ox Last 24 Hr 97.6 F-98.5 F 60-72 18-20 93-111/61-79 95-95 Constitutional: Yes: Well Nourished, No Distress, Calm Neck: Yes: Thyromegaly Cardiovascular: Yes: Regular Rate and Rhythm, S1, S2. No: Gallop, Murmur Respiratory: Yes: Regular, CTA Bilaterally. No: Accessory Muscle Use, Rales, Wheezes Extremities: No: Cold Edema: No Neurological: Yes: Alert, Oriented Psychiatric: No: Agitated Assessment/Plan echo 08/2019 nl LV/RV function, PPM lead RV, LA mildly dilated, mild MR, mild TR , mild to mod aortic sclerosis, mild AR, sm pericardial effusion 69 yo AA male with CKD, HTN underlying liver disease, known PPM now s/p syncope Syncope: -Unclear etiology, occurred while sitting down -Non-orthostatic here -Tele continues to show nl pacer fxn throughout -attempted to arrange for device interrogation, however when pt demographics were provided to all manufacturers ([employer], [employer], [employer], [employer], [employer]), all denied having record of his device. -Implanted at [place] (2017 or 2018 per pt) -requires outpt cardio f/u to obtain records from [place] and arrange device check. given normal tele for 7 days now, this can be done as outpatient and is already arranged by dtr, per pt (see HPI) Acute diastolic HF: improved - s/p paracentesis, resume plavix when ok w/GI - cont lasix per renal - patient does not know why he is on plavix - denies hx of cardiac or peripheral stents - echo nl LV function - has advanced CKD and has been informed in the past about possible HD, however he has refused this HTN: -bp controlled -cont outpatient antihypertensive regimen Anemia, Preop - seen by GI, plan for endoscopy - have been holding plavix - as above, unclear indication for plavix - patient does not know why he is on it and has not seen a is consultant recently. no cardiac or peripheral stents in the last year - no cardiac contraindication to EGD - resume plavix when feasible per GI
--- NOTE | 2019-08-27 15:17 | PN ---
Progress Note (short form) - Note Progress Note: Still no clear reason why he is on plavix. Cleared by cardiology this afternoon and had paracentesis this afternoon. NPO after midnight for possible EGD 08/28. AM Labs ordered. Problem List - Problems (1) Ascites Code(s): R18.8 - OTHER ASCITES Qualifiers: Ascites type: other type Qualified Code(s): R18.8 - Other ascites
--- NOTE | 2019-08-27 18:06 | PN ---
Progress Note, Physician History of Present Illness: Pt seen and examined at bedside. He is awake and alert. He denies shortness of breath. - Current Medication List Current Medications: Active Medications Carvedilol (Coreg -) 25 mg PO BID [facility] Last Admin: 08/27/19 10:11 Dose: Not Given Clonidine (Catapres -) 0.2 mg PO BID [facility] Last Admin: 08/27/19 10:11 Dose: Not Given Folic Acid (Folic Acid -) 1 mg PO DAILY [facility] Last Admin: 08/27/19 10:11 Dose: Not Given Furosemide (Lasix -) 40 mg PO DAILY [facility] Last Admin: 08/27/19 10:11 Dose: Not Given Hydralazine HCl (Apresoline -) 25 mg PO TID [facility] Last Admin: 08/27/19 14:40 Dose: Not Given Isosorbide Mononitrate (Imdur -) 60 mg PO DAILY [facility] Last Admin: 08/27/19 10:11 Dose: Not Given Nifedipine (Procardia Xl -) 60 mg PO BID [facility] Last Admin: 08/27/19 10:12 Dose: Not Given Spironolactone (Aldactone -) 50 mg PO DAILY [facility] Last Admin: 08/27/19 10:13 Dose: Not Given Thiamine HCl (Vitamin B1 -) 100 mg PO DAILY [facility] Last Admin: 08/27/19 10:12 Dose: Not Given - Objective Vital Signs: Vital Signs Temperature 97.4 F L 08/27/19 14:18 Pulse Rate 68 08/27/19 14:18 Respiratory Rate 20 08/27/19 14:18 Blood Pressure 132/71 08/27/19 14:18 O2 Sat by Pulse Oximetry (%) 97 08/27/19 14:18 Constitutional: Yes: Calm Eyes: Yes: Conjunctiva Clear HENT: Yes: Atraumatic Cardiovascular: Yes: S1, S2 Respiratory: Yes: CTA Bilaterally Gastrointestinal: Yes: Normal Bowel Sounds, Soft, Ascites Musculoskeletal: Yes: WNL Edema: Yes Edema: LLE: 1+, RLE: 1+ Neurological: Yes: Oriented Psychiatric: Yes: Oriented Labs: CBC, BMP 08/26/19 12:00 08/25/19 14:58 INR, PTT INR 1.30 (0.83-1.09) H 08/21/19 09:10 Assessment/Plan Current Medications Generic Name Dose Route Start Last Admin Trade Name Freq PRN Reason Stop Dose Admin Carvedilol 25 mg 08/26/19 22:00 08/27/19 10:11 Coreg - PO Not Given BID [facility] Clonidine 0.2 mg 08/26/19 22:00 08/27/19 10:11 Catapres - PO Not Given BID [facility]MI[facility] Folic Acid 1 mg 08/27/19 10:00 08/27/19 10:11 Folic Acid - PO Not Given DAILY [facility] Furosemide 40 mg 08/27/19 10:00 08/27/19 10:11 Lasix - PO Not Given DAILY [facility] Hydralazine HCl 25 mg 08/26/19 22:00 08/27/19 14:40 Apresoline - PO Not Given TID [facility] Isosorbide Mononitrate 60 mg 08/27/19 10:00 08/27/19 10:11 Imdur - PO Not Given DAILY [facility] Nifedipine 60 mg 08/26/19 22:00 08/27/19 10:12 Procardia Xl - PO Not Given BID [facility] Spironolactone 50 mg 08/27/19 10:00 08/27/19 10:13 Aldactone - PO Not Given DAILY [facility] Thiamine HCl 100 mg 08/27/19 10:00 08/27/19 10:12 Vitamin B1 - PO Not Given DAILY [facility] Impression 1. CKD 2. CHF 3. ascites 4. bactermia 5. htn Plan - check cmp - renal function had been improving - GI workup in progress - monitor renal function - avoid nsaids - avoid nephrotoxins - renal diet
[2019-08-27] MEDS: PANTOPRAZOLE SODIUM 40 MG VIAL IVPUSH SCH (19:52)
[2019-08-28] MEDS: hydrALAZINE HCL 25 MG TABLET (FP) PO SCH ×3 (05:28→22:50)
[2019-08-28 10:22] LABS: HEMATOCRIT 26.3 % (35.4-49); HEMOGLOBIN 8.7 GM/dL (11.7-16.9); LYMPH % 13.2 % (8-40); MCH 29.9 pg (25.7-33.7); MCHC 33.2 g/dl (32.0-35.9); MEAN CELL VOLUME 90.2 fl (80-96); MEAN PLT VOLUME 7.2 fl (7.5-11.1); MONO % 7.9 % (3.8-10.2); NEUT % 66.9 % (42.8-82.8); PLATELET COUNT 421 K/MM3 (134-434); RBC 2.92 M/mm3 (4.00-5.60); RDW 17.3 % (11.9-15.9); WHITE BLOOD COUNT 7.2 K/mm3 (4.0-10.0)
[2019-08-28 10:37] LABS: ALBUMIN 1.2 g/dl (3.4-5.0); ALK PHOS 52 U/L (45-117); ANION GAP 7 MMOL/L (8-16); BILIRUBIN,TOTAL 0.3 mg/dL (0.2-1); BLOOD UREA NITROGEN 37.5 mg/dL (7-18); CALCIUM 7.6 mg/dL (8.5-10.1); CHLORIDE 119 mmol/L (98-107); CO2 20 mmol/L (21-32); CREATININE 2.9 mg/dL (0.55-1.3); GLUCOSE,RANDOM 70 mg/dL (74-106); MAGNESIUM 3.1 mg/dL (1.8-2.4); PHOSPHOROUS 5.1 mg/dL (2.5-4.9); POTASSIUM 4.1 mmol/L (3.5-5.1); SGOT/AST 7 U/L (15-37); SGPT/ALT < 6 U/L (13-61); SODIUM 146 mmol/L (136-145); TOT PROT 4.3 g/dl (6.4-8.2)
[2019-08-28 10:48] LABS: INR 1.09 (0.83-1.09); PROTHROMBIN TIME (PATIENT) 12.9 SEC (9.7-13.0)
[2019-08-28 10:51] LABS: ACTIVATED PTT 37.3 SECONDS (25.2-36.5)
[2019-08-28] MEDS ORDERED: ETOMIDATE 20 MG/10 ML AMPUL IVPUSH ONE (11:40)
--- NOTE | 2019-08-28 11:40 | PN ---
Progress Note (short form) - Note Progress Note: s: no chest pain, palps, dizziness, dyspnea. Current Medications Carvedilol (Coreg -) 25 mg PO BID [facility] Last Admin: 08/27/19 22:39 Dose: 25 mg Clonidine (Catapres -) 0.2 mg PO BID [facility] Last Admin: 08/27/19 22:39 Dose: 0.2 mg Folic Acid (Folic Acid -) 1 mg PO DAILY [facility] Last Admin: 08/27/19 10:11 Dose: Not Given Furosemide (Lasix -) 40 mg PO DAILY [facility] Last Admin: 08/27/19 10:11 Dose: Not Given Hydralazine HCl (Apresoline -) 25 mg PO TID [facility] Last Admin: 08/28/19 05:28 Dose: Not Given Isosorbide Mononitrate (Imdur -) 60 mg PO DAILY [facility] Last Admin: 08/27/19 10:11 Dose: Not Given Nifedipine (Procardia Xl -) 60 mg PO BID [facility] Last Admin: 08/27/19 22:39 Dose: 60 mg Pantoprazole Sodium (Protonix Iv) 40 mg IVPUSH DAILY [facility] Last Admin: 08/27/19 19:52 Dose: 40 mg Spironolactone (Aldactone -) 50 mg PO DAILY [facility] Last Admin: 08/27/19 10:13 Dose: Not Given Thiamine HCl (Vitamin B1 -) 100 mg PO DAILY [facility] Last Admin: 08/27/19 10:12 Dose: Not Given Vital Signs Period Temp Pulse Resp BP Sys/Ibanez Pulse Ox Last 24 Hr 97.4 F-98.9 F 60-86 18-20 122-148/71-79 97-99 Constitutional: Yes: Well Nourished, No Distress, Calm Neck: Yes: Thyromegaly Cardiovascular: Yes: Regular Rate and Rhythm, S1, S2. No: Gallop, Murmur Respiratory: Yes: Regular, CTA Bilaterally. No: Accessory Muscle Use, Rales, Wheezes Extremities: No: Cold Edema: No Neurological: Yes: Alert, Oriented Psychiatric: No: Agitated no jaundice, diaphoresis Assessment/Plan echo 08/2019 nl LV/RV function, PPM lead RV, LA mildly dilated, mild MR, mild TR , mild to mod aortic sclerosis, mild AR, sm pericardial effusion 69 yo AA male with CKD, HTN underlying liver disease, known PPM now s/p syncope Syncope: -Unclear etiology, occurred while sitting down -Non-orthostatic here -Tele continues to show nl pacer fxn throughout -attempted to arrange for device interrogation, however when pt demographics were provided to all manufacturers ([employer], [employer], [employer], [employer], [employer]), all denied having record of his device. -Implanted at [place] (2017 or 2018 per pt) -requires outpt cardio f/u to obtain records from [place] and arrange device check. given normal tele for 7 days now, this can be done as outpatient and is already arranged by dtr, per pt Acute diastolic HF: improved - s/p paracentesis, resume plavix when ok w/GI - cont lasix per renal - patient does not know why he is on plavix - denies hx of cardiac or peripheral stents - echo nl LV function - has advanced CKD and has been informed in the past about possible HD, however he has refused this HTN: -bp controlled -cont outpatient antihypertensive regimen Anemia, Preop - seen by GI, plan for endoscopy - have been holding plavix - as above, unclear indication for plavix - patient does not know why he is on it and has not seen a water hauler recently. no cardiac or peripheral stents in the last year - no cardiac contraindication to EGD - resume plavix when feasible per GI
--- NOTE | 2019-08-28 12:12 | PN ---
Progress Note, Physician History of Present Illness: Pt seen and examined at bedside. he denies shortness of breath. - Current Medication List Current Medications: Active Medications Carvedilol (Coreg -) 25 mg PO BID [facility] Last Admin: 08/27/19 22:39 Dose: 25 mg Clonidine (Catapres -) 0.2 mg PO BID [facility] Last Admin: 08/27/19 22:39 Dose: 0.2 mg Folic Acid (Folic Acid -) 1 mg PO DAILY [facility] Last Admin: 08/27/19 10:11 Dose: Not Given Furosemide (Lasix -) 40 mg PO DAILY [facility] Last Admin: 08/27/19 10:11 Dose: Not Given Hydralazine HCl (Apresoline -) 25 mg PO TID [facility] Last Admin: 08/28/19 05:28 Dose: Not Given Isosorbide Mononitrate (Imdur -) 60 mg PO DAILY [facility] Last Admin: 08/27/19 10:11 Dose: Not Given Nifedipine (Procardia Xl -) 60 mg PO BID [facility] Last Admin: 08/27/19 22:39 Dose: 60 mg Pantoprazole Sodium (Protonix Iv) 40 mg IVPUSH DAILY [facility] Last Admin: 08/27/19 19:52 Dose: 40 mg Spironolactone (Aldactone -) 50 mg PO DAILY [facility] Last Admin: 08/27/19 10:13 Dose: Not Given Thiamine HCl (Vitamin B1 -) 100 mg PO DAILY [facility] Last Admin: 08/27/19 10:12 Dose: Not Given - Objective Vital Signs: Vital Signs Temperature 98.5 F 08/28/19 06:00 Pulse Rate 60 08/28/19 11:00 Respiratory Rate 18 08/28/19 11:00 Blood Pressure 122/76 08/28/19 11:00 O2 Sat by Pulse Oximetry (%) 99 08/28/19 09:00 Constitutional: Yes: Calm Eyes: Yes: Conjunctiva Clear HENT: Yes: Atraumatic Cardiovascular: Yes: S1, S2 Respiratory: Yes: CTA Bilaterally Gastrointestinal: Yes: Soft, Ascites Genitourinary: Yes: WNL Musculoskeletal: Yes: WNL Edema: LLE: Trace, RLE: Trace Neurological: Yes: Oriented Psychiatric: Yes: Oriented Labs: CBC, BMP 08/28/19 09:00 08/28/19 09:00 INR, PTT INR 1.09 (0.83-1.09) 08/28/19 09:00 Assessment/Plan Current Medications Generic Name Dose Route Start Last Admin Trade Name Renan PRN Reason Stop Dose Admin Carvedilol 25 mg 08/26/19 22:00 08/27/19 22:39 Coreg - PO 25 mg BID [facility] Administration Clonidine 0.2 mg 08/26/19 22:00 08/27/19 22:39 Catapres - PO 0.2 mg BID [facility] Administration Folic Acid 1 mg 08/27/19 10:00 08/27/19 10:11 Folic Acid - PO Not Given DAILY [facility] Furosemide 40 mg 08/27/19 10:00 08/27/19 10:11 Lasix - PO Not Given DAILY [facility] Hydralazine HCl 25 mg 08/26/19 22:00 08/28/19 05:28 Apresoline - PO Not Given TID [facility] Isosorbide Mononitrate 60 mg 08/27/19 10:00 08/27/19 10:11 Imdur - PO Not Given DAILY [facility] Nifedipine 60 mg 08/26/19 22:00 08/27/19 22:39 Procardia Xl - PO 60 mg BID [facility] Administration Pantoprazole Sodium 40 mg 08/27/19 19:00 08/27/19 19:52 Protonix Iv IVPUSH 40 mg DAILY [facility] Administration Spironolactone 50 mg 08/27/19 10:00 08/27/19 10:13 Aldactone - PO Not Given DAILY [facility] Thiamine HCl 100 mg 08/27/19 10:00 08/27/19 10:12 Vitamin B1 - PO Not Given DAILY [facility] Impression 1. CKD with BUFFY 2. CHF 3. ascites 4. bactermia 5. htn Plan - renal function is improving - can hold of lasix - repeat labs in am - GI workup in progress - cont to monitor and trend umbrella tipper hand
[2019-08-28] MEDS: FUROSEMIDE 40 MG TABLET (FP) PO SCH (12:38)
--- NOTE | 2019-08-28 12:45 | PN ---
Progress Note (short form) - Note Progress Note: EGD performed today revealing antral erythema with slight nodular appearance and thickened duodenal folds with punctate ulcerations. No high risk stigmata. Biopsies taken. See scanned endoscopy report. Recommendations: -Resume clear liquid diet -Follow up pathology results -PPI daily -While small ulcerations seen and no high risk stigmata, would clarify need and risks/benefits for antiplatelet therapies as this would place pt at increased risk of bleeding. If deemed indicated recommend continue PPI therapy. -Avoid nonessential NSAIDs Discussed with pt after the procedure. Problem List - Problems (1) Ascites Code(s): R18.8 - OTHER ASCITES Qualifiers: Ascites type: other type Qualified Code(s): R18.8 - Other ascites (2) Anemia Code(s): D64.9 - ANEMIA, UNSPECIFIED
--- NOTE | 2019-08-28 13:22 | PN ---
Progress Note (short form) - Note Progress Note: Hospitalist Medicine s/p EGD. without complaint, resting in bed . Case d/w daughter over phone . All questions answered Vitals 08/28/19 08/28/19 12:45 13:00 Temperature 97.9 F Pulse Rate 63 Respiratory 16 Rate Blood Pressure 119/70 Physical Exam general: well-appearing , resting. in NAD HEENT: NCAT, PERRLA neck: supple cardio: S1, S2 RRR. no r/m/g pulm: CTA B/l abdomen: soft, nontender, no guarding, or rigidity LE: 2+ pulses. 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 Labs 08/28/19 08/28/19 09:00 09:00 WBC 7.2 Hgb 8.7 L Hct 26.3 L Plt Count 421 Sodium 146 H Potassium 4.1 Chloride 119 H Carbon Dioxide 20 L BUN 37.5 H Creatinine 2.9 H Random Glucose 70 L Total Protein 4.3 L Albumin 1.2 L Microbiology 08/22/19 11:12 Blood - Peripheral Venous Blood Culture - Final NO GROWTH AFTER 5 DAYS INCUBATION 08/22/19 11:05 Blood - Peripheral Venous Blood Culture - Final NO GROWTH AFTER 5 DAYS INCUBATION 08/21/19 15:30 Abdomen Gram Stain - Final 08/21/19 15:30 Abdomen Anaerobic Culture - Final NO GROWTH OF AEROBIC ORGANISMS AFTER 48 HOURS INCUBATION NO ANAEROBES WERE ISOLATED 08/21/19 15:30 Abdomen AFB Smear Concentration - Final 08/19/19 11:05 Blood - Peripheral Venous Blood Culture - Final NO GROWTH AFTER 5 DAYS INCUBATION 08/19/19 10:50 Blood - Peripheral Venous Blood Culture - Final NO GROWTH AFTER 5 DAYS INCUBATION 08/18/19 16:00 Stool Clostridioides difficile Antigen - Final 08/18/19 16:00 Stool Clostridioides difficile Toxin Assay - Final 08/21/19 15:30 Abdomen Mycobacterial Culture - Preliminary 08/21/19 15:30 Abdomen ELIER Preparation - Preliminary 08/21/19 15:30 Abdomen Fungal Culture - Preliminary Imaging 08/16/19: CXR: weak inspiration with atelectasis in R mid and lower lung field, prominent mediatinum , sclerotic knob and pacemaker. Soft tissues are intact. 08/21/19: carotid duplex: mild atherosclerotic dz with no evidence of hemodynamically sig stenoses. 08/21/19: renal and bladder sono: ascites, medical renal dz. no hydro or acute pathology. 08/22/19: CXR: since 08/16, atelectasis on R resolved. R line and L pacemaker persist. new ateletasis at L base. ECHO EF 60-65% PPM lead in RV LA mildly dilated mild MR mild to moderate mild AR small pericardial effusion < 1cm EKG: atrial-sensed ventricular rhythm, qtc 547ms - PACED EGD report: antral erythema with slight nodular appearance and thickened duodenal folds with punctate ulcerations. No high risk stigmata. Biopsies taken. Assessment/plan 69 y/o M with PMH HTN, CKD4, recent MSSA bacteremia on nafcillin, PPM, ascites, who presented for suspected syncopal event. Pt currently evaluated for syncopal event etiology as well as ascites mgmt. #Syncopal event -ECHO without acute abnormality; 60-65% EF, LA mild dilation, mild MR, TR mild-moderate , small pericardial effusion -cardio interrogating PPM; will need cont outpt f/u -carotid duplex: w/o evidence of hem significant stenosis #Ascites -plavix held since 08/17, asa is held - restart when approved by GI -d/w daughter and pt at length, does not know indication -s/p dx and therapeutic paracentesis with IR (08/21) -para results not consistent w/ liver etiology. ?May be renal -repeat para (08/27), f/u cytology -c/w aldactone, started on lasix -refused CTAP -GI: Dr. Strong #Anemia/blood loss -unclear source; Hb 6.8 however w / adequate rise -s/p EGD: antral erythema with slight nodular appearance and thickened duodenal folds with punctate ulcerations -call placed to [place] [facility] records; warrant clerk sent request form awaiting fax for colonoscopy report 2018 -c/w protonix -need to weigh risks vs. benefits of a/c on d/c #Recent MSSA bacteremia w/ PICC line -nafcillin has been d/c -repeat blood cx (-), PICC line removed (08/23) -ID: Dr. Panchal #Elevated BNP -ECHO done; result above -started on lasix -may need HD given CKD; may be difficult to remove fluid via lasix per cardio, pt has refused HD previously. still refusing #HTN- controlled hx PPM -c/w hydralazine, clonidine -c/w imdur, coreg -c/w procardia -asa and plavix are still held to be started when approved by GI need to weigh risks vs. benefits given recent EGD -Cardio on board: Dr. Osorio #CKD4 -renal, bladder sono; confirms medical renal dz #hx flagyl abx -has been d/c -d/w facility; was on d/t suspicion for c. diff however tested (-) x 2 (-) at our facility, will d/c #F/E/N not on ivf continue to follow lytes clear liq diet, adv per GI #ppx DVT: SCD's #Dispo cont'd monitoring PICC line removed repeat para with cytology done 08/27 from [facility], however will go home w/ daughter - for pickup 08/29 <Morenita Banuelos - Last Filed: 08/28/19 17:05> - Note Progress Note: Seen and examined; please see resident note for further information. Agree with above as documented aside from as supplemented by myself. Personally verified all omalley historical details, PE findings, as well as all labs, imaging, and diagnostics. Discussed at length with resident and indicated consultants. No further subjective findings. Report pending but it was communicated to me that there were no significant endoscopic findings. Still no understanding why on antiplatelets and he is resistent to conversation regarding this. 10 sys ROS done and negative aside from HPI *Would not permit exam. Told me in a not polite way to leave him alone. Prior labs, weekend documentation reviewed. A/P: Patient presents with worsening CKD and fluid overload secondary to this with underlying HFpEF and is resistent to discussing treatment with HD in the future. Hemodynamics stable. Diuretic status noted. Nephro and CV continue to follow. Agree with problem list as documented above. Scope report pending; continue 40mg PO. Unclear why on antiplatelets and patient and daughter do not know and CV couldn't find corroborating records. 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
[2019-08-28] MEDS: cloNIDine HCL 0.1 MG TABLET PO SCH ×2 (15:51→23:14)
[2019-08-28] MEDS: CARVEDILOL 25 MG TABLET (FP) PO SCH ×2 (15:51→23:14)
[2019-08-28] MEDS: NIFEdipine E.R 60 MG TABLET (UD) PO SCH ×2 (15:52→23:14)
[2019-08-28] MEDS: SPIRONOLACTONE 25 MG TABLET (FP) PO SCH (16:00)
[2019-08-28] MEDS: THIAMINE HCL 100 MG TABLET (FP) PO SCH (16:00)
[2019-08-28] MEDS: FOLIC ACID 1 MG TABLET (FP) PO SCH (16:00)
[2019-08-28] MEDS: ISOSORBIDE MONONITRATE 60 MG TAB.SR.24H (FP) PO SCH (16:00)
--- NOTE | 2019-08-28 18:09 | PATH ---
Cytology Non-Gynecological Report Patient Name: ALEKSANDRA PABLO [facility]. Rec. #: [id number] /Age/Gender: 1950 (Age: 69) / M Account: [id number] Location: EMERGENCY ROOM Taken: 08/21/2019 Received: 08/23/2019 Reported: 08/28/2019 Physicians: Vitaliy De Anda M.D. Specimen(s) Received A: PERITONEAL FLUID IN 50% ALCOHOL B: PERITONEAL FLUID 7000CC FRESH Clinical History Ascites Final Diagnosis A AND B: ABDOMINAL FLUID, PARACENTESIS: SATISFACTORY FOR EVALUATION BENIGN (NO MALIGNANT CELLS IDENTIFIED) MESOTHELIAL CELLS AND MACROPHAGES PRESENT. Electronically Signed Preston Barahona M.D. Gross Description A. Approximately 60cc of yellow fluid received fixed in 50% alcohol. One cytospin and one cellblock prepared. B. Approximately 7000cc of yellow fluid received fresh. One cytospin and one cellblock prepared.
[2019-08-28] MEDS: PANTOPRAZOLE SODIUM 40 MG VIAL IVPUSH SCH (19:57)
[2019-08-29] MEDS: hydrALAZINE HCL 25 MG TABLET (FP) PO SCH ×2 (07:02→14:33)
[2019-08-29 08:27] VITALS: TEMP 98.5
[2019-08-29] MEDS: PANTOPRAZOLE SODIUM 40 MG VIAL IVPUSH SCH (11:06)
[2019-08-29] MEDS: NIFEdipine E.R 60 MG TABLET (UD) PO SCH (11:06)
[2019-08-29] MEDS: cloNIDine HCL 0.1 MG TABLET PO SCH (11:06)
[2019-08-29] MEDS: FOLIC ACID 1 MG TABLET (FP) PO SCH (11:06)
[2019-08-29] MEDS: CARVEDILOL 25 MG TABLET (FP) PO SCH (11:07)
[2019-08-29] MEDS: ISOSORBIDE MONONITRATE 60 MG TAB.SR.24H (FP) PO SCH (11:09)
[2019-08-29] MEDS: THIAMINE HCL 100 MG TABLET (FP) PO SCH (11:09)
[2019-08-29] MEDS: SPIRONOLACTONE 25 MG TABLET (FP) PO SCH (11:09)
[2019-08-29 11:23] VITALS: BP 136/75; PULSE 69
--- NOTE | 2019-08-29 14:33 | PN.GI ---
GI Progress Note Subjective: coverage for Dr Garcia no melena, Hgb 8.7, tolerating diet EGD--pinpoint duodenal ulcers - Objective Vital Signs: Vital Signs Temperature 98.5 F 08/28/19 21:00 Pulse Rate 69 08/29/19 10:00 Respiratory Rate 18 08/29/19 10:00 Blood Pressure 136/75 08/29/19 10:00 O2 Sat by Pulse Oximetry (%) 95 08/29/19 09:00 Constitutional: Well Nourished Eyes: Yes: Conjunctiva Clear HENT: Yes: Atraumatic Neck: Yes: Supple Cardiovascular: Yes: Regular Rate and Rhythm Respiratory: Yes: CTA Bilaterally Gastrointestinal Inspection: Yes: Ascites (--mild) ...Palpate: Yes: Soft. No: Firm/Rigid, Guarding, Hepatomegaly, Mass, Pulsatile Mass, Splenomegaly, Tenderness, Tenderness, Epigastium Labs: CBC, BMP 08/28/19 09:00 08/28/19 09:00 INR, PTT INR 1.09 (0.83-1.09) 08/28/19 09:00 Problem List - Problems (1) Ascites Code(s): R18.8 - OTHER ASCITES Qualifiers: Ascites type: other type Qualified Code(s): R18.8 - Other ascites (2) Anemia Assessment/Plan: duodenal ulcers R> continue PPI check for H pylori and treat accordingly Code(s): D64.9 - ANEMIA, UNSPECIFIED
--- NOTE | 2019-08-29 15:43 | DS ---
Physical Exam: SUBJECTIVE: Patient seen and examined at bedside. States that he feels well. OBJECTIVE: Vital Signs Period Temp Pulse Resp BP Sys/Ibanez Pulse Ox Last 24 Hr 98.5 F 69-86 18-18 134-136/66-75 95-95 Physical Exam general: well-appearing , resting. in NAD HEENT: NCAT, PERRLA neck: supple cardio: S1, S2 RRR. no r/m/g pulm: CTA B/l. no accessory m usage abdomen: soft, nontender, no guarding, or rigidity LE: 2+ pulses. 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 LABS Laboratory Results - last 24 hr 08/25/19 17:59 Blood Type A POSITIVE Antibody Screen Negative Crossmatch See Detail 08/16/19 08/17/19 08/21/19 15:47 06:00 09:10 WBC 7.9 6.8 6.9 Hgb 7.2 L 8.0 L 8.7 L Hct 21.9 L 23.9 L 25.9 L Plt Count 458 H 500 H 562 H 08/22/19 08/25/19 08/26/19 11:05 14:58 12:00 WBC 7.5 6.9 8.8 Hgb 8.3 L 6.8 L* 8.6 L Hct 25.3 L 21.0 L D 25.8 L D Plt Count 501 H 424 08/28/19 09:00 WBC 7.2 Hgb 8.7 L Hct 26.3 L Plt Count 421 08/16/19 08/21/19 08/28/19 15:47 09:10 09:00 PT with INR 15.60 H 15.40 H 12.90 INR 1.32 H 1.30 H 1.09 08/16/19 08/16/19 08/17/19 15:46 15:46 06:00 Sodium Potassium Chloride Carbon Dioxide Anion Gap 11 BUN 39.7 H 40.9 H Creatinine 5.4 H 5.3 H Random Glucose 144 H Calcium 7.1 L Total Bilirubin AST 7 L ALT < 6 L B-Natriuretic Peptide 1939.1 H Total Protein Albumin Vitamin B12 1022 H Serum Folate 24 H 08/19/19 08/20/19 08/21/19 14:26 15:35 09:10 Sodium 142 144 142 Potassium 3.3 L 3.4 L 3.4 L Chloride 113 H 114 H 114 H Carbon Dioxide 22 19 L 19 L Anion Gap BUN 40.5 H 40.6 H 42.8 H Creatinine 5.1 H 5.1 H 4.9 H Random Glucose Calcium 7.0 L 7.7 L 7.7 L Total Bilirubin 0.6 0.7 AST 9 L 8 L 7 L ALT < 6 L < 6 L < 6 L B-Natriuretic Peptide Total Protein 4.7 L 4.9 L 5.3 L Albumin 1.2 L 1.3 L 1.4 L Vitamin B12 Serum Folate 08/22/19 08/25/19 08/28/19 11:05 14:58 09:00 Sodium 142 140 146 H Potassium 3.8 4.1 4.1 Chloride 114 H Carbon Dioxide 21 22 20 L Anion Gap BUN 43.8 H 35.8 H 37.5 H Creatinine 4.1 H 3.1 H 2.9 H Random Glucose Calcium 7.3 L 7.0 L 7.6 L Total Bilirubin 0.5 0.3 0.3 AST 9 L 7 L 7 L ALT < 6 L < 6 L < 6 L B-Natriuretic Peptide Total Protein 4.6 L 4.2 L 4.3 L Albumin 1.2 L 1.1 L 1.2 L Vitamin B12 Serum Folate Laboratory Tests 08/17/19 08/17/19 08/17/19 08:30 08:30 08:30 Urine Color Dk yellow Urine Appearance Turbid Urine pH 5.0 Ur Specific [place] 1.019 Urine Protein 3+ H Urine Glucose (UA) Negative Urine Ketones Trace H Urine Blood 3+ H Urine Nitrite Negative Urine Bilirubin Negative Urine Urobilinogen 0.2 Ur Leukocyte Esterase 1+ H Urine WBC (Auto) 53 Urine RBC (Auto) 211 Urine Casts (Auto) 50 U Pathogenic Cast Auto Positive U Epithel Cells (Auto) 6.6 Urine Bacteria (Auto) 1.7 Ur Random Creatinine 292.0 H Ur Random Sodium 28 L Ur Random Potassium 31.0 Ur Random Chloride 15 L Ur Random Urea Nitrogn 08/17/19 08:30 Urine Color Urine Appearance Urine pH Ur Specific [place] Urine Protein Urine Glucose (UA) Urine Ketones Urine Blood Urine Nitrite Urine Bilirubin Urine Urobilinogen Ur Leukocyte Esterase Urine WBC (Auto) Urine RBC (Auto) Urine Casts (Auto) U Pathogenic Cast Auto U Epithel Cells (Auto) Urine Bacteria (Auto) Ur Random Creatinine Ur Random Sodium Ur Random Potassium Ur Random Chloride Ur Random Urea Nitrogn 405 Microbiology 08/22/19 11:12 Blood - Peripheral Venous Blood Culture - Final NO GROWTH AFTER 5 DAYS INCUBATION 08/22/19 11:05 Blood - Peripheral Venous Blood Culture - Final NO GROWTH AFTER 5 DAYS INCUBATION 08/21/19 15:30 Abdomen Gram Stain - Final 08/21/19 15:30 Abdomen Anaerobic Culture - Final NO GROWTH OF AEROBIC ORGANISMS AFTER 48 HOURS INCUBATION NO ANAEROBES WERE ISOLATED 08/21/19 15:30 Abdomen AFB Smear Concentration - Final 08/19/19 11:05 Blood - Peripheral Venous Blood Culture - Final NO GROWTH AFTER 5 DAYS INCUBATION 08/19/19 10:50 Blood - Peripheral Venous Blood Culture - Final NO GROWTH AFTER 5 DAYS INCUBATION 08/18/19 16:00 Stool Clostridioides difficile Antigen - Final 08/18/19 16:00 Stool Clostridioides difficile Toxin Assay - Final 08/21/19 15:30 Abdomen Mycobacterial Culture - Preliminary 08/21/19 15:30 Abdomen ELIER Preparation - Preliminary 08/21/19 15:30 Abdomen Fungal Culture - Preliminary Imaging 08/16/19: CXR: weak inspiration with atelectasis in R mid and lower lung field, prominent mediatinum , sclerotic knob and pacemaker. Soft tissues are intact. 08/21/19: carotid duplex: mild atherosclerotic dz with no evidence of hemodynamically sig stenoses. 08/21/19: renal and bladder sono: ascites, medical renal dz. no hydro or acute pathology. 08/22/19: CXR: since 08/16, atelectasis on R resolved. R line and L pacemaker persist. new ateletasis at L base. ECHO EF 60-65% PPM lead in RV LA mildly dilated mild MR mild to moderate mild AR small pericardial effusion < 1cm EKG: atrial-sensed ventricular rhythm, qtc 547ms - PACED EGD report: antral erythema with slight nodular appearance and thickened duodenal folds with punctate ulcerations. No high risk stigmata. Biopsies taken. HOSPITAL COURSE: Date of Admission:08/16/19 Date of Discharge: 08/29/19 Initial admit diagnosis: Syncope 69 y/o M with PMH HTN, CKD4, recent MSSA bacteremia on nafcillin, PPM, ascites, who presented for suspected syncopal event. Pt was evaluated for syncopal event etiology as well as ascites mgmt. #Syncopal event -ECHO without acute abnormality; 60-65% EF, LA mild dilation, mild MR, TR mild-moderate , small pericardial effusion -cardio interrogating PPM; will need cont outpt f/u -carotid duplex: w/o evidence of hem significant stenosis #Ascites -plavix held since 08/17, asa held; still held on d/c as pt does not know indication and risks > benefits per GI -d/w daughter and pt at length, does not know indication -s/p dx and therapeutic paracentesis with IR (08/21) -para results not consistent w/ liver etiology. ?May be renal -repeat para (08/27), repeat cytology (-) -c/w aldactone, started on lasix -refused CTAP #Anemia/blood loss -unclear source; Hb 6.8 however w / adequate rise -s/p EGD: antral erythema with slight nodular appearance and thickened duodenal folds with punctate ulcerations -call placed to [facility] medical records; creel clerk sent request form awaiting fax for colonoscopy report 2017 -c/w protonix #Recent MSSA bacteremia w/ PICC line -on admission, pt with past hx MSSA bacteremia, was on nafcillin -nafcillin has been d/c, since repeat blood cx (-) -PICC line removed (08/23) #Elevated BNP -ECHO done; result above -started on lasix. to continue as outpatient -may need HD given CKD; may be difficult to remove fluid via lasix per cardio, pt has refused HD previously. still refusing #HTN- controlled hx PPM -c/w hydralazine, clonidine -c/w imdur, coreg -c/w procardia -asa and plavix are still held to be started when approved by GI need to weigh risks vs. benefits given recent EGD. sent home not on discussed with patient and daughter at length -needs close cardio f/u -Cardio on board: Dr. Osorio #CKD4 -renal, bladder sono; confirms medical renal dz #hx flagyl abx -has been d/c -d/w facility; was on d/t suspicion for c. diff however tested (-) x 2 (-) at our facility, will d/c Minutes to complete discharge: 55 <Lakisha,Morenita - Last Filed: 08/29/19 15:47> Physical Exam: SUBJECTIVE: Patient seen and examined OBJECTIVE: PHYSICAL EXAM GENERAL: The patient is awake, alert, and fully oriented, in no acute distress. HEAD: Normal with no signs of trauma. EYES: PERRL, extraocular movements intact, sclera anicteric, conjunctiva clear. ENT: Ears normal, nares patent, oropharynx clear without exudates, moist mucous membranes. NECK: Trachea midline, full range of motion, supple. LUNGS: Breath sounds equal, clear to auscultation bilaterally, no wheezes, no crackles, no accessory muscle use. HEART: Regular rate and rhythm, S1, S2 without murmur, rub or gallop. ABDOMEN: Soft, nontender, nondistended, normoactive bowel sounds, no guarding, no rebound, no hepatosplenomegaly, no masses. EXTREMITIES: 2+ pulses, warm, well-perfused, no edema. NEUROLOGICAL: Cranial nerves II through XII grossly intact. Normal speech, gait not observed. PSYCH: Normal mood, normal affect. SKIN: Warm, dry, normal turgor, no rashes or lesions noted. LABS HOSPITAL COURSE: Date of Admission:08/16/19 Date of Discharge: 09/30/19 <Raji Purvis - Last Filed: 09/30/19 05:42> Discharge Summary Problems reviewed: Yes Reason For Visit: SYNCOPE - Home Medications Comprehensive Discharge Medication List: Ambulatory Orders Carvedilol [Coreg -] 25 mg PO BID 08/16/19 Clonidine HCl 0.2 mg PO [id number] 08/16/19 Folic Acid 1 mg PO DAILY 08/16/19 Hydralazine HCl 25 mg PO TID 08/16/19 Isosorbide Mononitrate [Isosorbide Mononitrate ER] 60 mg PO DAILY 08/16/19 Nifedipine ER [Procardia XL -] 60 mg PO BID 08/16/19 Spironolactone 25 mg PO DAILY 08/16/19 Thiamine HCl [B-1] 100 mg PO DAILY 08/16/19 Furosemide [Lasix] 40 mg PO DAILY #30 tablet 08/29/19 Pantoprazole Sodium [Protonix] 40 mg PO DAILY #30 tablet. 08/29/19 <Morenita Banuelos - Last Filed: 08/29/19 15:47> Problems reviewed: Yes - Home Medications Comprehensive Discharge Medication List: Ambulatory Orders Folic Acid 1 mg PO DAILY 08/16/19 Hydralazine HCl 25 mg PO TID 08/16/19 Nifedipine ER [Procardia XL -] 60 mg PO BID 08/16/19 Furosemide [Lasix] 40 mg PO DAILY #30 tablet 08/29/19 Pantoprazole Sodium [Protonix] 40 mg PO DAILY #30 tablet. 08/29/19 Carvedilol [Coreg -] 25 mg PO BID #60 tablet 08/30/19 Folic Acid - 1 mg PO DAILY #30 tablet 08/30/19 Isosorbide Mononitrate [Isosorbide Mononitrate ER] 60 mg PO DAILY #30 tab.er.24h 08/30/19 Spironolactone 25 mg PO DAILY #30 tablet 08/30/19 Thiamine HCl [B-1] 100 mg PO DAILY #30 tablet 08/30/19 cloNIDine HCL [Catapres -] 0.2 mg PO BID #60 tablet 08/30/19 hydrALAZINE HCL [Apresoline -] 25 mg PO TID #90 tablet 08/30/19 <Raji Purvis - Last Filed: 09/30/19 05:42> Condition: Improved - Instructions Diet, Activity, Other Instructions: You were in the hospital because you passed out. You had testing done to determine the cause. Your ECHO (picture of you heart) was normal, and the heart doctor is still working on checking to see if you have a problem with your pacemaker. You will continue to follow up with a dive superintendent as an outpatient. You also had a picture taken of your neck vessels (carotid duplex) this did not show any narrowing of your vessels. While you were here, you also had fluid in your abdomen. This was drained twice and the initial pathology report shows that it is not cancerous. You will need continued follow up with a GI doctor, in case you need further taps (fluid removal). You will also need to follow with a GI doctor because you had anemia in the hospital and required a blood transfusion. You had an EGD (upper endoscopy) which showed some ulcerations and redness in your stomach and duodenum (small intestine). Your PICC (peripheral line) in your arm was removed during your stay and your antibiotics for your blood infection were discontinued, since your infection cleared. You were also found to have fluid on your body (and heart) called CHF ( congestive heart failure) and you were started on a water pill in the hospital. Medications 1. You were started on a new water pill called lasix. You must take 40mg (1 pill ) daily and follow up with your dive superintendent. 2. You were also started on a new acid suppressant pill after your GI procedure called protonix. You must take 40mg (1 pill) daily 3. very important! Your aspirin and plavix are being held. Please see your dive superintendent, primary care doctor, GI doctor this week to determine whether you still need to be on these pills. Right now the risks outweigh the benefits of continuing these medications, after your EGD (GI procedure). You must follow up. This is very important. 4. The medication called Flagyl was discontinued. You do not need to take this because you do not have an infection currently. 5. You may continue your other home medications, but note the above changes that are listed. Follow-up appointments We recommend follow up with the following physicians upon your discharge to discuss a plan going forward: -Dr. Barajas, a primary care doctor on 09/02/2019 to establish care -Dr. Osorio, the dive superintendent who saw you in the hospital - this week -Dr. Vidal, the aerial advertiser (kidney doctor), who saw you in the hospital - this week -Dr. Strong, the GI doctor who saw you in the hospital - this week This follow-up is incredibly important. We have discussed this with you and your daughter. Referrals: Bertin Barajas MD [Staff Physician] - 09/02/19 Garfield Osorio MD [Staff Physician] - 1 Week Brandi Strong MD [Staff Physician] - 1 Week Cynthia Vidal MD [Staff Physician] - 1 Week Disposition: HOME This patient is new to me today: No Emergency Visit: No Critical Care patient: No - Discharge Referral Referred to [facility] No <Morenita Banuelos - Last Filed: 08/29/19 15:47> This patient is new to me today: No Emergency Visit: No Critical Care patient: No - Discharge Referral Referred to [facility] No <Raji Purvis - Last Filed: 09/30/19 05:42> ATTENDING PHYSICIAN STATEMENT I saw and evaluated the patient. I reviewed the resident's note and discussed the case with the resident. I agree with the resident's findings and plan as documented. SUBJECTIVE: OBJECTIVE: ASSESSMENT AND PLAN: <Morenita Banuelos - Last Filed: 08/29/19 15:47> ATTENDING PHYSICIAN STATEMENT I saw and evaluated the patient. I reviewed the resident's note and discussed the case with the resident. I agree with the resident's findings and plan as documented. Independently reviewed all labs, imaging findings and test results. Independently verified all omalley historical information and PE findings. Discussed DC planning with resident. No additional complaints per subjective information; stable and has reached maximal benefit from this hospitalization. VS labs imaging reviewed NAD AAO resting in bed HR wnl +s1/2 no mgr NT ND +BS Agree with DC planning as documentated including diet, followups, etc. <Raji Purvis - Last Filed: 09/30/19 05:42>
[2019-08-30] MEDS ORDERED: PANTOPRAZOLE SOD 40 MG SUSPENSION PACKET PO SCH (10:00)
--- NOTE | 2019-09-02 16:27 | PATH ---
Cytology Non-Gynecological Report Patient Name: ALEKSANDRA WILKINSON [facility]. Rec. #: [id number] /Age/Gender: 1950 (Age: 69) / M Account: [id number] Location: [address] [place] [address]/[facility] Taken: 08/27/2019 Received: 08/28/2019 Reported: 09/02/2019 Physicians: MD Vitaliy Rhodes M.D. Specimen(s) Received ABDOMINAL FLUID, RLQ Clinical History Ascites Final Diagnosis ABDOMINAL FLUID, RLQ, PARACENTESIS: SATISFACTORY FOR EVALUATION. NO MALIGNANT CELLS IDENTIFIED. MESOTHELIAL CELLS PRESENT. Comment: Recommend correlation with clinical findings and follow up as clinically indicated. Electronically Signed Anupama Pringle M.D. Gross Description Approximately 50 cc of yellow fluid received fixed in 50% alcohol. One cytofunnel prepared and Pap stained. One cellblock prepared.
--- NOTE | 2019-09-02 18:41 | PATH ---
Surgical Pathology Report Patient Name: ALEKSANDRA WILKINSON [facility]. Rec. #: [id number] /Age/Gender: 1950 (Age: 69) / M Account: [id number] Location: [address] [place] [address] Taken: 08/28/2019 Received: 08/30/2019 Reported: 09/02/2019 Physicians: MD Raji Santillan MD Specimen(s) Received A: DUODENAL ULCER B: BX STOMACH Clinical History Anemia Postoperative diagnosis: Duodenal ulcer, gastritis Final Diagnosis A. DUODENAL ULCER BIOPSY: DUODENAL MUCOSA WITH EROSION, FOCAL ACUTE INFLAMMATION, AND MARKED INCREASED EOSINOPHILS (>70 EOSINOPHILS/HPF) IN THE LAMINA PROPRIA. NEGATIVE FOR GRANULOMATOUS INFLAMMATION, VIRAL INCLUSIONS, OR PARASITES. NO HISTOLOGIC EVIDENCE OF INTRAEPITHELIAL LYMPHOCYTOSIS. CLINICAL CORRELATION TO RULE OUT EOSINOPHILIC ENTERITIS IS RECOMMENDED. B. STOMACH, BIOPSY: GASTRIC MUCOSA WITH CHRONIC GASTRITIS. IMMUNOSTAIN FOR H. PYLORI IS NEGATIVE. NEGATIVE FOR INTESTINAL METAPLASIA. Electronically Signed Preston Barahona M.D. Gross Description A. Received in formalin, labeled "duodenal ulcer biopsy" are 2 maldonado, irregular portions of soft tissue measuring 0.1 and 0.3 cm. in greatest dimension. The specimens are submitted in toto in one cassette. B. Received in formalin, labeled "stomach biopsy" is a maldonado, irregular portion of soft tissue measuring 0.5 cm. in greatest dimension. The specimen is submitted in toto in one cassette. 08/30/2019 saudi08/30/2019
== END 2019-08-29 14:17 | disposition home or self-care (01) | DRG 291 ==
LOC: EDBD 14:42 → JER 14:42 → OBSVTOIN 16:58 → JERBED 16:58 → J4W 18:34 → J5S 08-26 15:18
PROVIDERS: ADMIT Internal Medicine; ATTEND Internal Medicine
PROC: 0W9G3ZX Drainage of Peritoneal Cavity, Percutaneous Approach, Diagnostic (ICD-10-PCS; principal; 2019-08-21)
PROC: 0W9G3ZX Drainage of Peritoneal Cavity, Percutaneous Approach, Diagnostic (ICD-10-PCS; 2019-08-23)
PROC: 30233N1 Transfusion of Nonautologous Red Blood Cells into Peripheral Vein, Percutaneous Approach (ICD-10-PCS; 2019-08-25)
PROC: 0W9G3ZX Drainage of Peritoneal Cavity, Percutaneous Approach, Diagnostic (ICD-10-PCS; 2019-08-27)
PROC: 0DB98ZX Excision of Duodenum, Via Natural or Artificial Opening Endoscopic, Diagnostic (ICD-10-PCS; 2019-08-28)
DX: I13.0 Hypertensive heart and chronic kidney disease with heart failure and stage 1 through stage 4 chronic kidney disease, or unspecified chronic kidney disease (principal); I50.31 Acute diastolic (congestive) heart failure; R18.8 Other ascites; R78.81 Bacteremia; N18.4 Chronic kidney disease, stage 4 (severe); D62 Acute posthemorrhagic anemia; N17.9 Acute kidney failure, unspecified; R55 Syncope and collapse; Z95.0 Presence of cardiac pacemaker; E87.70 Fluid overload, unspecified; E66.3 Overweight; Z68.25 Body mass index [BMI] 25.0-25.9, adult; E78.5 Hyperlipidemia, unspecified; K26.9 Duodenal ulcer, unspecified as acute or chronic, without hemorrhage or perforation; K74.60 Unspecified cirrhosis of liver; K29.80 Duodenitis without bleeding
CPT/HCPCS: 36415; 36430; 36511; 71045-TC-FY; 76775-TC; 76856-TC; 76942; 76942-TC; 80048; 80053; 80074; 81003; 82042; 82150; 82436; 82550; 82553; 82565; 82607; 82728; 82746; 82945; 82962; 83036; 83540; 83550; 83615; 83735; 83880; 83986; 84100; 84133; 84157; 84300; 84478; 84484; 84540; 85025; 85027; 85044; 85610; 85651; 85730; 86140; 86850; 86900; 86901; 86922; 87040; 87070; 87075; 87102; 87116; 87205; 87206; 87210; 87324; 87449; 87522; 88108; 88305-TC; 88342-TC; 93005; 93010; 93306-TC; 93880-TC; 94761; 99284-25; J0735; P9038; P9058